=== PATIENT | male | born 1965 | race African-American/Black ===

== ENCOUNTER 2023-07-02 10:58 | Inpatient (IN) | payer MEDICARE, MEDICAID, SELFPAY ==
[2023-07-02] VITALS (27 sets, daily range): BP systolic 138–188; BP diastolic 81–102; PULSE 99–126; RESP 15–30; TEMP 36.9–39.1; O2SAT 96–100; BMI 27.0
--- NOTE | ~2023-07-02 | CT_ITS ---
Clinical Indication: Bacteremia CT Scan of the Chest, Abdomen, and Pelvis without Contrast: Technique: Contiguous sections were acquired throughout the chest, abdomen, and pelvis without IV con trast administration. Dose reduction technique was used on this scan by utilizing automated exposure control and iterative reconstruction technique. The dose-length product (DLP) was 1613.08 mGy-cm. COMPARISON: 07/02/2023 Findings: There is no evidence of any significant mediastinal, hilar or axillary lymphadenopathy. The mediastin al soft tissues appear normal. There is no evidence of pleural or pericardial effusion. 6 mm right middle lobe pulmonary nodule is increased and more confluent as compared to prior exam. St able 5 mm left lower lobe pulmonary nodule. Focal consolidation or nodule in the superior segment lef t lower lobe is mildly decreased in extent from prior exam (axial image 43). The liver, spleen, pancreas, gallbladder, adrenals and left kidney are within normal limits. Status p ost presumed right nephrectomy. There are atherosclerotic calcifications of the aorta. No lymphadeno bar. No bowel obstruction or bowel wall thickening. There is prominent stool right colon. Evidence of prio r right-sided colonic surgery.. Questionable wall thickening anterior urinary bladder versus underdistention. Prostate gland mildly e nlarged. No ascites. Impression: 6 mm right middle lobe pulmonary nodule, mildly increased and more confluent, and focal consolidation superior segment left lower lobe, mildly improved. These areas are suggestive of infectious/inflamma tory process. Additional 5 mm stable left lower lobe pulmonary nodule, with appearance more suggestive a chronic pu lmonary nodule, most likely benign. Postoperative change in the abdomen/pelvis, as above. Reviewed, dictated and finalized at location M. D CHECKER Impression: 6 mm right middle lobe pulmonary nodule, mildly increased and more confluent, a nd focal consolidation superior segment left lower lobe, mildly improved. These areas are suggestive of infectious/inflammatory process. Additional 5 mm stable left lower lobe pulmonary nodule, with appearance more s uggestive a chronic pulmonary nodule, most likely benign. Postoperative change in the abdomen/pelvis, as above.
--- NOTE | ~2023-07-02 | US_ITS ---
EXAMINATION: US soft tissue UE LT DATE: 07/06/2023 14:46 INDICATION: Left upper extremity abscess. TECHNIQUE: Multiple grayscale and Doppler ultrasound images of the left upper extremity were obtained . COMPARISON: Chest CT 07/02/2023 FINDINGS: There is a left upper arm arteriovenous fistula. No abscess or abnormal fluid collection. IMPRESSION: 1. No abscess or abnormal fluid collection. Reviewed, dictated and finalized at location A. PER
--- NOTE | ~2023-07-02 | CT_ITS ---
CT Scan of the Chest without Contrast: Clinical Indication: Lung mass Technique: Contiguous sections were acquired throughout the chest without intravenous contrast. Dose reduction technique was used on this scan by utilizing automated exposure control and iterative recon struction technique. The dose-length product (DLP) was 345.13 mGy-cm. Findings: There is no evidence of any significant mediastinal, hilar or axillary lymphadenopathy. The mediastin al soft tissues appear normal. There is no evidence of pleural or pericardial effusion. There is an irregular, somewhat nodular 1.8 cm consolidation in the superior segment left lower lobe (axial image 46). There is an additional 5 mm left lower lobe pulmonary nodule (axial image 57). Ther e is an additional 5 mm right middle lobe nodule with presumed focal cavitation (axial image 51). Images through the upper abdomen reveal no abnormalities. There is extensive DISH of the thoracic spi ne. Impression: 1.8 cm area of consolidation versus nodule superior segment left lower lobe. Appearance is more sugge stive of pneumonia, however soft tissue lesion is not completely excluded.. Consider short-term follo w-up CT in 1 month after interval therapy versus attempted tissue sampling. Additional subcentimeter pulmonary nodules, as above. These could also be reassessed at follow-up CT. Reviewed, dictated and finalized at location . TRONIC GLUER Impression: 1.8 cm area of consolidation versus nodule superior segment left lower lobe. Ap pearance is more suggestive of pneumonia, however soft tissue lesion is not com pletely excluded.. Consider short-term follow-up CT in 1 month after interval t herapy versus attempted tissue sampling. Additional subcentimeter pulmonary nodules, as above. These could also be reass essed at follow-up CT.
--- NOTE | ~2023-07-02 | XR_ITS ---
XR chest 2V DATE: 07/02/2023 12:01 INDICATION: Fever, chest tightness TECHNIQUE: PA and lateral views COMPARISON: 03/18/2014 2 view chest FINDINGS: Normal heart size. No hilar or mediastinal enlargement. Possible approximately 12 mm nodular density, left mid lung. CT thorax is recommended. No pulmonary infiltrate or consolidation, pleural effusion or pulmonary vascular congestion or pneumo thorax. Spurring and mild dextroscoliosis of the thoracolumbar spine. Osteoarthritis at both glenohumeral joints. IMPRESSION: Possible 12 mm mass , left mid lung; CT thorax is recommended. Reviewed, dictated and finalized at location B. RER
--- NOTE | 2023-07-02 11:06 | ECG_ITS ---
Measurements Intervals [place] Rate: 107 P: 17 GA: 146 QRS: -18 QRSD: 88 T: 22 QT: 326 QTc: 436 Interpretive Statements SINUS TACHYCARDIA ATRIAL AND VENTRICULAR PREMATURE COMPLEXES POSSIBLE LEFT ATRIAL ENLARGEMENT POSSIBLE LEFT VENTRICULAR HYPERTROPHY BORDERLINE ECG NO PREVIOUS ECG AVAILABLE FOR COMPARISON Electronically Signed On 07-02-2023 11:16:37 MANUFACTURED BUILDINGS SUPERVISOR by Monty Davidson D.O.
[2023-07-02] MEDS: ACETAMINOPHEN 325 MG TABLET 650 MG PO ×2 (11:23→20:23)
[2023-07-02 11:30] LABS: Basophils Percent Auto 0.3 % (0.2-1.2); Hematocrit 35.4 % (42.0-52.0); Hemoglobin 11.8 g/dL (14.0-18.0); Immature Granulocyte Absolute 0.04 K/mm3 (0.00-0.031); Immature Granulocyte Percent A 0.5 % (0-0.5); Immature Platelet Fraction Pct 5.1 % (0.9-11.2); Lymphocytes Percent Auto 6.5 % (18.3-44.2); Mean Corpuscular HGB Conc 33.3 g/dl (32-36); Mean Corpuscular Volume 98.9 fl (80-100); Mean Platelet Volume 10.5 fl (7.4-10.4); Monocytes Absolute Auto 0.5 K/mm3 (0.1-0.6); Monocytes Percent Auto 6.7 % (2.6-8.5); Neutrophils Absolute Auto 6.6 K/mm3 (1.3-6.7); Platelet Count Result 85 k/mm3 (150-375); Red Blood Count 3.58 M/mm3 (4.6-6.20); White Blood Count 7.7 K/mm3 (4.5-10.0)
[2023-07-02 11:36] LABS: INR 0.9; Prothrombin Time 12.2 Seconds (11.1-14.7)
[2023-07-02 11:37] LABS: Partial Thromboplastin Time 34.7 SECONDS (22.3-36.8)
[2023-07-02 11:41] LABS: Alanine Aminotransferase 29 U/L (6-50); Albumin Level 4.7 g/dL (3.5-5.1); Alkaline Phosphatase 72 U/L (38-126); Anion Gap 15 mmol/L (8-16); Aspartate Amino Transferase 64 U/L (17-59); Bilirubin,Total 0.8 mg/dL (0.2-1.3); Blood Urea Nitrogen 19 mg/dL (9-20); Calcium 9.8 mg/dL (8.4-10.2); Carbon Dioxide 31 mmol/L (22-30); Chloride 89 mmol/L (98-107); Estimated CRCL calculation 21 ml/min; Estimated Glomerular Filt Rate 19; Glucose 106 mg/dL (65-110); Potassium 3.9 mmol/L (3.4-5.0); Sodium 135 mmol/L (137-145)
[2023-07-02 12:07] LABS: Influenza A QL RT-PCR Negative (Negative); Influenza B QL RT-PCR Negative (Negative); RSV RNA, RT-PCR Negative (Negative); SARS-CoV-2 RNA PCR Negative (Negative); Troponin I 0.113 ng/mL (0.000-0.034)
--- NOTE | 2023-07-02 12:21 | ED.GENADULT ---
HPI - General Adult General Chief complaint: Unspecified Stated complaint: sick case Time Seen by Provider: 07/02/23 11:10 History of Present Illness HPI narrative: Patient is a 58-year-old male who presents ER with chest pain and shaking. Patient finished his dialysis today and was sent to the ER. Patient reports over last 3 days he has been feeling weak and short of breath. He has had cough and fevers/ chills. He has also had some central chest pain. No radiation. No alleviating factors for his discomfort. No known sick contacts. Related Data Home Medications Medication Instructions Recorded Confirmed allopurinol 300 mg tablet 300 mg PO DAILY 07/02/23 07/02/23 atorvastatin 40 mg tablet 40 mg PO DAILY 07/02/23 07/02/23 clonidine HCl 0.2 mg tablet 0.2 mg PO BID 07/02/23 07/02/23 ergocalciferol (vitamin D2) 1,250 1,250 mcg PO DAILY 07/02/23 07/02/23 mcg (50,000 unit) capsule pantoprazole 40 mg tablet,delayed 40 mg PO DAILY 07/02/23 07/02/23 release sodium bicarbonate 650 mg tablet 650 mg PO BID 07/02/23 07/02/23 Allergies Allergy/AdvReac Type Severity Reaction Status Date / Time No Known Allergies Allergy Unverified 02/16/21 15:51 Review of Systems Review of Systems: All systems reviewed & are unremarkable except as noted in HPI and below Constitutional: Constitutional: Reports no additional constitutional complaints ENT: Reports system reviewed and no additional complaints, except as documented Cardiovascular: Cardiovascular: Reports no additional cardiovascular complaints Respiratory: Respiratory: Reports no additional respiratory complaints Gastrointestinal: Gastrointestinal: Reports no additional gastrointestinal complaints [facility] Past Medical History Medical History (Updated 07/02/23 @ 18:40 by Josue Gonsales MD) End stage renal disease GERD (gastroesophageal reflux disease) Hyperlipidemia Hypertension Surgical History Surgical History (Updated 07/02/23 @ 18:38 by Josue Gonsales MD) Hemodialysis access, AV graft Social History Social History (System 02/16/21 @ 15:51 by Minerva Mendoza) Smoking status: Never smoker Second hand tobacco smoke exposure: No Additional smoking assessment comments: Daily marijuana smoker from pipe Alcohol intake: current Drinks per week: 175 Substance use: current Substance use type: marijuana Do You Feel Safe in your Home?: Yes Lack of Transportation: No Lack of Food: Never True Current Housing: I Have Housing Concerned About Future Housing: No Difficulty Paying Gas/Electric Bills: No Difficulty Paying for Meds: No Currently Unemployed: No Education: Don't Know Difficulty w/ Childcare or Family Care: No Spiritual care concerns: No Exam Narrative: GENERAL: Well-appearing, well-nourished, and in no acute distress. HEAD: Normocephalic, atraumatic. ENT: Mucous membranes moist. NECK: Supple. CHEST: Clear to auscultation. No respiratory distress. HEART: Tachycardic and regular. Normal peripheral pulses. ABDOMEN: Soft, nontender, nondistended. EXTREMITIES: Normal range of motion. No deformity. SKIN: Warm, dry, no rash. NEURO: Alert and oriented x3. PSYCH: Normal mood and affect. Course Vital Signs Vital signs: Vital Signs Temperature 100.3 F H 07/02/23 10:58 Pulse Rate 105 H 07/02/23 10:58 Respiratory Rate 07/02/23 10:58 Pulse Oximetry 100 07/02/23 10:58 Oxygen Delivery Room Air 07/02/23 10:58 Temperature 98.4 F 07/02/23 16:15 Pulse Rate 125 H 07/02/23 18:00 Respiratory Rate 07/02/23 16:15 Blood Pressure 182/98 H 07/02/23 16:15 Pulse Oximetry 100 07/02/23 16:15 Oxygen Delivery Room Air 07/02/23 10:58 Medical Decision Making Vital Signs Vital Signs: Vital Signs Temperature 100.3 F H 07/02/23 10:58 Pulse Rate 105 H 07/02/23 10:58 Respiratory Rate 07/02/23 10:58 Pulse Oximetry 100 07/02/23 10:58 Oxygen Delivery
[2023-07-02] MEDS: AZITHROMYCIN 500 MG/NS 250 ML 500 MG/250 ML BAG 250 MG IVPB (15:27)
--- NOTE | 2023-07-02 15:46 | ADMGEN ---
This patient, Harrison Bains, was admitted to IMU Room 209-01. Patient/family oriented to hospital policies and general routines including ID bracelet, bed and alarms, visiting hours, pain management, procedures, bathroom and other care routines, personal items, smoking policy, room service/diet, and visiting hours. Information on how to activate the Rapid Response Team has been discussed. Patient/Family are encouraged to report perceived risks to care and to ask questions if they do not understand what they are told or what they should do.
[2023-07-02] MEDS: LORazepam INJ (*CRX) 2 MG/ML VIAL IV PUSH ×2 (17:18→20:23)
[2023-07-02] MEDS: chlordiazePOXIDE (*CRX) 25 MG CAPSULE PO (17:18)
[2023-07-02 18:16] LABS: Glucose Point of Care 106 mg/dl (65-105)
[2023-07-02 18:40] LABS: Troponin I 0.116 ng/mL (0.000-0.034)
[2023-07-02 22:04] LABS: Troponin I 0.136 ng/mL (0.000-0.034)
[2023-07-02] MEDS: chlordiazePOXIDE (*CRX) 25 MG CAPSULE 50 MG PO (23:08)
--- NOTE | 2023-07-02 23:13 | PM.IMHP ---
H&P: HPI History of Present Illness Date/Time: 07/02/23 23:13 Chief Complaint: Patient came to the ER for evaluation because of his shaking and chest pain. Narrative: He is a 58 years old white male with ESRD on hemodialysis who was finishing up his hemodialysis earlier today and was sent to the ER for evaluation as he was feeling weak, short of breath and was shaking. He also had some cough and fever with chills. He is also complaining of chest pain located in the anterior chest without any radiation, intensity 2 to 4/10 without any palpitations or sweating. He is chronic alcohol user and drinks alcohol every day. Chest x-ray was done which showed a possible 12 mm mass in the left middle lobe recommending CT scan of thorax which showed findings consistent with pneumonia. He was started on IV antibiotics and medications for alcohol withdrawal and is being admitted for medical management, hemodialysis and close follow-up. Review of Systems Review of Systems: 14 systems were reviewed with pertinent positives and negatives per HPI. Except as documented in the HPI/progress notes, all other systems were reviewed and are negative. All systems reviewed & are unremarkable except as noted in HPI and below PMFSH Past Medical History Medical History (Updated 07/03/23 @ 00:29 by Ray Boss MD) Abnormal CT of the chest Chronic alcohol use End stage renal disease GERD (gastroesophageal reflux disease) Hyperlipidemia Hypertension Surgical History Surgical History Hemodialysis access, AV graft Social History Social History Smoking status: Never smoker Second hand tobacco smoke exposure: No Additional smoking assessment comments: Daily marijuana smoker from pipe Alcohol intake: current Drinks per week: 175 Substance use: current Substance use type: marijuana Do You Feel Safe in your Home?: Yes Lack of Transportation: No Lack of Food: Never True Current Housing: I Have Housing Concerned About Future Housing: No Difficulty Paying Gas/Electric Bills: No Difficulty Paying for Meds: No Currently Unemployed: No Education: Don't Know Difficulty w/ Childcare or Family Care: No Spiritual care concerns: No Meds Home Medications and Allergies Home Medications Medication Instructions Recorded Confirmed Type allopurinol 300 mg tablet 300 mg PO DAILY 07/02/23 07/02/23 History atorvastatin 40 mg tablet 40 mg PO DAILY 07/02/23 07/02/23 History clonidine HCl 0.2 mg tablet 0.2 mg PO BID 07/02/23 07/02/23 History ergocalciferol (vitamin D2) 1,250 1,250 mcg PO DAILY 07/02/23 07/02/23 History mcg (50,000 unit) capsule pantoprazole 40 mg tablet,delayed 40 mg PO DAILY 07/02/23 07/02/23 History release sodium bicarbonate 650 mg tablet 650 mg PO BID 07/02/23 07/02/23 History Allergies Allergy/AdvReac Type Severity Reaction Status Date / Time No Known Allergies Allergy Unverified 02/16/21 15:51 Vital Signs Vital Signs - 24 hr 07/02/23 10:58 07/02/23 12:16 07/02/23 11:35 Temperature 37.9 C H 37.8 C H Pulse Rate 105 H 105 H Respiratory Rate 20 16 Blood Pressure Pulse Oximetry 100 Oxygen Delivery Room Air 07/02/23 11:45 07/02/23 12:48 07/02/23 13:00 Temperature Pulse Rate 106 H 109 H 104 H Respiratory Rate 25 H 18 22 H Blood Pressure Pulse Oximetry Oxygen Delivery 07/02/23 13:15 07/02/23 13:30 07/02/23 13:31 Temperature Pulse Rate 101 H 99 111 H Respiratory Rate 15 16 18 Blood Pressure 148/91 H Pulse Oximetry 99 99 100 Oxygen Delivery 07/02/23 13:39 07/02/23 13:45 07/02/23 14:00 Temperature Pulse Rate 101 H 100 102 H Respiratory Rate 26 H 17 27 H Blood Pressure 160/87 H Pulse Oximetry 99 99 97 Oxygen Delivery 07/02/23 14:01 07/02/23 14:15 07/02/23 14:38 Temperature Pulse Rate 101 H 104 H 109 H Respiratory Rate
[2023-07-03] VITALS (12 sets, daily range): BP systolic 107–146; BP diastolic 68–87; PULSE 63–144; RESP 20–32; TEMP 36.8–37.4; O2SAT 94–100
--- NOTE | 2023-07-03 00:26 | ECHO_ITS ---
Patient Info Name: Harrison Bains Age: 58 years : 1965 Gender: Male Ht: 72 in Wt: 202 lbs BSA: 2.17 m2 HR: 96 bpm BP: 141 / 82 mmHg Heart Rhythm: Sinus Rhythm Technical Quality: Good Exam Date: 07/03/2023 8:57 AM Exam Location: Echo Lab Patient Status: Inpatient Admit Date: 07/03/2023 Staff Ordering Physician: Ray Boss MD Reel And Rewinder Operator: Talya Goody RDCS Attending Provider: Danika Duran MD Exam Type: CA echo doppler color flow Study Info Indications - chest pain/elevated troponin Complete two-dimensional, color flow and Doppler transthoracic echocardiogram is performed. Summary 1. Complete two-dimensional, color flow and Doppler transthoracic echocardiogram is performed. 2. Left ventricular chamber dimension is normal. 3. Left ventricular systolic function is normal, estimated at 60-65%. 4. There is moderately increased left ventricular wall thickness. 5. The left ventricular diastolic function is grade I diastolic dysfunction. 6. Right ventricular systolic function is normal. 7. There is mild aortic valve regurgitation. 8. The aortic root size at the sinus of Valsalva is mildly dilated. Left Ventricle Left ventricular chamber dimension is normal. Left ventricular systolic function is normal, estimated at 60-65%. There is moderately increased left ventricular wall thickness. The left ventricular diastolic function is grade I diastolic dysfunction. Right Ventricle Right ventricular chamber dimension is normal. Right ventricular systolic function is normal. Left Atria Left atrial chamber dimension is normal. Right Atria Right atrial chamber dimension is normal. Atrial Septum Intact interatrial septum visualized by color flow imaging. Aortic Valve The aortic valve is not well visualized. There is no aortic valve stenosis. There is mild aortic valve regurgitation. Pulmonic Valve The pulmonic valve is not well visualized. Mitral Valve There is trace mitral valve regurgitation. Tricuspid Valve There is trace tricuspid valve regurgitation. Pericardium/Pleural There is no pericardial effusion. Inferior Vena Cava Inferior vena cava is not well visualized. Aorta The aortic root size at the sinus of Valsalva is mildly dilated. Left Ventricular Outflow Tract Name Value Normal LVOT 2D LVOT Diameter 2.2 cm LVOT Doppler LVOT Peak Gradient 4 mmHg LVOT Mean Gradient 2 mmHg LVOT VTI 27 cm LVOT VTI/AV VTI Ratio 1.1 LVOT Stroke Volume 102 ml LVOT CO 8.3 l/min LVOT CI 3.8 l/min/m2 Pulmonic Valve Name Value Normal RVOT Doppler RVOT Peak Gradient 2 mmHg PV Doppler PV Peak Gradient 2 mmHg
[2023-07-03] MEDS: chlordiazePOXIDE (*CRX) 25 MG CAPSULE 50 MG PO (05:03)
[2023-07-03 05:29] LABS: Basophils Percent Auto 0.1 % (0.2-1.2); Eosinophils Absolute Auto 0.2 K/mm3 (0-0.3); Eosinophils Percent Auto 2.3 % (0-4.4); Hematocrit 31.7 % (42.0-52.0); Hemoglobin 10.5 g/dL (14.0-18.0); Immature Granulocyte Absolute 0.07 K/mm3 (0.00-0.031); Immature Granulocyte Percent A 0.8 % (0-0.5); Immature Platelet Fraction Pct 8.3 % (0.9-11.2); Lymphocytes Absolute Auto 0.74 K/mm3 (0.9-3.2); Lymphocytes Percent Auto 8.6 % (18.3-44.2); Mean Corpuscular HGB Conc 33.1 g/dl (32-36); Mean Corpuscular Volume 99.7 fl (80-100); Mean Platelet Volume 11.9 fl (7.4-10.4); Monocytes Percent Auto 11.3 % (2.6-8.5); Neutrophils Absolute Auto 6.6 K/mm3 (1.3-6.7); Neutrophils Percent Auto 76.9 % (45.5-73.1); Platelet Count Result 72 k/mm3 (150-375); Red Blood Count 3.18 M/mm3 (4.6-6.20); Red Cell Distribution Width 17.5 % (11.5-14.5); White Blood Count 8.6 K/mm3 (4.5-10.0)
[2023-07-03 06:07] LABS: Anisocytosis 1+ (NORMAL); Hypochromasia 1+ (NORMAL); Platelet Estimate Decreased (Adequate)
[2023-07-03 06:08] LABS: Schistocytes None Seen (NORMAL)
--- NOTE | 2023-07-03 07:00 | ECG_ITS ---
Measurements Intervals [place] Rate: 87 P: 31 AK: 149 QRS: -20 QRSD: 89 T: 23 QT: 365 QTc: 439 Interpretive Statements SINUS RHYTHM VENTRICULAR PREMATURE COMPLEX VOLTAGE CRITERIA FOR LVH BORDERLINE ECG COMPARED TO ECG 07/02/2023 11:12:11 SINUS RHYTHM NOW PRESENT Electronically Signed On 07-03-2023 12:59:13 LITHOGRAPHIC RETOUCHER APPRENTICE by Monty Davidson D.O.
[2023-07-03 07:21] LABS: Anion Gap 13 mmol/L (8-16); Blood Urea Nitrogen 38 mg/dL (9-20); Calcium 8.8 mg/dL (8.4-10.2); Carbon Dioxide 27 mmol/L (22-30); Chloride 91 mmol/L (98-107); Estimated CRCL calculation 13 ml/min; Estimated Glomerular Filt Rate 11; Glucose 79 mg/dL (65-110); Potassium 5.1 mmol/L (3.4-5.0); Sodium 131 mmol/L (137-145)
[2023-07-03 07:34] LABS: Troponin I 0.142 ng/mL (0.000-0.034)
[2023-07-03] MEDS: ATORVASTATIN 40 MG TABLET PO (08:10)
[2023-07-03] MEDS: THIAMINE HCL 200 MG/2 ML VIAL 100 MG IV PUSH (08:10)
[2023-07-03] MEDS: PANTOPRAZOLE 40 MG TABLET PO (08:10)
[2023-07-03] MEDS: cloNIDine HCL 0.2 MG TABLET PO ×2 (08:10→18:50)
[2023-07-03] MEDS: allopurinoL 300 MG TABLET PO (08:10)
[2023-07-03] MEDS: SODIUM BICARBONATE TAB 650 MG TABLET PO ×2 (08:10→18:50)
[2023-07-03] MEDS: HYDROcodone/acetaminophen (*CRX) 5-325 MG TABLET 1 TAB PO ×2 (08:14→15:53)
--- NOTE | 2023-07-03 08:54 | PM.IMPN ---
Progress Note: A&P Assessment and Plan (1) Abnormal CT of the chest: Code(s): R93.89 - Abnormal findings on diagnostic imaging of other specified body structures Status: Acute (2) Alcohol withdrawal: Code(s): F10.939 - Alcohol use, unspecified with withdrawal, unspecified Status: Acute (3) Elevated troponin: Code(s): R79.89 - Other specified abnormal findings of blood chemistry Status: Acute (4) Chronic alcohol use: Code(s): F10.90 - Alcohol use, unspecified, uncomplicated Status: Acute (5) Pneumonia: Code(s): J18.9 - Pneumonia, unspecified organism Status: Acute (6) Chest pain: Code(s): R07.9 - Chest pain, unspecified Status: Acute Plan 58M w/ PMH alcohol abuse, GERD, HLD, HTN, ESRD on dialysis MWF presents with shaking and chest soreness admitted on 07/02/23. # tremors - no LOC, possibly 2/2 to alcohol withdrawal although unlikely given his continued heavy and sustained use, possibly 2/2 to CAP, he also felt feverish. resolved. # CAP - cont ceftriaxone and azithromycin. blood cultures pending. no evidence of sepsis. treat for 5 days - 12mm mass in left lung. repeat CT 1 month after treatment of pneumonia # alcohol abuse with possible alcohol withdrawal - decrease librium to 25mg po tid. cont CIWA protocol. thiamine and folate daily. - counseled. pt wants to change from 2 liters of wine to 1 liter of wine per day but no less. care coordination consultation - PT/OT - thrombocytopenia, likely 2/2 to cirrhosis/alcohol # elevated troponin - currently flat. cont to trend. chest pain atypical. EKG w/o acute ischemia # ESRD on dialysis MWF - last dialysis Friday. consult nephrology # HTN - controlled. CPM # GERD - CPM FEN: saline lock IV, renal diet GI prophylaxis: on home dosing DVT prophylaxis: lovenox Lines: pIV Code Status: Full Code Dispo: stable. More than 35 minutes spent on chart review, patient interaction and assessment and plan. Subjective Date/time seen: 07/03/23 08:54 Interval history: NAOE. pt reports his shaking is gone after this morning's medications. he feels back to his normal. Review of Systems Review of Systems: All systems reviewed & are unremarkable except as noted in HPI and below (subjective) Exam Const: General: comfortable and no acute distress HENMT: Other: poor dentition Eyes: Pupils: Equal, round and reactive pupils present Resp: Effort & Inspection: normal respiratory effort Auscultation: clear to auscultation bilaterally Cardio: Rate: regular rate Rhythm: regular rhythm Heart sounds: no gallops, no murmurs and no rubs GI: GI Palp: Yes Soft to palpation and No Tenderness to palpation present (GI) Extrem: General: no edema Objective Data Vital Signs Vital Signs: Vital Signs - 24 hr 07/02/23 10:58 07/02/23 12:16 07/02/23 11:35 Temperature 100.3 F H 100.0 F H Pulse Rate 105 H 105 H Respiratory Rate 20 16 Blood Pressure Pulse Oximetry 100 Oxygen Delivery Room Air 07/02/23 11:45 07/02/23 12:48 07/02/23 13:00 Temperature Pulse Rate 106 H 109 H 104 H Respiratory Rate 25 H 18 22 H Blood Pressure Pulse Oximetry Oxygen Delivery 07/02/23 13:15 07/02/23 13:30 07/02/23 13:31 Temperature Pulse Rate 101 H 99 111 H Respiratory Rate 15 16 18 Blood Pressure 148/91 H Pulse Oximetry 99 99 100 Oxygen Delivery 07/02/23 13:39 07/02/23 13:45 07/02/23 14:00 Temperature Pulse Rate 101 H 100 102 H Respiratory Rate 26 H 17 27 H Blood Pressure 160/87 H Pulse Oximetry 99 99 97 Oxygen Delivery 07/02/23 14:01 07/02/23 14:15 07/02/23 14:38 Temperature Pulse Rate 101 H 104 H 109 H Respiratory Rate 27 H 30 H 24 H Blood Pressure 156/92 H Pulse Oximetry Oxygen Delivery 07/02/23 14:45 07/02/23 15:35 07/02/23 16:15 Temperature 98.9 F 98.4 F Pulse Rate 110 H 115 H 119 H Respiratory Rate 16 28 H 20 Blood Pressur
[2023-07-03 11:59] LABS: Glucose Point of Care 123 mg/dl (65-105)
[2023-07-03 12:18] LABS: Troponin I 0.092 ng/mL (0.000-0.034)
--- NOTE | 2023-07-03 13:20 | PM.CNNEP ---
Assessment and Plan Assessment and plan (1) End stage renal disease: Code(s): N18.6 - End stage renal disease Status: Chronic Assessment and Plan: HD tomorrow continue M/W/F dialysis schedule while hospitalized follow electrolytes, volume status, and clearance follows with Dr. Hayes at [facility] (2) Pneumonia: Code(s): J18.9 - Pneumonia, unspecified organism Status: Acute Assessment and Plan: as noted by admission imaging follow culture data on antibiotics (3) Hypertension: Code(s): I10 - Essential (primary) hypertension Status: Chronic Assessment and Plan: reasonable control at this time follow trend of hemodynamics (4) Anemia: Code(s): D64.9 - Anemia, unspecified Status: Chronic Assessment and Plan: due to ESRD Epogen with HD follow trend of H/H (5) Alcohol withdrawal: Code(s): F10.939 - Alcohol use, unspecified with withdrawal, unspecified Status: Acute Assessment and Plan: known history of alcohol use tremor related to withdrawal (?) - seems less likely resolved if not resolving I will continue follow the patient with you while he remains hospitalized and make further recommendations as needed. Thank you for allowing me to participate in the care of this patient. History of Present Illness Reason for Consult Consult date: 07/03/23 Reason for consult: end stage renal disease Chief Complaint Chief complaint: chest pain,pneumonia History of Present Illness Narrative: The patient is a 58-year-old male with a past medical history as outlined below who presented to [facility] Emergency room due to mild shortness of breath, weakness, and shaking. The patient reports that he has been having some productive cough in association with subjective fevers and chills. However, more recently, he has stated that he feels more weaker / fatigued in general in association with mild shortness of breath and shaking hands thought to be tremors. Has the symptoms seem to be progressively getting worse, he presented to the emergency room for further assessment. Workup and evaluation emergency room demonstrated the patient to be hemodynamically stable and in no acute distress. Routine blood work demonstrated labs consistent with his known history of end-stage renal disease but his chest x-ray did demonstrate a 12 mm mass in the left middle lobe with recommendations of a CT scan of the chest. Subsequent CT scan of the chest demonstrated findings consistent with pneumonia. After appropriate cultures were obtained, he was started on IV antibiotic therapy and subsequently admitted to the hospital for further evaluation and therapy. There was some concerns that his shaking maybe early signs of alcohol withdrawal as he does consume a great deal of alcohol every day. He was initiated on alcohol withdrawal protocol as well. Since his admission, he reports feeling significantly better but still not back to baseline. Renal consultation was requested due to his end-stage renal disease. The patient normally dialyzes on a Friday, Friday, Friday dialysis schedule at [facility] under the care of Dr. Cuong Hayes. He reports compliance with his dialysis treatments and not having any significant issues or problems in general with dialysis. His last dialysis treatment was yesterday prior to his presentation to [facility] Emergency Room. He is due for dialysis tomorrow. Currently, at the time my evaluation, he does not appear to be in acute distress. Review of Systems Review of Systems: As per HPI. [facility] Past Medical History Medical History Abnormal CT of the chest Chronic alcohol use End stage renal disease GERD (gastroesophageal reflux disease) Hyperlipidemia Hypertension Surg
[2023-07-03] MEDS: VANCOMYCIN 2,000 MG/NS 500 ML 2,000 MG/500 ML BAG 250 MG IVPB (13:42)
[2023-07-03] MEDS: AZITHROMYCIN 500 MG/NS 250 ML 500 MG/250 ML BAG 250 MG IVPB (13:42)
[2023-07-03] MEDS: chlordiazePOXIDE (*CRX) 25 MG CAPSULE PO ×2 (13:43→21:28)
[2023-07-03 18:44] LABS: Glucose Point of Care 142 mg/dl (65-105)
[2023-07-04] VITALS (35 sets, daily range): BP systolic 90–148; BP diastolic 44–86; PULSE 75–105; RESP 16–24; TEMP 36.2–38.7; O2SAT 94–100
[2023-07-04] MEDS: chlordiazePOXIDE (*CRX) 25 MG CAPSULE PO (05:37)
[2023-07-04 05:55] LABS: Basophils Percent Auto 0.2 % (0.2-1.2); Eosinophils Percent Auto 0.5 % (0-4.4); Hematocrit 28.7 % (42.0-52.0); Hemoglobin 9.4 g/dL (14.0-18.0); Immature Granulocyte Absolute 0.03 K/mm3 (0.00-0.031); Immature Granulocyte Percent A 0.5 % (0-0.5); Lymphocytes Absolute Auto 0.76 K/mm3 (0.9-3.2); Lymphocytes Percent Auto 12.1 % (18.3-44.2); Mean Corpuscular HGB Conc 32.8 g/dl (32-36); Mean Corpuscular Hemoglobin 32.6 pg (26-34); Mean Corpuscular Volume 99.7 fl (80-100); Mean Platelet Volume 12.4 fl (7.4-10.4); Monocytes Absolute Auto 0.9 K/mm3 (0.1-0.6); Monocytes Percent Auto 13.7 % (2.6-8.5); Neutrophils Absolute Auto 4.6 K/mm3 (1.3-6.7); Platelet Count Result 90 k/mm3 (150-375); Red Blood Count 2.88 M/mm3 (4.6-6.20); Red Cell Distribution Width 17.3 % (11.5-14.5); White Blood Count 6.3 K/mm3 (4.5-10.0)
[2023-07-04 05:57] LABS: Anion Gap 12 mmol/L (8-16); Blood Urea Nitrogen 70 mg/dL (9-20); Calcium 8.8 mg/dL (8.4-10.2); Carbon Dioxide 25 mmol/L (22-30); Chloride 91 mmol/L (98-107); Estimated CRCL calculation 10 ml/min; Estimated Glomerular Filt Rate 8; Glucose 97 mg/dL (65-110); Magnesium 2.1 mg/dL (1.6-2.3); Phosphorus 5.3 mg/dL (2.5-4.5); Potassium 4.9 mmol/L (3.4-5.0); Sodium 128 mmol/L (137-145)
[2023-07-04 06:00] LABS: Vancomycin Random 21.8 ug/mL (10-20)
[2023-07-04 06:57] LABS: Hepatitis B Surface Antigen Negative (Negative)
[2023-07-04 07:16] LABS: Hepatitis B Surface Anti Res Positive
[2023-07-04 07:29] LABS: MRSA (PCR) NOT DETECTED (NOT DETECTE)
[2023-07-04] MEDS: allopurinoL 300 MG TABLET PO (08:16)
[2023-07-04] MEDS: ENOXAPARIN 30 MG/0.3 ML SYRINGE SUB-Q (08:16)
[2023-07-04] MEDS: SODIUM BICARBONATE TAB 650 MG TABLET PO ×2 (08:16→17:05)
[2023-07-04] MEDS: ATORVASTATIN 40 MG TABLET PO (08:16)
[2023-07-04] MEDS: THIAMINE HCL 200 MG/2 ML VIAL 100 MG IV PUSH (08:17)
[2023-07-04] MEDS: PANTOPRAZOLE 40 MG TABLET PO (08:17)
[2023-07-04] MEDS: cloNIDine HCL 0.2 MG TABLET PO ×2 (08:17→17:05)
[2023-07-04] MEDS: FOLIC ACID 1 MG TABLET PO (08:17)
--- NOTE | 2023-07-04 10:16 | PM.PNNEP ---
Progress Note: A&P Assessment and Plan (1) End stage renal disease: Code(s): N18.6 - End stage renal disease Status: Chronic Assessment and Plan: HD today continue M/W/F dialysis schedule while hospitalized follow electrolytes, volume status, and clearance follows with Dr. Hayes at [facility] (2) Bacteremia: Code(s): R78.81 - Bacteremia Status: Acute Assessment and Plan: blood cultures with StapStaphylococcus aureus follow repeat culture on antibiotic therapy (3) Pneumonia: Code(s): J18.9 - Pneumonia, unspecified organism Status: Acute Assessment and Plan: as noted by admission imaging culture data noted on antibiotics (4) Hypertension: Code(s): I10 - Essential (primary) hypertension Status: Chronic Assessment and Plan: reasonable control at this time follow trend of hemodynamics (5) Anemia: Code(s): D64.9 - Anemia, unspecified Status: Chronic Assessment and Plan: due to ESRD Epogen with HD follow trend of H/H Will continue to follow. Subjective Date/time seen: 07/04/23 10:16 Interval history: Follow-up for end stage renal disease on hemodialysis. Tolerating dialysis treatment at the time of my visit (seen on HD at 10:05PM); tremor seems to have resolved; not very talkative currently; no apparent distress voiced. Exam Narrative: General: WD/WN male in NAD Heart: normal S1 and S2; no rub Lungs: clear to auscultation Abdomen: soft, nontender, nondistended, positive bowel sounds Extremities: no cyanosis or clubbing; no edema Skin: warm and dry Objective Data Vital Signs Vital Signs: Vital Signs Temp Pulse Pulse Resp BP Pulse Ox O2 Del Method 07/04/23 10:15 89 111/63 07/04/23 10:00 86 118/64 07/04/23 09:45 89 130/73 07/04/23 09:30 89 128/77 07/04/23 09:14 91 122/66 07/04/23 09:02 98.8 F 93 16 135/76 98 07/04/23 09:02 07/04/23 08:00 88 22 H 99 Room Air 07/04/23 08:00 88 07/04/23 08:00 88 148/86 H 07/04/23 07:37 97.1 F L 81 24 H 148/86 H 99 07/04/23 05:52 83 07/04/23 04:00 98.4 F 83 24 H 123/76 96 07/04/23 04:00 79 22 H 94 Room Air 07/04/23 04:00 135/86 07/04/23 04:00 79 07/04/23 01:47 78 07/04/23 00:00 80 22 H 94 Room Air 07/04/23 00:00 135/86 07/04/23 00:00 80 07/03/23 23:46 98.6 F 80 22 H 135/86 94 07/03/23 22:00 84 07/03/23 20:00 84 24 H 95 Room Air 07/03/23 20:00 107/68 07/03/23 20:00 84 07/03/23 20:00 99.4 F 63 24 H 107/68 95 07/03/23 17:56 96 07/03/23 16:00 144 H 24 H 98 Room Air 07/03/23 16:00 145/87 H 07/03/23 16:00 144 H 07/03/23 16:00 99.4 F 100 24 H 145/87 H 98 Intake/Output Intake/Output: Intake & Output 07/01/23 07/02/23 07/03/23 07/04/23 23:59 23:59 23:59 23:59 Intake Total 740 1989 480 Balance 740 1989 480 Meds/Results Medications: Active Medications Generic Name Dose Route Start Last Admin Trade Name Freq PRN Reason Stop Dose Admin Acetaminophen 650 mg 07/03/23 00:25 07/04/23 15:14 Acetaminophen 325 Mg Tablet PO 650 mg Q4H PRN Administration Mild Pain (1-3) or Fever Hydrocodone Bitart/Acetaminophen 1 tab 07/02/23 14:20 07/03/23 15:53 Hydrocodone/Acetaminophen (*Crx) 5-325 Mg Tablet PO 1 tab Q4H PRN Administration Pain Rated 4-6 Al Hydrox/Mg Hydrox/Simethicone 30 ml 07/03/23 00:25 Mag Hydrox/Al Hydrox/Simeth 30 Ml Udc PO QID PRN Dyspepsia Allopurinol 300 mg 07/03/23 09:00 07/04/23 08:16 Allopurinol 300 Mg Tablet PO 300 mg DAILY SHERRIE Administration Atorvastatin Calcium 40 mg 07/03/23 09:00 07/04/23 08:16 Atorvastatin 40 Mg Tablet PO 40 mg DAILY SHERRIE Administration Azithromyc
[2023-07-04] MEDS: ALBUMIN HUMAN 25% 12.5 GM/50ML 50 ML 999 GM ×2 (10:50→12:00)
[2023-07-04] MEDS: EPOETIN ALFA-EPBX 10,000 UNITS/ML VIAL 10000 UNITS IV PUSH (11:00)
[2023-07-04] MEDS: SODIUM CHLORIDE 0.9% IV 1,000 ML 999 ML IV CONT (11:01)
--- NOTE | 2023-07-04 12:14 | PM.IMPN ---
Progress Note: A&P Assessment and Plan (1) Anemia: Code(s): D64.9 - Anemia, unspecified Status: Chronic (2) Hypertension: Code(s): I10 - Essential (primary) hypertension Status: Chronic (3) End stage renal disease: Code(s): N18.6 - End stage renal disease Status: Chronic (4) Abnormal CT of the chest: Code(s): R93.89 - Abnormal findings on diagnostic imaging of other specified body structures Status: Acute (5) Alcohol withdrawal: Code(s): F10.939 - Alcohol use, unspecified with withdrawal, unspecified Status: Acute (6) Chronic alcohol use: Code(s): F10.90 - Alcohol use, unspecified, uncomplicated Status: Acute (7) Elevated troponin: Code(s): R79.89 - Other specified abnormal findings of blood chemistry Status: Acute (8) Pneumonia: Code(s): J18.9 - Pneumonia, unspecified organism Status: Acute Plan 58M w/ PMH alcohol abuse, GERD, HLD, HTN, ESRD on dialysis MWF presents with shaking and chest soreness admitted on 07/02/23. # bacteremia - 1/3 blood cultures positive for staph aureus x2. pending repeat. vancomycin inititated. # tremors - no LOC, possibly 2/2 to alcohol withdrawal although unlikely given his continued heavy and sustained use, possibly 2/2 to CAP, he also felt feverish. resolved. # CAP - cont ceftriaxone and azithromycin. treat for 5 days - 12mm mass in left lung. repeat CT 1 month after treatment of pneumonia # alcohol abuse with possible alcohol withdrawal - d/c librium and use ativan prn. cont CIWA protocol. thiamine and folate daily. - counseled. pt wants to change from 2 liters of wine to 1 liter of wine per day but no less. care coordination consultation - PT/OT - thrombocytopenia, likely 2/2 to cirrhosis/alcohol. ctm. # elevated troponin - currently flat. cont to trend. chest pain atypical. EKG w/o acute ischemia # ESRD on dialysis MWF - on schedule. consult nephrology # HTN - controlled. CPM # GERD - CPM FEN: saline lock IV, renal diet GI prophylaxis: on home dosing DVT prophylaxis: lovenox Lines: pIV Code Status: Full Code Dispo: stable. More than 35 minutes spent on chart review, patient interaction and assessment and plan. Subjective Date/time seen: 07/04/23 12:14 Interval history: naoe. patient isn't very conversational. he denies any symptoms including fever chills or cough. he believes his tremor is gone as well. Review of Systems Review of Systems: All systems reviewed & are unremarkable except as noted in HPI and below (subjective) Exam Const: General: comfortable and no acute distress Eyes: Pupils: Equal, round and reactive pupils present Neck: Neck: supple Resp: Effort & Inspection: normal respiratory effort Auscultation: clear to auscultation bilaterally, no crackles, no rales and no rhonchi Cardio: Rate: regular rate Rhythm: regular rhythm Heart sounds: no gallops, no murmurs and no rubs GI: GI Palp: Yes Soft to palpation and No Tenderness to palpation present (GI) Extrem: General: no edema Objective Data Vital Signs Vital Signs: Vital Signs - 24 hr 07/03/23 12:59 07/03/23 16:00 07/03/23 16:00 Temperature 99.4 F Pulse Rate 100 144 H Pulse Rate [Monitor] Respiratory Rate 24 H Blood Pressure 145/87 H Pulse Oximetry 98 Oxygen Delivery Room Air Fraction of Inspired Oxygen 07/03/23 16:00 07/03/23 16:00 07/03/23 14:00 Temperature Pulse Rate 144 H 100 Pulse Rate [Monitor] Respiratory Rate 24 H Blood Pressure 145/87 H Pulse Oximetry 98 Oxygen Delivery Room Air Fraction of Inspired Oxygen 07/03/23 17:56 07/03/23 20:00 07/03/23 20:00 Temperature 99.4 F Pulse Rate 96 63 84 Pulse Rate [Monitor] Respiratory Rate 24 H Blood Pressure 107/68 Pulse Oximetry 95 Oxygen Delivery Fraction of Inspired Oxygen 07/03/23 20:00 07/03/23 20:00 07/03/23 22:00 Temperature Pulse Rate
[2023-07-04] MEDS: AZITHROMYCIN 250 MG TABLET 500 MG PO (14:34)
[2023-07-04] MEDS: ACETAMINOPHEN 325 MG TABLET 650 MG PO (15:14)
[2023-07-04] MEDS: VANCOMYCIN 500 MG/NS 100 ML 500 MG/100 ML BAG 100 MG IVPB (17:25)
[2023-07-05] VITALS (14 sets, daily range): BP systolic 132–165; BP diastolic 58–81; PULSE 60–115; RESP 18–28; TEMP 37–37.9; O2SAT 95–98
--- NOTE | 2023-07-05 | ECHO_ITS ---
Patient Info Name: Harrison Bains Age: 58 years : 1965 Gender: Male Ht: 72 in Wt: 203 lbs BSA: 2.18 m2 HR: 91 bpm BP: 132 / 77 mmHg Heart Rhythm: Sinus Rhythm Technical Quality: Good Exam Date: 07/05/2023 1:00 PM Exam Location: Echo Lab Patient Status: Inpatient Admit Date: 07/03/2023 Staff Ordering Physician: Misty Dubon MD Food Tray Assembler: Talya Godoy RDCS Attending Provider: Danika Duran MD Exam Type: CA echo doppler color flow Study Info Indications - staph aureus bacteremia Complete two-dimensional, color flow and Doppler transthoracic echocardiogram is performed. Summary 1. Complete two-dimensional, color flow and Doppler transthoracic echocardiogram is performed. Recommendations * Normal LV size, moderate LVH, normal LV systolic function, ejection fraction about 55-60%; normal diastolic function. Normal RV size and systolic function. Normal mitral valve structure, trace mitral regurgitation. Aortic valve cusps are not well visualized, no hemodynamically significant stenosis; mild aortic regurgitation. Trace tricuspid regurgitation, RVSP 32 mmHg. Sinus rhythm. Left Ventricle Left ventricular chamber dimension is normal. Left ventricular systolic function is normal, estimated at 55-60%. There is moderately increased left ventricular wall thickness. The left ventricular diastolic function is normal. Right Ventricle Right ventricular chamber dimension is normal. Right ventricular systolic function is normal. Left Atria Left atrial chamber dimension is normal. Right Atria Right atrial chamber dimension is normal. Aortic Valve The aortic valve is not well visualized. There is no aortic valve stenosis. There is mild aortic valve regurgitation. Pulmonic Valve The pulmonic valve is normal. There is trace pulmonic regurgitation. Mitral Valve The mitral valve has normal leaflets. There is trace mitral valve regurgitation. Tricuspid Valve The tricuspid valve leaflets are normal. There is trace tricuspid valve regurgitation. Pericardium/Pleural The pericardium appears normal. Aorta The aortic root size at the sinus of Valsalva is borderline dilated. Left Ventricular Outflow Tract Name Value Normal LVOT 2D LVOT Diameter 2.2 cm LVOT Doppler LVOT Peak Gradient 5 mmHg LVOT Mean Gradient 2 mmHg LVOT VTI 19 cm LVOT VTI/AV VTI Ratio 0.9 LVOT Stroke Volume 74 ml LVOT CO 6.1 l/min LVOT CI 2.8 l/min/m2 Pulmonic Valve Name Value Normal RVOT Doppler RVOT Peak Gradient 1 mmHg PV Doppler PV Peak Gradient 3 mmHg Mitral Valve
[2023-07-05 05:26] LABS: Basophils Percent Auto 0.2 % (0.2-1.2); Eosinophils Absolute Auto 0.1 K/mm3 (0-0.3); Eosinophils Percent Auto 0.8 % (0-4.4); Hematocrit 28.1 % (42.0-52.0); Hemoglobin 9.4 g/dL (14.0-18.0); Immature Granulocyte Absolute 0.04 K/mm3 (0.00-0.031); Immature Granulocyte Percent A 0.6 % (0-0.5); Immature Platelet Fraction Pct 5.7 % (0.9-11.2); Lymphocytes Absolute Auto 0.93 K/mm3 (0.9-3.2); Lymphocytes Percent Auto 14.2 % (18.3-44.2); Mean Corpuscular HGB Conc 33.5 g/dl (32-36); Mean Corpuscular Hemoglobin 32.9 pg (26-34); Mean Corpuscular Volume 98.3 fl (80-100); Monocytes Absolute Auto 0.9 K/mm3 (0.1-0.6); Monocytes Percent Auto 13.9 % (2.6-8.5); Neutrophils Absolute Auto 4.6 K/mm3 (1.3-6.7); Neutrophils Percent Auto 70.3 % (45.5-73.1); Platelet Count Result 122 k/mm3 (150-375); Red Blood Count 2.86 M/mm3 (4.6-6.20); Red Cell Distribution Width 17.2 % (11.5-14.5); White Blood Count 6.6 K/mm3 (4.5-10.0)
[2023-07-05 05:32] LABS: Alanine Aminotransferase 58 U/L (6-50); Albumin Level 3.5 g/dL (3.5-5.1); Alkaline Phosphatase 120 U/L (38-126); Anion Gap 13 mmol/L (8-16); Aspartate Amino Transferase 141 U/L (17-59); Bilirubin,Total 0.5 mg/dL (0.2-1.3); Blood Urea Nitrogen 48 mg/dL (9-20); Calcium 8.8 mg/dL (8.4-10.2); Carbon Dioxide 29 mmol/L (22-30); Chloride 93 mmol/L (98-107); Estimated CRCL calculation 12 ml/min; Estimated Glomerular Filt Rate 10; Glucose 115 mg/dL (65-110); Magnesium 2.1 mg/dL (1.6-2.3); Potassium 4.1 mmol/L (3.4-5.0); Sodium 135 mmol/L (137-145)
[2023-07-05 08:26] LABS: Glucose Point of Care 120 mg/dl (65-105)
--- NOTE | 2023-07-05 08:57 | PM.IMPN ---
Progress Note: A&P Assessment and Plan (1) Anemia: Code(s): D64.9 - Anemia, unspecified Status: Chronic (2) Hypertension: Code(s): I10 - Essential (primary) hypertension Status: Chronic (3) End stage renal disease: Code(s): N18.6 - End stage renal disease Status: Chronic (4) Alcohol withdrawal: Code(s): F10.939 - Alcohol use, unspecified with withdrawal, unspecified Status: Acute (5) Chronic alcohol use: Code(s): F10.90 - Alcohol use, unspecified, uncomplicated Status: Acute (6) Pneumonia: Code(s): J18.9 - Pneumonia, unspecified organism Status: Acute (7) Bacteremia: Code(s): R78.81 - Bacteremia Status: Acute Plan 58M w/ PMH alcohol abuse, GERD, HLD, HTN, ESRD on dialysis MWF presents with shaking and chest soreness admitted on 07/02/23. # bacteremia - 07/02 blood cultures positive for staph aureus x2, appears to be MSSA. pending repeat on 07/04. - cont vancomcyin pharmacy to dose - patient does not appear toxic/septic. his AV fistula does not appear infected. will discuss with cardiology need for TTE vs YUN. # tremors - no LOC, possibly 2/2 to alcohol withdrawal although unlikely given his continued heavy and sustained use, possibly 2/2 to CAP/bacteremia. he also felt feverish on admission. resolved. # CAP - cont ceftriaxone and azithromycin. treat for 5 days - 12mm mass in left lung. repeat CT 1 month after treatment of pneumonia # alcohol abuse with possible alcohol withdrawal - d/c librium and use ativan prn. cont CIWA protocol. thiamine and folate daily. - counseled. pt wants to change from 2 liters of wine to 1 liter of wine per day but no less. care coordination consultation - PT/OT - thrombocytopenia, likely 2/2 to cirrhosis/alcohol. ctm. # elevated troponin - currently flat. cont to trend. chest pain atypical. EKG w/o acute ischemia # ESRD on dialysis MWF - on schedule. consult nephrology # HTN - controlled. CPM # GERD - CPM FEN: saline lock IV, renal diet GI prophylaxis: on home dosing DVT prophylaxis: lovenox Lines: pIV Code Status: Full Code Dispo: stable. More than 35 minutes spent on chart review, patient interaction and assessment and plan. Subjective Date/time seen: 07/05/23 08:57 Interval history: NAOE. pt complains of dry cough. he denies tremors, pain, fevers, chills. he feels very strong and demonstrates his ability to sit up in bed swiftly Review of Systems Review of Systems: All systems reviewed & are unremarkable except as noted in HPI and below (subjective) Exam Const: General: comfortable and no acute distress Eyes: Pupils: Equal, round and reactive pupils present Neck: Neck: supple Resp: Effort & Inspection: normal respiratory effort Auscultation: clear to auscultation bilaterally and rales (right lower lobe) Cardio: Rate: regular rate Rhythm: regular rhythm Heart sounds: no gallops, no murmurs and no rubs GI: GI Palp: Yes Soft to palpation and No Tenderness to palpation present (GI) Extrem: General: no edema Other: left UE AV fistula without tenderness to palpation, erythema, or induration Objective Data Vital Signs Vital Signs: Vital Signs - 24 hr 07/04/23 09:02 07/04/23 09:02 07/04/23 09:14 Temperature 98.8 F Pulse Rate 93 91 Pulse Rate [Monitor] Respiratory Rate 16 Blood Pressure 135/76 122/66 Pulse Oximetry 98 Oxygen Delivery Fraction of Inspired Oxygen 98 07/04/23 09:30 07/04/23 09:45 07/04/23 10:00 Temperature Pulse Rate 89 89 86 Pulse Rate [Monitor] Respiratory Rate Blood Pressure 128/77 130/73 118/64 Pulse Oximetry Oxygen Delivery Fraction of Inspired Oxygen 07/04/23 10:15 07/04/23 10:30 07/04/23 10:46 Temperature Pulse Rate 89 81 83 Pulse Rate [Monitor] Respiratory Rate Blood Pressure 111/63 106/51 L 90/44 L Pulse Oximetry Oxygen Delivery Fraction of Inspired Oxygen
--- NOTE | 2023-07-05 10:01 | P.PNNP_ITS ---
Progress Note: A&P Assessment and Plan (1) End stage renal disease: Code(s): N18.6 - End stage renal disease Status: Chronic Assessment and Plan: * HD today * continue M/W/F dialysis schedule while hospitalized * follow electrolytes, volume status, and clearance * follows with Dr. Hayes at [facility] (2) Bacteremia: Code(s): R78.81 - Bacteremia Status: Acute Assessment and Plan: * blood cultures with StapStaphylococcus aureus * follow repeat cultures * on antibiotic therapy (3) Pneumonia: Code(s): J18.9 - Pneumonia, unspecified organism Status: Acute Assessment and Plan: * as noted by admission imaging * culture data noted * on antibiotics (4) Hypertension: Code(s): I10 - Essential (primary) hypertension Status: Chronic Assessment and Plan: * reasonable control at this time * follow trend of hemodynamics (5) Anemia: Code(s): D64.9 - Anemia, unspecified Status: Chronic Assessment and Plan: * due to ESRD * Epogen with HD * follow trend of H/H Will continue to follow. Subjective Date/time seen: 07/05/23 10:01 Interval history: Follow-up for end stage renal disease on hemodialysis. Tolerated dialysis treatment yesterday without any issues or problems; no acute distress voiced at the time of my visit; no issues/events overnight or earlier this morning. Exam Narrative: General: WD/WN male in NAD Heart: normal S1 and S2; no rub Lungs: coarse breath sounds Abdomen: soft, nontender, nondistended, positive bowel sounds Extremities: no cyanosis or clubbing; no edema Skin: warm and intact Objective Data Vital Signs Vital Signs: Vital Signs Temp Pulse Pulse Resp BP Pulse Ox O2 Del Method 07/05/23 10:00 91 07/05/23 08:00 91 24 H 96 Room Air 07/05/23 08:00 91 132/77 07/05/23 08:00 91 07/05/23 08:00 98.7 F 91 24 H 132/77 96 07/05/23 06:00 89 07/05/23 04:00 95 Room Air 07/05/23 04:00 104 H 07/05/23 04:00 99.9 F H 78 24 H 134/58 L 95 07/05/23 02:00 115 H 07/05/23 00:00 98 Room Air 07/05/23 00:00 93 07/05/23 00:00 98.9 F 67 24 H 148/78 H 98 07/04/23 22:00 93 07/04/23 20:00 99 Room Air 07/04/23 20:00 78 07/04/23 20:21 97.7 F 76 24 H 116/72 100 07/04/23 20:00 99.0 F 105 H 24 H 108/55 L 99 07/04/23 18:00 91 07/04/23 16:00 94 07/04/23 16:00 Room Air 07/04/23 16:00 98 Intake/Output Intake/Output: Intake & Output 07/02/23 07/03/23 07/04/23 07/05/23 23:59 23:59 23:59 23:59 Intake Total 740 2613 440 2727 Output Total 1600 650 Balance 740 1989 -880 680 Meds/Results Medications: Active Medications Generic Name Dose Route Start Last Admin Trade Name Mae PRN Reason Stop Dose Admin Acetaminophen 650 mg 07/03/23 00:25 07/04/23 15:14 Acetaminophen 325 Mg Tablet PO 650 mg Q4H PRN Administration M
--- NOTE | 2023-07-05 10:01 | PM.PNNEP ---
Progress Note: A&P Assessment and Plan (1) End stage renal disease: Code(s): N18.6 - End stage renal disease Status: Chronic Assessment and Plan: HD today continue M/W/F dialysis schedule while hospitalized follow electrolytes, volume status, and clearance follows with Dr. Hayes at [facility] (2) Bacteremia: Code(s): R78.81 - Bacteremia Status: Acute Assessment and Plan: blood cultures with StapStaphylococcus aureus follow repeat cultures on antibiotic therapy (3) Pneumonia: Code(s): J18.9 - Pneumonia, unspecified organism Status: Acute Assessment and Plan: as noted by admission imaging culture data noted on antibiotics (4) Hypertension: Code(s): I10 - Essential (primary) hypertension Status: Chronic Assessment and Plan: reasonable control at this time follow trend of hemodynamics (5) Anemia: Code(s): D64.9 - Anemia, unspecified Status: Chronic Assessment and Plan: due to ESRD Epogen with HD follow trend of H/H Will continue to follow. Subjective Date/time seen: 07/05/23 10:01 Interval history: Follow-up for end stage renal disease on hemodialysis. Tolerated dialysis treatment yesterday without any issues or problems; no acute distress voiced at the time of my visit; no issues/events overnight or earlier this morning. Exam Narrative: General: WD/WN male in NAD Heart: normal S1 and S2; no rub Lungs: coarse breath sounds Abdomen: soft, nontender, nondistended, positive bowel sounds Extremities: no cyanosis or clubbing; no edema Skin: warm and intact Objective Data Vital Signs Vital Signs: Vital Signs Temp Pulse Pulse Resp BP Pulse Ox O2 Del Method 07/05/23 10:00 91 07/05/23 08:00 91 24 H 96 Room Air 07/05/23 08:00 91 132/77 07/05/23 08:00 91 07/05/23 08:00 98.7 F 91 24 H 132/77 96 07/05/23 06:00 89 07/05/23 04:00 95 Room Air 07/05/23 04:00 104 H 07/05/23 04:00 99.9 F H 78 24 H 134/58 L 95 07/05/23 02:00 115 H 07/05/23 00:00 98 Room Air 07/05/23 00:00 93 07/05/23 00:00 98.9 F 67 24 H 148/78 H 98 07/04/23 22:00 93 07/04/23 20:00 99 Room Air 07/04/23 20:00 78 07/04/23 20:21 97.7 F 76 24 H 116/72 100 07/04/23 20:00 99.0 F 105 H 24 H 108/55 L 99 07/04/23 18:00 91 07/04/23 16:00 94 07/04/23 16:00 Room Air 07/04/23 16:00 98 Intake/Output Intake/Output: Intake & Output 07/02/23 07/03/23 07/04/23 07/05/23 23:59 23:59 23:59 23:59 Intake Total 740 6761 980 8281 Output Total 1600 650 Balance 740 1989 680 Meds/Results Medications: Active Medications Generic Name Dose Route Start Last Admin Trade Name Freq PRN Reason Stop Dose Admin Acetaminophen 650 mg 07/03/23 00:25 07/04/23 15:14 Acetaminophen 325 Mg Tablet PO 650 mg Q4H PRN Administration Mild Pain (1-3) or Fever Al Hydrox/Mg Hydrox/Simethicone 30 ml 07/03/23 00:25 Mag Hydrox/Al Hydrox/Simeth 30 Ml Udc PO QID PRN Dyspepsia Allopurinol 300 mg 07/03/23 09:00 07/05/23 10:05 Allopurinol 300 Mg Tablet PO 300 mg DAILY SHERRIE Administration Atorvastatin Calcium 40 mg 07/03/23 09:00 07/05/23 10:05 Atorvastatin 40 Mg Tablet PO 40 mg DAILY SHERRIE Administration Azithromycin 500 mg 07/04/23 12:00 07/05/23 10:05 Azithromycin 250 Mg Tablet PO 07/06/23 09:01 500 mg DAILY SHERRIE Administration Clonidine HCl 0.2 mg 07/03/23 09:00 07/05/23 10:05 Clonidine Hcl 0.2 Mg Tablet PO 0.2 mg BID SHERRIE Administration Enoxaparin Sodium 30 mg 07/03/23 09:00 07/05/23 10:04 Enoxaparin 30 Mg/0.3 Ml Syringe SUB-Q 30 mg DAILY SHERRIE Administration Ergocalciferol 50,000 units 07/07/23 09:00 Ergocalciferol 50,000 Units Capsule PO W
[2023-07-05] MEDS: ENOXAPARIN 30 MG/0.3 ML SYRINGE SUB-Q (10:04)
[2023-07-05] MEDS: THIAMINE HCL 200 MG/2 ML VIAL 100 MG IV PUSH (10:04)
[2023-07-05] MEDS: cloNIDine HCL 0.2 MG TABLET PO ×2 (10:05→21:22)
[2023-07-05] MEDS: SODIUM BICARBONATE TAB 650 MG TABLET PO ×2 (10:05→21:21)
[2023-07-05] MEDS: FOLIC ACID 1 MG TABLET PO (10:05)
[2023-07-05] MEDS: allopurinoL 300 MG TABLET PO (10:05)
[2023-07-05] MEDS: PANTOPRAZOLE 40 MG TABLET PO (10:05)
[2023-07-05] MEDS: ATORVASTATIN 40 MG TABLET PO (10:05)
[2023-07-05] MEDS: AZITHROMYCIN 250 MG TABLET 500 MG PO (10:05)
[2023-07-05 11:53] LABS: Glucose Point of Care 111 mg/dl (65-105)
[2023-07-05 20:27] LABS: Glucose Point of Care 118 mg/dl (65-105)
[2023-07-06] VITALS (14 sets, daily range): BP systolic 124–166; BP diastolic 62–89; PULSE 76–91; RESP 16–24; TEMP 36.3–36.9; O2SAT 95–100
[2023-07-06 05:21] LABS: Alanine Aminotransferase 56 U/L (6-50); Albumin Level 3.3 g/dL (3.5-5.1); Alkaline Phosphatase 103 U/L (38-126); Anion Gap 12 mmol/L (8-16); Aspartate Amino Transferase 97 U/L (17-59); Bilirubin,Total 0.6 mg/dL (0.2-1.3); Blood Urea Nitrogen 66 mg/dL (9-20); Calcium 8.8 mg/dL (8.4-10.2); Carbon Dioxide 24 mmol/L (22-30); Chloride 98 mmol/L (98-107); Estimated CRCL calculation 10 ml/min; Estimated Glomerular Filt Rate 8; Glucose 112 mg/dL (65-110); Magnesium 2.3 mg/dL (1.6-2.3); Potassium 4.1 mmol/L (3.4-5.0); Sodium 134 mmol/L (137-145)
[2023-07-06 05:34] LABS: Procalcitonin 37.9 ng/mL
[2023-07-06 06:53] LABS: Basophils Percent Auto 0.4 % (0.2-1.2); Eosinophils Absolute Auto 0.1 K/mm3 (0-0.3); Eosinophils Percent Auto 1.4 % (0-4.4); Hematocrit 26.4 % (42.0-52.0); Hemoglobin 8.8 g/dL (14.0-18.0); Immature Granulocyte Absolute 0.09 K/mm3 (0.00-0.031); Immature Granulocyte Percent A 1.2 % (0-0.5); Lymphocytes Absolute Auto 1.28 K/mm3 (0.9-3.2); Lymphocytes Percent Auto 16.4 % (18.3-44.2); Mean Corpuscular HGB Conc 33.3 g/dl (32-36); Mean Corpuscular Hemoglobin 33.3 pg (26-34); Mean Platelet Volume 10.6 fl (7.4-10.4); Monocytes Absolute Auto 1.1 K/mm3 (0.1-0.6); Monocytes Percent Auto 14.6 % (2.6-8.5); Neutrophils Absolute Auto 5.2 K/mm3 (1.3-6.7); Platelet Count Result 183 k/mm3 (150-375); Red Blood Count 2.64 M/mm3 (4.6-6.20); Red Cell Distribution Width 17.1 % (11.5-14.5); White Blood Count 7.8 K/mm3 (4.5-10.0)
[2023-07-06 08:07] LABS: Glucose Point of Care 123 mg/dl (65-105)
[2023-07-06] MEDS: allopurinoL 300 MG TABLET PO (09:16)
[2023-07-06] MEDS: AZITHROMYCIN 250 MG TABLET 500 MG PO (09:16)
[2023-07-06] MEDS: ATORVASTATIN 40 MG TABLET PO (09:16)
[2023-07-06] MEDS: PANTOPRAZOLE 40 MG TABLET PO (09:16)
[2023-07-06] MEDS: cloNIDine HCL 0.2 MG TABLET PO ×2 (09:17→17:23)
[2023-07-06] MEDS: ENOXAPARIN 30 MG/0.3 ML SYRINGE SUB-Q (09:17)
[2023-07-06] MEDS: THIAMINE HCL 200 MG/2 ML VIAL 100 MG IV PUSH (09:17)
[2023-07-06] MEDS: SODIUM BICARBONATE TAB 650 MG TABLET PO ×2 (09:17→17:24)
[2023-07-06] MEDS: FOLIC ACID 1 MG TABLET PO (09:17)
--- NOTE | 2023-07-06 10:44 | P.PNNP_ITS ---
Progress Note: A&P Assessment and Plan (1) End stage renal disease: Code(s): N18.6 - End stage renal disease Status: Chronic Assessment and Plan: * HD tomorrow * continue M/W/F dialysis schedule while hospitalized * follow electrolytes, volume status, and clearance * follows with Dr. Hayes at [facility] (2) Bacteremia: Code(s): R78.81 - Bacteremia Status: Acute Assessment and Plan: * blood cultures with StapStaphylococcus aureus * blood cultures from 07/02 and 07/04 positive * noted plans for YUN * will also check ultrasound of AV access as well * on antibiotic therapy (3) Pneumonia: Code(s): J18.9 - Pneumonia, unspecified organism Status: Acute Assessment and Plan: * as noted by admission imaging * culture data noted * on antibiotics (4) Hypertension: Code(s): I10 - Essential (primary) hypertension Status: Chronic Assessment and Plan: * reasonable control at this time * follow trend of hemodynamics (5) Anemia: Code(s): D64.9 - Anemia, unspecified Status: Chronic Assessment and Plan: * due to ESRD * Epogen with HD * follow trend of H/H Will continue to follow. Subjective Date/time seen: 07/06/23 10:44 Interval history: Follow-up for end stage renal disease on hemodialysis. Occasional low grade fevers in the last 24 hours; otherwise feels fairly well; no apparent distress to report at this time; no other acute complaints noted; persistently positive blood culture noted. Exam Narrative: General: WD/WN male in NAD Heart: normal S1 and S2; no rub Lungs: coarse breath sounds Abdomen: soft, nontender, nondistended, positive bowel sounds Extremities: no cyanosis or clubbing; no edema Skin: warm and intact Objective Data Vital Signs Vital Signs: Vital Signs Temp Pulse Pulse Resp BP Pulse Ox O2 Del Method 07/06/23 10:30 98.2 F 77 24 H 130/75 98 07/06/23 08:00 98.2 F 82 16 166/86 H 100 07/06/23 06:00 80 07/06/23 04:00 97 Room Air 07/06/23 04:00 81 07/06/23 04:00 98.2 F 80 20 137/89 97 07/06/23 00:00 97 Room Air 07/06/23 02:00 79 07/06/23 00:00 91 07/05/23 23:33 100.3 F H 99 18 153/76 H 97 07/05/23 22:00 98 07/05/23 20:00 97 Room Air 07/05/23 20:00 60 165/68 H 07/05/23 20:00 98 07/05/23 20:00 100.1 F H 60 22 H 165/68 H 97 07/05/23 18:00 100 Intake/Output Intake/Output: Intake & Output 07/03/23 07/04/23 07/05/23 07/06/23 23:59 23:59 23:59 23:59 Intake Total 2169 489 3008 1030 Output Total 1600 650 400 Balance 1989 -830 970 630 Meds/Results Medications: Active Medications Generic Name Dose Route Start Last Admin Trade Name Freq PRN Reason Stop Dose Admin Acetaminophen 650 mg 07/03/23 00:25 07/04/23 15:14 Acetaminophen 325 Mg Tablet PO 650 mg Q4H PRN Administration Mild Pain (1-3) or Fever Al Hydrox/Mg Hydrox/Simethicone 30 ml 07/03/23 00:25 Mag Hydrox/A
--- NOTE | 2023-07-06 10:44 | PM.PNNEP ---
Progress Note: A&P Assessment and Plan (1) End stage renal disease: Code(s): N18.6 - End stage renal disease Status: Chronic Assessment and Plan: HD tomorrow continue M/W/F dialysis schedule while hospitalized follow electrolytes, volume status, and clearance follows with Dr. Hayes at [facility] (2) Bacteremia: Code(s): R78.81 - Bacteremia Status: Acute Assessment and Plan: blood cultures with StapStaphylococcus aureus blood cultures from 07/02 and 07/04 positive noted plans for YUN will also check ultrasound of AV access as well on antibiotic therapy (3) Pneumonia: Code(s): J18.9 - Pneumonia, unspecified organism Status: Acute Assessment and Plan: as noted by admission imaging culture data noted on antibiotics (4) Hypertension: Code(s): I10 - Essential (primary) hypertension Status: Chronic Assessment and Plan: reasonable control at this time follow trend of hemodynamics (5) Anemia: Code(s): D64.9 - Anemia, unspecified Status: Chronic Assessment and Plan: due to ESRD Epogen with HD follow trend of H/H Will continue to follow. Subjective Date/time seen: 07/06/23 10:44 Interval history: Follow-up for end stage renal disease on hemodialysis. Occasional low grade fevers in the last 24 hours; otherwise feels fairly well; no apparent distress to report at this time; no other acute complaints noted; persistently positive blood culture noted. Exam Narrative: General: WD/WN male in NAD Heart: normal S1 and S2; no rub Lungs: coarse breath sounds Abdomen: soft, nontender, nondistended, positive bowel sounds Extremities: no cyanosis or clubbing; no edema Skin: warm and intact Objective Data Vital Signs Vital Signs: Vital Signs Temp Pulse Pulse Resp BP Pulse Ox O2 Del Method 07/06/23 10:30 98.2 F 77 24 H 130/75 98 07/06/23 08:00 98.2 F 82 16 166/86 H 100 07/06/23 06:00 80 07/06/23 04:00 97 Room Air 07/06/23 04:00 81 07/06/23 04:00 98.2 F 80 20 137/89 97 07/06/23 00:00 97 Room Air 07/06/23 02:00 79 07/06/23 00:00 91 07/05/23 23:33 100.3 F H 99 18 153/76 H 97 07/05/23 22:00 98 07/05/23 20:00 97 Room Air 07/05/23 20:00 60 165/68 H 07/05/23 20:00 98 07/05/23 20:00 100.1 F H 60 22 H 165/68 H 97 07/05/23 18:00 100 Intake/Output Intake/Output: Intake & Output 07/03/23 07/04/23 07/05/23 07/06/23 23:59 23:59 23:59 23:59 Intake Total 7903 857 8215 1030 Output Total 1600 650 400 Balance 198983 970 630 Meds/Results Medications: Active Medications Generic Name Dose Route Start Last Admin Trade Name Freq PRN Reason Stop Dose Admin Acetaminophen 650 mg 07/03/23 00:25 07/04/23 15:14 Acetaminophen 325 Mg Tablet PO 650 mg Q4H PRN Administration Mild Pain (1-3) or Fever Al Hydrox/Mg Hydrox/Simethicone 30 ml 07/03/23 00:25 Mag Hydrox/Al Hydrox/Simeth 30 Ml Udc PO QID PRN Dyspepsia Allopurinol 300 mg 07/03/23 09:00 07/06/23 09:16 Allopurinol 300 Mg Tablet PO 300 mg DAILY SHERRIE Administration Atorvastatin Calcium 40 mg 07/03/23 09:00 07/06/23 09:16 Atorvastatin 40 Mg Tablet PO 40 mg DAILY SHERRIE Administration Clonidine HCl 0.2 mg 07/03/23 09:00 07/06/23 09:17 Clonidine Hcl 0.2 Mg Tablet PO 0.2 mg BID SHERRIE Administration Enoxaparin Sodium 30 mg 07/03/23 09:00 07/06/23 09:17 Enoxaparin 30 Mg/0.3 Ml Syringe SUB-Q 30 mg DAILY SHERRIE Administration Ergocalciferol 50,000 units 07/07/23 09:00 Ergocalciferol 50,000 Units Capsule PO WEEKLY SHERRIE Folic Acid 1 mg 07/03/23 09:00 07/06/23 09:17 Folic Acid 1 Mg Tablet PO 1 mg DAILY SHERRIE Administration Ceftriaxone Sodium 1 gm in 50 mls @ 100 mls/hr 07/03/23 14:00 07/06/23 13:56
--- NOTE | 2023-07-06 11:08 | PM.IMPN ---
Progress Note: A&P Assessment and Plan (1) Bacteremia: Code(s): R78.81 - Bacteremia Status: Acute (2) End stage renal disease: Code(s): N18.6 - End stage renal disease Status: Chronic (3) Pneumonia: Code(s): J18.9 - Pneumonia, unspecified organism Status: Acute (4) Alcohol withdrawal: Code(s): F10.939 - Alcohol use, unspecified with withdrawal, unspecified Status: Acute Plan 58M w/ PMH alcohol abuse, GERD, HLD, HTN, ESRD on dialysis MWF presents with shaking and chest soreness admitted on 07/02/23. # bacteremia - 07/02 blood cultures positive for staph aureus x2, appears to be MSSA. Repeat blood cultures on July 04 positive for Gram-positive cocci. Persistent bacteremia. Will need YUN. NPO at midnight. Repeat blood cultures today. - cont vancomcyin pharmacy to dose - patient does not appear toxic/septic. his AV fistula does not appear infected. Pending left upper extremity ultrasound. # tremors - no LOC, possibly 2/2 to alcohol withdrawal although unlikely given his continued heavy and sustained use, possibly 2/2 to CAP/bacteremia. he also felt feverish on admission. resolved. # CAP - cont ceftriaxone and azithromycin. treat for 5 days - 12mm mass in left lung. repeat CT 1 month after treatment of pneumonia # alcohol abuse with possible alcohol withdrawal - d/c librium and use ativan prn. cont CIWA protocol. thiamine and folate daily. - counseled. pt wants to change from 2 liters of wine to 1 liter of wine per day but no less. care coordination consultation - PT/OT - thrombocytopenia, likely 2/2 to cirrhosis/alcohol. ctm. -transaminitis improving likely secondary to alcohol. # elevated troponin - currently flat. cont to trend. chest pain atypical. EKG w/o acute ischemia # ESRD on dialysis MWF - on schedule. consult nephrology # HTN - controlled. CPM # GERD - CPM FEN: saline lock IV, renal diet GI prophylaxis: on home dosing DVT prophylaxis: lovenox Lines: pIV Code Status: Full Code Dispo: stable. More than 35 minutes spent on chart review, patient interaction and assessment and plan. Subjective Date/time seen: 07/06/23 11:08 Interval history: No acute overnight events. He reports the same today as usual, no symptoms. He does have the same question every day, when is he going home. I let him know we need to clear the bacteremia. Review of Systems Review of Systems: All systems reviewed & are unremarkable except as noted in HPI and below (Subjective) Exam Const: General: comfortable and no acute distress Other: Alert and oriented x3 Eyes: Pupils: Equal, round and reactive pupils present Neck: Neck: supple Resp: Effort & Inspection: normal respiratory effort Auscultation: clear to auscultation bilaterally, no crackles, no rales and no rhonchi Cardio: Rate: regular rate Rhythm: regular rhythm Heart sounds: no gallops, no murmurs and no rubs GI: GI Palp: Yes Soft to palpation and No Tenderness to palpation present (GI) Extrem: General: no edema Other: AV fistula left upper extremity no tenderness to palpation. Objective Data Vital Signs Vital Signs: Vital Signs - 24 hr 07/05/23 11:36 07/05/23 12:00 07/05/23 12:00 Temperature 98.6 F Pulse Rate 90 91 Pulse Rate [Monitor] 91 Respiratory Rate 28 H Blood Pressure 146/79 H 146/79 H Pulse Oximetry 97 Oxygen Delivery Fraction of Inspired Oxygen 07/05/23 12:00 07/05/23 14:00 07/05/23 16:00 Temperature Pulse Rate 90 88 85 Pulse Rate [Monitor] Respiratory Rate 28 H Blood Pressure Pulse Oximetry 97 Oxygen Delivery Room Air Fraction of Inspired Oxygen 98 07/05/23 16:00 07/05/23 16:00 07/05/23 16:00 Temperature 98.8 F Pulse Rate 88 85 Pulse Rate [Monitor] 85 Respiratory Rate 28 H 24 H Blood Pressure 146/79 H 137/81 Pulse Oximetry 97 98 Oxygen Delivery Room Air Fraction of Inspired Oxygen 98 07/05/23 18:00
[2023-07-06 11:48] LABS: Glucose Point of Care 169 mg/dl (65-105)
[2023-07-06 16:01] LABS: Glucose Point of Care 124 mg/dl (65-105)
[2023-07-07] VITALS (23 sets, daily range): BP systolic 144–173; BP diastolic 73–101; PULSE 74–93; RESP 16–22; TEMP 36.7–37.1; O2SAT 96–100
[2023-07-07 05:24] LABS: Basophils Percent Auto 0.4 % (0.2-1.2); Eosinophils Absolute Auto 0.3 K/mm3 (0-0.3); Eosinophils Percent Auto 3.1 % (0-4.4); Hematocrit 30.1 % (42.0-52.0); Hemoglobin 9.4 g/dL (14.0-18.0); Immature Granulocyte Absolute 0.14 K/mm3 (0.00-0.031); Immature Granulocyte Percent A 1.7 % (0-0.5); Lymphocytes Absolute Auto 1.63 K/mm3 (0.9-3.2); Mean Corpuscular HGB Conc 31.2 g/dl (32-36); Mean Corpuscular Hemoglobin 32.5 pg (26-34); Mean Corpuscular Volume 104.2 fl (80-100); Mean Platelet Volume 11.1 fl (7.4-10.4); Neutrophils Absolute Auto 5.1 K/mm3 (1.3-6.7); Neutrophils Percent Auto 62.8 % (45.5-73.1); Platelet Count Result 243 k/mm3 (150-375); Red Blood Count 2.89 M/mm3 (4.6-6.20); Red Cell Distribution Width 17.2 % (11.5-14.5); White Blood Count 8.2 K/mm3 (4.5-10.0)
[2023-07-07 05:38] LABS: Alanine Aminotransferase 78 U/L (6-50); Albumin Level 3.8 g/dL (3.5-5.1); Alkaline Phosphatase 119 U/L (38-126); Anion Gap 10 mmol/L (8-16); Aspartate Amino Transferase 123 U/L (17-59); Bilirubin,Total 0.8 mg/dL (0.2-1.3); Blood Urea Nitrogen 83 mg/dL (9-20); Calcium 9.5 mg/dL (8.4-10.2); Carbon Dioxide 29 mmol/L (22-30); Chloride 97 mmol/L (98-107); Estimated CRCL calculation 9 ml/min; Estimated Glomerular Filt Rate 8; Glucose 117 mg/dL (65-110); Magnesium 2.2 mg/dL (1.6-2.3); Potassium 4.8 mmol/L (3.4-5.0); Sodium 136 mmol/L (137-145)
[2023-07-07 05:43] LABS: Vancomycin Random 10.2 ug/mL (10-20)
[2023-07-07 05:54] LABS: Procalcitonin 24.3 ng/mL
--- NOTE | 2023-07-07 09:27 | PM.IMPN ---
Progress Note: A&P Assessment and Plan (1) Bacteremia: Code(s): R78.81 - Bacteremia Status: Acute (2) Anemia: Code(s): D64.9 - Anemia, unspecified Status: Chronic (3) Hypertension: Code(s): I10 - Essential (primary) hypertension Status: Chronic (4) End stage renal disease: Code(s): N18.6 - End stage renal disease Status: Chronic (5) Alcohol withdrawal: Code(s): F10.939 - Alcohol use, unspecified with withdrawal, unspecified Status: Acute (6) Abnormal CT of the chest: Code(s): R93.89 - Abnormal findings on diagnostic imaging of other specified body structures Status: Acute (7) Elevated troponin: Code(s): R79.89 - Other specified abnormal findings of blood chemistry Status: Acute (8) Chronic alcohol use: Code(s): F10.90 - Alcohol use, unspecified, uncomplicated Status: Acute (9) Pneumonia: Code(s): J18.9 - Pneumonia, unspecified organism Status: Acute Plan 58M w/ PMH alcohol abuse, GERD, HLD, HTN, ESRD on dialysis MWF presents with shaking and chest soreness admitted on 07/02/23. # bacteremia - 07/02 MSSA x2 - 07/04 one bottle growing gram positive cocci - 07/06 NGTD - Will need YUN for persistent SAB.? NPO. cardiology consulted on 07/07. - cont vancomcyin pharmacy to dose - 07/07 d/c ceftriaxone and start cefazolin for double MSSA coverage - patient does not appear toxic/septic. his AV fistula does not appear infected, LUE negative # tremors - this is his presenting complaint. resolved. Was either due to alcohol withdrawal or his bacteremia # CAP - received 5 days of ceftriaxone and azithromycin. Now on vancomycin and cefazolin for bacteremia - 12mm mass in left lung. Pneumonia? Repeat CT 1 month after treatment of pneumonia # alcohol abuse with possible alcohol withdrawal - was questionable on admission. He had presenting complaint of tremors. At some point he was sensitive to light. CIWA was only as high as 6. Librium has since been DC. Continue CIWA - counseled. pt wants to change from 2 liters of wine to 1 liter of wine per day but no less. care coordination consultation - PT/OT - thrombocytopenia, likely 2/2 to cirrhosis/alcohol. - transaminitis likely secondary to alcohol use. continue to monitor # elevated troponin - flat. cont to trend. chest pain on presentation described as atypical. Has since resolved. EKG w/o acute ischemia # ESRD on dialysis MWF - on schedule. consult nephrology - seen in dialysis suite on 07/07/23 # HTN - controlled. CPM # GERD - CPM FEN: saline lock IV, NPO then renal diet GI prophylaxis: on home dosing DVT prophylaxis: lovenox Lines: pIV Code Status: Full Code Dispo: stable. More than 35 minutes spent on chart review, patient interaction and assessment and plan. Subjective Date/time seen: 07/07/23 09:27 Interval history: NAOE. denies anything, as he does everyday. denies fever Review of Systems Review of Systems: All systems reviewed & are unremarkable except as noted in HPI and below (Subjective) Exam Const: General: comfortable and no acute distress Other: A&O x3 Resp: Effort & Inspection: normal respiratory effort Auscultation: clear to auscultation bilaterally Cardio: Rate: regular rate Rhythm: regular rhythm Heart sounds: no murmurs GI: GI Palp: Yes Soft to palpation and No Tenderness to palpation present (GI) Extrem: General: no edema Objective Data Vital Signs Vital Signs: Vital Signs - 24 hr 07/06/23 12:00 07/06/23 10:00 07/06/23 12:00 Temperature 98.2 F Pulse Rate 77 76 79 Respiratory Rate 24 H Blood Pressure 130/75 Pulse Oximetry 98 Oxygen Delivery 07/06/23 15:59 07/06/23 14:00 07/06/23 16:00 Temperature 98.5 F Pulse Rate 78 82 84 Respiratory Rate 24 H Blood Pressure 133/75 Pulse Oximetry 100 Oxygen Delivery 07/06/23 18:00 07/06/23 20:38 07/06/23 20:00 Temperature 97.3
--- NOTE | 2023-07-07 10:10 | P.PNNP_ITS ---
Progress Note: A&P Assessment and Plan (1) End stage renal disease: Code(s): N18.6 - End stage renal disease Status: Chronic Assessment and Plan: * HD tomorrow * continue M/W/F dialysis schedule while hospitalized * follow electrolytes, volume status, and clearance * follows with Dr. Hayes at [facility] (2) Bacteremia: Code(s): R78.81 - Bacteremia Status: Acute Assessment and Plan: * blood cultures with Methicillin Sensitive Staphylococcus aureus (MSSA) * blood cultures from 07/02 and 07/04 positive * noted plans for YUN * will also check ultrasound of AV access as well * on antibiotic therapy (3) Pneumonia: Code(s): J18.9 - Pneumonia, unspecified organism Status: Acute Assessment and Plan: * as noted by admission imaging * culture data noted * completed antibiotics for this issue (4) Hypertension: Code(s): I10 - Essential (primary) hypertension Status: Chronic Assessment and Plan: * reasonable control at this time * follow trend of hemodynamics (5) Anemia: Code(s): D64.9 - Anemia, unspecified Status: Chronic Assessment and Plan: * due to ESRD * Epogen with HD * follow trend of H/H Will continue to follow. Subjective Date/time seen: 07/07/23 10:10 Interval history: Follow-up for end stage renal disease on hemodialysis. Tolerating hemodialysis treatment at the time of my visit (seen on on HD at 10:00AM); no apparent distress noted; no issues overnight or earlier today; YUN planned due to persistently positive blood cultures. Exam Narrative: General: WD/WN male in NAD Heart: normal S1 and S2; no rub Lungs: clear breath sounds Abdomen: soft, nontender, nondistended, positive bowel sounds Extremities: no cyanosis or clubbing; no edema Skin: no rash Objective Data Vital Signs Vital Signs: Vital Signs Temp Pulse Resp BP Pulse Ox O2 Del Method 07/07/23 10:00 74 162/94 H 07/07/23 09:40 75 152/92 H 07/07/23 09:20 75 164/95 H 07/07/23 09:00 98.4 F 77 16 159/88 H 07/07/23 09:11 76 147/93 H 07/07/23 08:00 98.4 F 75 18 156/86 H 96 07/07/23 06:00 74 07/07/23 04:00 98.2 F 74 18 146/73 H 100 07/07/23 04:00 100 Room Air 07/07/23 04:00 76 07/07/23 02:00 78 07/07/23 00:00 100 Room Air 07/07/23 00:00 78 07/07/23 00:00 98.6 F 81 22 H 144/89 H 100 07/06/23 22:00 79 07/06/23 20:00 95 Room Air 07/06/23 20:00 78 07/06/23 20:38 97.3 F L 82 19 124/62 95 07/06/23 18:00 80 07/06/23 16:00 84 07/06/23 14:00 82 07/06/23 15:59 98.5 F 78 24 H 133/75 100 07/06/23 12:00 79 07/06/23 12:00 98.2 F 77 24 H 130/75 98 Intake/Output Intake/Output: Intake & Output 07/04/23 07/05/23 07/06/23 07/07/23 23:59 23:59 23:59 23:59 Intake Total 770 1620 1320 Output Total 1600 650 400 Balance -830 970 920 Meds/Results Medications: Active Medications Generic Na
--- NOTE | 2023-07-07 10:10 | PM.PNNEP ---
Progress Note: A&P Assessment and Plan (1) End stage renal disease: Code(s): N18.6 - End stage renal disease Status: Chronic Assessment and Plan: HD tomorrow continue M/W/F dialysis schedule while hospitalized follow electrolytes, volume status, and clearance follows with Dr. Hayes at [facility] (2) Bacteremia: Code(s): R78.81 - Bacteremia Status: Acute Assessment and Plan: blood cultures with Methicillin Sensitive Staphylococcus aureus (MSSA) blood cultures from 07/02 and 07/04 positive noted plans for YUN will also check ultrasound of AV access as well on antibiotic therapy (3) Pneumonia: Code(s): J18.9 - Pneumonia, unspecified organism Status: Acute Assessment and Plan: as noted by admission imaging culture data noted completed antibiotics for this issue (4) Hypertension: Code(s): I10 - Essential (primary) hypertension Status: Chronic Assessment and Plan: reasonable control at this time follow trend of hemodynamics (5) Anemia: Code(s): D64.9 - Anemia, unspecified Status: Chronic Assessment and Plan: due to ESRD Epogen with HD follow trend of H/H Will continue to follow. Subjective Date/time seen: 07/07/23 10:10 Interval history: Follow-up for end stage renal disease on hemodialysis. Tolerating hemodialysis treatment at the time of my visit (seen on on HD at 10:00AM); no apparent distress noted; no issues overnight or earlier today; YUN planned due to persistently positive blood cultures. Exam Narrative: General: WD/WN male in NAD Heart: normal S1 and S2; no rub Lungs: clear breath sounds Abdomen: soft, nontender, nondistended, positive bowel sounds Extremities: no cyanosis or clubbing; no edema Skin: no rash Objective Data Vital Signs Vital Signs: Vital Signs Temp Pulse Resp BP Pulse Ox O2 Del Method 07/07/23 10:00 74 162/94 H 07/07/23 09:40 75 152/92 H 07/07/23 09:20 75 164/95 H 07/07/23 09:00 98.4 F 77 16 159/88 H 07/07/23 09:11 76 147/93 H 07/07/23 08:00 98.4 F 75 18 156/86 H 96 07/07/23 06:00 74 07/07/23 04:00 98.2 F 74 18 146/73 H 100 07/07/23 04:00 100 Room Air 07/07/23 04:00 76 07/07/23 02:00 78 07/07/23 00:00 100 Room Air 07/07/23 00:00 78 07/07/23 00:00 98.6 F 81 22 H 144/89 H 100 07/06/23 22:00 79 07/06/23 20:00 95 Room Air 07/06/23 20:00 78 07/06/23 20:38 97.3 F L 82 19 124/62 95 07/06/23 18:00 80 07/06/23 16:00 84 07/06/23 14:00 82 07/06/23 15:59 98.5 F 78 24 H 133/75 100 07/06/23 12:00 79 07/06/23 12:00 98.2 F 77 24 H 130/75 98 Intake/Output Intake/Output: Intake & Output 07/04/23 07/05/23 07/06/23 07/07/23 23:59 23:59 23:59 23:59 Intake Total 770 1620 1320 Output Total 1600 650 400 Balance -830 970 920 Meds/Results Medications: Active Medications Generic Name Dose Route Start Last Admin Trade Name Mae PRN Reason Stop Dose Admin Acetaminophen 650 mg 07/03/23 00:25 07/04/23 15:14 Acetaminophen 325 Mg Tablet PO 650 mg Q4H PRN Administration Mild Pain (1-3) or Fever Al Hydrox/Mg Hydrox/Simethicone 30 ml 07/03/23 00:25 Mag Hydrox/Al Hydrox/Simeth 30 Ml Udc PO QID PRN Dyspepsia Allopurinol 300 mg 07/03/23 09:00 07/06/23 09:16 Allopurinol 300 Mg Tablet PO 300 mg DAILY SHERRIE Administration Atorvastatin Calcium 40 mg 07/03/23 09:00 07/06/23 09:16 Atorvastatin 40 Mg Tablet PO 40 mg DAILY SHERRIE Administration Clonidine HCl 0.2 mg 07/03/23 09:00 07/06/23 17:23 Clonidine Hcl 0.2 Mg Tablet PO 0.2 mg BID SHERRIE Administration Enoxaparin Sodium 30 mg 07/03/23 09:00 07/06/23 09:17 Enoxaparin 30 Mg/0.3 Ml Syringe SUB-Q 30 mg DAILY SHERRIE Administration Epoetin Huan-
[2023-07-07] MEDS: EPOETIN ALFA-EPBX 10,000 UNITS/ML VIAL 10000 UNITS IV PUSH (11:22)
--- NOTE | 2023-07-07 13:03 | PM.CNCAR ---
Assessment and Plan Assessment and plan (1) Bacteremia: Code(s): R78.81 - Bacteremia Status: Acute Assessment and Plan: Persistent methicillin sensitive Staph aureus despite IV antibiotics initially treated with ceftriaxone azithromycin for presumed pneumonia.. Patient is not appearing septic and is currently afebrile. He is hemodynamically stable and has no other specific complaints. No clear source has been identified other than possible pneumonia. His left upper extremity AV fistula does not clinically appear infected. He has poor dentition but denies active abscess, recent dental work, or pain. Given patient's history of hemodialysis and persistent bacteremia transesophageal echocardiogram warranted to exclude endocarditis. Patient had 2D echocardiogram x2 without significant valve pathology or evidence for vegetation. However, given his risk factors transesophageal echocardiogram has a higher sensitivity and specificity to exclude endocarditis. Discussed risks versus benefits in this regard. All questions answered to his satisfaction. Patient verbalized understanding and agreed to proceed with plan of care. Explained the importance of his clinical response to therapy and potential need for repeat imaging even if transesophageal echocardiogram is unremarkable at this juncture. Recommendation to follow after review. NPO after midnight tonight anticipation for transesophageal echocardiogram with the assist of Anesthesiology given history of alcohol abuse to ensure adequate sedation and comfort for the patient. Continue to monitor blood sugars. He remains on IV antibiotics as above per hospitalist service. With regard to transesophageal echogram discussed risks versus benefits. Patient agreed to proceed. All questions answered to his satisfaction. Plan to proceed with the assistance of Anesthesiology tomorrow as patient requested not to proceed today and Anesthesiology was not able to accommodate this in any event. (2) Elevated troponin: Code(s): R79.89 - Other specified abnormal findings of blood chemistry Status: Acute Assessment and Plan: Mild troponin elevation flat with somewhat atypical chest pain which has resolved with radiographic evidence of pneumonia. This is not consistent with an acute myocardial infarction and or plaque rupture but more likely type 2. If significant vegetation is identified transesophageal echocardiogram this may also be culprit yet clinically this is less likely. Continue DVT prophylaxis. Continue atorvastatin 40 mg daily. (3) Pneumonia: Code(s): J18.9 - Pneumonia, unspecified organism Status: Acute Assessment and Plan: Radiographic evidence of a consolidation versus mass/nodule left lower lobe. Other pulmonary nodules noted on CT with recommended follow-up. Patient is currently being treated for clinical pneumonia with IV antibiotics as above initially with azithromycin and ceftriaxone now vancomycin and cefazolin due to bacteremia. If recurrent fever, persistent bacteremia further recommendation follow based on results of transesophageal echocardiogram. (4) Hypertension: Code(s): I10 - Essential (primary) hypertension Status: Chronic Assessment and Plan: Patient is hemodynamically stable yet remains hypertensive. Continue clonidine 0.2 mg twice daily. Uptitration and/or addition of additional antihypertensive therapy clinically warranted. Avoid hypotension. (5) End-stage renal disease on hemodialysis: Code(s): N18.6 - End stage renal disease; Z99.2 - Dependence on renal dialysis Status: Acute Assessment and Plan: Continue hemodialysis as scheduled per Nephrology. Appreciate their recommendations and involvement. Hemodialysis completed today without complication. Monitor electrolytes closely. (6) Anemia: Code(s): D64.9 - Anemia, unspecified Status: Chronic Assessment and Plan: Stable, ane
--- NOTE | 2023-07-07 13:04 | PCPTNOTE ---
The patient treatment was not able to be completed due to patient out of room for dialysis. Will plan to continue treatment per plan of care.
[2023-07-07] MEDS: cloNIDine HCL 0.2 MG TABLET PO ×2 (13:45→17:20)
[2023-07-07] MEDS: ATORVASTATIN 40 MG TABLET PO (13:45)
[2023-07-07] MEDS: allopurinoL 300 MG TABLET PO (13:45)
[2023-07-07] MEDS: FOLIC ACID 1 MG TABLET PO (13:45)
[2023-07-07] MEDS: ENOXAPARIN 30 MG/0.3 ML SYRINGE SUB-Q (13:45)
[2023-07-07] MEDS: ERGOCALCIFEROL 50,000 UNITS CAPSULE 50000 UNITS PO (13:45)
[2023-07-07] MEDS: THIAMINE HCL 200 MG/2 ML VIAL 100 MG IV PUSH (13:45)
[2023-07-07] MEDS: SODIUM BICARBONATE TAB 650 MG TABLET PO ×2 (13:45→17:20)
[2023-07-07] MEDS: PANTOPRAZOLE 40 MG TABLET PO (13:45)
[2023-07-07] MEDS: ceFAZolin 1 GM/NS 50 ML 1 GM/50 ML BAG IVPB (14:40)
[2023-07-07] MEDS: VANCOMYCIN 1,000 MG/NS 250 ML 1,000 MG/250 ML BAG 250 MG IVPB (17:23)
[2023-07-08] VITALS (17 sets, daily range): BP systolic 116–164; BP diastolic 66–90; PULSE 75–95; RESP 18–32; TEMP 36.8–37.7; O2SAT 94–100
[2023-07-08 08:54] LABS: Basophils Absolute Auto 0.1 K/mm3 (0.0-0.1); Basophils Percent Auto 0.5 % (0.2-1.2); Eosinophils Absolute Auto 0.2 K/mm3 (0-0.3); Eosinophils Percent Auto 2.5 % (0-4.4); Hematocrit 30.6 % (42.0-52.0); Hemoglobin 9.8 g/dL (14.0-18.0); Immature Granulocyte Absolute 0.23 K/mm3 (0.00-0.031); Immature Granulocyte Percent A 2.4 % (0-0.5); Lymphocytes Absolute Auto 1.97 K/mm3 (0.9-3.2); Lymphocytes Percent Auto 20.1 % (18.3-44.2); Mean Corpuscular Hemoglobin 33.4 pg (26-34); Mean Corpuscular Volume 104.4 fl (80-100); Mean Platelet Volume 10.6 fl (7.4-10.4); Monocytes Percent Auto 10.4 % (2.6-8.5); Neutrophils Absolute Auto 6.3 K/mm3 (1.3-6.7); Neutrophils Percent Auto 64.1 % (45.5-73.1); Platelet Count Result 317 k/mm3 (150-375); Red Blood Count 2.93 M/mm3 (4.6-6.20); Red Cell Distribution Width 17.3 % (11.5-14.5); White Blood Count 9.8 K/mm3 (4.5-10.0)
[2023-07-08 09:03] LABS: Alanine Aminotransferase 58 U/L (6-50); Albumin Level 4.1 g/dL (3.5-5.1); Alkaline Phosphatase 121 U/L (38-126); Anion Gap 12 mmol/L (8-16); Aspartate Amino Transferase 79 U/L (17-59); Bilirubin,Total 0.7 mg/dL (0.2-1.3); Blood Urea Nitrogen 51 mg/dL (9-20); Calcium 9.9 mg/dL (8.4-10.2); Carbon Dioxide 27 mmol/L (22-30); Chloride 99 mmol/L (98-107); Estimated CRCL calculation 11 ml/min; Estimated Glomerular Filt Rate 9; Glucose 111 mg/dL (65-110); Magnesium 2.1 mg/dL (1.6-2.3); Potassium 4.1 mmol/L (3.4-5.0); Sodium 138 mmol/L (137-145)
[2023-07-08] MEDS: allopurinoL 300 MG TABLET PO (09:42)
[2023-07-08] MEDS: ATORVASTATIN 40 MG TABLET PO (09:42)
[2023-07-08] MEDS: SODIUM BICARBONATE TAB 650 MG TABLET PO ×2 (09:43→18:22)
[2023-07-08] MEDS: ENOXAPARIN 30 MG/0.3 ML SYRINGE SUB-Q (09:43)
[2023-07-08] MEDS: ceFAZolin 1 GM/NS 50 ML 1 GM/50 ML BAG IVPB (09:43)
[2023-07-08] MEDS: FOLIC ACID 1 MG TABLET PO (09:43)
[2023-07-08] MEDS: PANTOPRAZOLE 40 MG TABLET PO (09:43)
[2023-07-08] MEDS: cloNIDine HCL 0.2 MG TABLET PO ×2 (09:43→18:22)
[2023-07-08] MEDS: THIAMINE HCL 200 MG/2 ML VIAL 100 MG IV PUSH (09:44)
--- NOTE | 2023-07-08 09:55 | PM.PNNEP ---
Progress Note: A&P Assessment and Plan (1) End stage renal disease: Code(s): N18.6 - End stage renal disease Status: Chronic Assessment and Plan: HD tomorrow continue M/W/F dialysis schedule while hospitalized follow electrolytes, volume status, and clearance follows with Dr. Hayes at [facility] (2) Bacteremia: Code(s): R78.81 - Bacteremia Status: Acute Assessment and Plan: blood cultures with Methicillin Sensitive Staphylococcus aureus (MSSA) blood cultures from 07/02 and 07/04 positive noted plans for YUN today ultrasound of AV access negative on antibiotic therapy (3) Pneumonia: Code(s): J18.9 - Pneumonia, unspecified organism Status: Acute Assessment and Plan: as noted by admission imaging culture data noted completed antibiotics for this issue (4) Hypertension: Code(s): I10 - Essential (primary) hypertension Status: Chronic Assessment and Plan: reasonable control at this time follow trend of hemodynamics (5) Anemia: Code(s): D64.9 - Anemia, unspecified Status: Chronic Assessment and Plan: due to ESRD Epogen with HD follow trend of H/H Will continue to follow. Subjective Date/time seen: 07/08/23 09:55 Interval history: Follow-up for end stage renal disease on hemodialysis. Tolerated hemodialysis treatment yesterday without any issue or problems; noted plans for YUN today for further evaluation of persistently positive blood cultures; no apparent distress voiced at the time of my visit. Exam Narrative: General: WD/WN male in NAD Heart: normal S1 and S2; no rub Lungs: clear breath sounds Abdomen: soft, nontender, nondistended, positive bowel sounds Extremities: no cyanosis or clubbing; no edema Skin: no nodules Objective Data Vital Signs Vital Signs: Vital Signs Temp Pulse Resp BP Pulse Ox O2 Del Method FiO2 07/08/23 07:34 98.4 F 77 18 150/87 H 98 07/08/23 06:00 77 07/08/23 04:00 79 07/08/23 02:00 81 07/08/23 00:00 83 07/07/23 22:00 77 07/08/23 00:00 98.4 F 82 18 128/66 98 07/07/23 20:00 87 18 96 Room Air 98 07/07/23 20:00 88 07/07/23 16:17 98.7 F 87 18 147/76 H 96 07/07/23 14:00 93 07/07/23 12:00 86 07/07/23 12:20 98.1 F 89 16 169/93 H 07/07/23 12:12 88 154/88 H 07/07/23 11:20 81 162/101 H 07/07/23 11:00 81 173/91 H 07/07/23 12:00 83 167/98 H 07/07/23 11:40 81 170/91 H Intake/Output Intake/Output: Intake & Output 07/05/23 07/06/23 07/07/23 07/08/23 23:59 23:59 23:59 23:59 Intake Total 1620 1320 490 Output Total 084 718 7769 Balance 970 920 -1710 Meds/Results Medications: Active Medications Generic Name Dose Route Start Last Admin Trade Name Freq PRN Reason Stop Dose Admin Acetaminophen 650 mg 07/03/23 00:25 07/04/23 15:14 Acetaminophen 325 Mg Tablet PO 650 mg Q4H PRN Administration Mild Pain (1-3) or Fever Al Hydrox/Mg Hydrox/Simethicone 30 ml 07/03/23 00:25 Mag Hydrox/Al Hydrox/Simeth 30 Ml Udc PO QID PRN Dyspepsia Allopurinol 300 mg 07/03/23 09:00 07/08/23 09:42 Allopurinol 300 Mg Tablet PO 300 mg DAILY SHERRIE Administration Atorvastatin Calcium 40 mg 07/03/23 09:00 07/08/23 09:42 Atorvastatin 40 Mg Tablet PO 40 mg DAILY SHERRIE Administration Clonidine HCl 0.2 mg 07/03/23 09:00 07/08/23 09:43 Clonidine Hcl 0.2 Mg Tablet PO 0.2 mg BID SHERRIE Administration Enoxaparin Sodium 30 mg 07/03/23 09:00 07/08/23 09:43 Enoxaparin 30 Mg/0.3 Ml Syringe SUB-Q 30 mg DAILY SHERRIE Administration Ergocalciferol 50,000 units 07/07/23 09:00 07/07/23 13:45 Ergocalciferol 50,000 Units Capsule PO 50,000 units WEEKLY SHERRIE Administration Folic Acid 1 mg 07/03/23 09:00 07/08/23 09:43 Folic Acid 1
--- NOTE | 2023-07-08 09:55 | P.PNNP_ITS ---
Progress Note: A&P Assessment and Plan (1) End stage renal disease: Code(s): N18.6 - End stage renal disease Status: Chronic Assessment and Plan: * HD tomorrow * continue M/W/F dialysis schedule while hospitalized * follow electrolytes, volume status, and clearance * follows with Dr. Hayes at [facility] (2) Bacteremia: Code(s): R78.81 - Bacteremia Status: Acute Assessment and Plan: * blood cultures with Methicillin Sensitive Staphylococcus aureus (MSSA) * blood cultures from 07/02 and 07/04 positive * noted plans for YUN today * ultrasound of AV access negative * on antibiotic therapy (3) Pneumonia: Code(s): J18.9 - Pneumonia, unspecified organism Status: Acute Assessment and Plan: * as noted by admission imaging * culture data noted * completed antibiotics for this issue (4) Hypertension: Code(s): I10 - Essential (primary) hypertension Status: Chronic Assessment and Plan: * reasonable control at this time * follow trend of hemodynamics (5) Anemia: Code(s): D64.9 - Anemia, unspecified Status: Chronic Assessment and Plan: * due to ESRD * Epogen with HD * follow trend of H/H Will continue to follow. Subjective Date/time seen: 07/08/23 09:55 Interval history: Follow-up for end stage renal disease on hemodialysis. Tolerated hemodialysis treatment yesterday without any issue or problems; noted plans for YUN today for further evaluation of persistently positive blood cultures; no apparent distress voiced at the time of my visit. Exam Narrative: General: WD/WN male in NAD Heart: normal S1 and S2; no rub Lungs: clear breath sounds Abdomen: soft, nontender, nondistended, positive bowel sounds Extremities: no cyanosis or clubbing; no edema Skin: no nodules Objective Data Vital Signs Vital Signs: Vital Signs Temp Pulse Resp BP Pulse Ox O2 Del Method FiO2 07/08/23 07:34 98.4 F 77 18 150/87 H 98 07/08/23 06:00 77 07/08/23 04:00 79 07/08/23 02:00 81 07/08/23 00:00 83 07/07/23 22:00 77 07/08/23 00:00 98.4 F 82 18 128/66 98 07/07/23 20:00 87 18 96 Room Air 98 07/07/23 20:00 88 07/07/23 16:17 98.7 F 87 18 147/76 H 96 07/07/23 14:00 93 07/07/23 12:00 86 07/07/23 12:20 98.1 F 89 16 169/93 H 07/07/23 12:12 88 154/88 H 07/07/23 11:20 81 162/101 H 07/07/23 11:00 81 173/91 H 07/07/23 12:00 83 167/98 H 07/07/23 11:40 81 170/91 H Intake/Output Intake/Output: Intake & Output 07/05/23 07/06/23 07/07/23 07/08/23 23:59 23:59 23:59 23:59 Intake Total 1620 1320 490 Output Total 899 209 0422 Balance 970 920 -1710 Meds/Results Medications: Active Medications Generic Name Dose Route Start Last Admin Trade Name Freq PRN Reason Stop Dose Admin Acetaminophen 650 mg 07/03/23 00:25 07/04/23 15:14 Acetaminophen 325 Mg Tablet PO 650 mg Q4H PRN Administration Mild Pain
--- NOTE | 2023-07-08 11:46 | PCPTNOTE ---
The patient treatment was not able to be completed due to patient out of room for YUN. Will plan to continue treatment per plan of care.
--- NOTE | 2023-07-08 11:54 | WPDANESEPPF ---
Anes - Initial Pre Proc Eval Procedure: Operation Date: 07/08/23 11:30 Proposed Procedures p Trans Esophageal Echo - Huan Love MD Date/Time: 07/08/23 11:54 Surgeon: Danika Durna MD Pre Op Diagnosis: chest pain,pneumonia Patient Data Age: 58 Gender: M Height: 1.83 m Weight: 91.3 kg Last Vital Signs Temp 36.9 C 07/08/23 07:34 Pulse 77 07/08/23 07:34 Resp 18 07/08/23 07:34 BP 150/87 H 07/08/23 07:34 Pulse Ox 98 07/08/23 07:34 O2 Del Method Room Air 07/07/23 20:00 FiO2 98 07/07/23 20:00 Allergies Allergy/AdvReac Type Severity Reaction Status Date / Time No Known Allergies Allergy Unverified 02/16/21 15:51 Home Medications Medication Instructions Recorded Confirmed Type allopurinol 300 mg tablet 300 mg PO DAILY 07/02/23 07/02/23 History atorvastatin 40 mg tablet 40 mg PO DAILY 07/02/23 07/02/23 History clonidine HCl 0.2 mg tablet 0.2 mg PO BID 07/02/23 07/02/23 History ergocalciferol (vitamin D2) 1,250 1,250 mcg PO DAILY 07/02/23 07/02/23 History mcg (50,000 unit) capsule pantoprazole 40 mg tablet,delayed 40 mg PO DAILY 07/02/23 07/02/23 History release sodium bicarbonate 650 mg tablet 650 mg PO BID 07/02/23 07/02/23 History Laboratory Tests 07/08/23 08:07 WBC 9.8 K/mm3 (4.5-10.0) RBC 2.93 L M/mm3 (4.6-6.20) Hgb 9.8 L g/dL (14.0-18.0) Hct 30.6 L % (42.0-52.0) MCV 104.4 H fl (80-100) MCH 33.4 pg (26-34) MCHC 32.0 g/dl (32-36) RDW 17.3 H % (11.5-14.5) Plt Count 317 k/mm3 (150-375) MPV 10.6 H fl (7.4-10.4) Immature Gran % (Auto) 2.4 H % (0-0.5) Neut % (Auto) 64.1 % (45.5-73.1) Lymph % (Auto) 20.1 % (18.3-44.2) [place] % (Auto) 10.4 H % (2.6-8.5) Eos % (Auto) 2.5 % (0-4.4) Baso % (Auto) 0.5 % (0.2-1.2) Lymph # (Auto) 1.97 K/mm3 (0.9-3.2) [place] # (Auto) 1.0 H K/mm3 (0.1-0.6) Eos # (Auto) 0.2 K/mm3 (0-0.3) Baso # (Auto) 0.1 K/mm3 (0.0-0.1) Abs Immat Gran (auto) 0.23 H K/mm3 (0.00-0.031) Absolute Neuts (auto) 6.3 K/mm3 (1.3-6.7) Absolute Nucleated RBC 0.0 K/mm3 (0.0-0.012) Nucleated RBC % 0.0 % (0.0-0.2) Sodium 138 mmol/L (137-145) Potassium 4.1 mmol/L (3.4-5.0) Chloride 99 mmol/L (98-107) Carbon Dioxide 27 mmol/L (22-30) Anion Gap 12 mmol/L (8-16) BUN 51 H D mg/dL (9-20) Creatinine 7.20 H mg/dL (0.7-1.3) Estim Creat Clear Calc 11 ml/min Estimated GFR 9 L (59 - ) Glucose 111 H mg/dL (65-110) Calcium 9.9 mg/dL (8.4-10.2) Magnesium 2.1 mg/dL (1.6-2.3) Total Bilirubin 0.7 mg/dL (0.2-1.3) AST 79 H U/L (17-59) ALT 58 H U/L (6-50) Alkaline Phosphatase 121 U/L (38-126) Total Protein 8.0 g/dL (6.3-8.2) Albumin 4.1 g/dL (3.5-5.1) Patient hx anesthesia problems: none Family hx anesthesia problems: none Results Review: All pre-operative results and documents have been reviewed as part of the pre-operative evaluation. [facility] Past Medical History Medical History Abnormal CT of the chest Chronic alcohol use End stage renal disease GERD (gastroesophageal reflux disease) Hyperlipidemia Hypertension Surgical History Surgical History Hemodialysis access, AV graft Social History Social History Smoking status: Never smoker Second hand tobacco smoke exposure: No Additional smoking assessment comments: Daily marijuana smoker from pipe Alcohol intake: current Drinks per week: 175 Substance use: current Substance use type: marijuana Do You Feel Safe in your Home?: Yes Lack of Transportation: No Lack of Food: Never True Current Housing: I Have Housing Concerned About Future Housing: No Difficulty Paying Gas/Electric Bills:
--- NOTE | 2023-07-08 12:34 | P.PCNTEE_ITS ---
YUN TransEsophageal Echocardiogram Date of procedure: 07/08/23 Procedure Type: Date of Procedure: 07/08/2022 Brief History Of Present Illness: Patient is a 58 year old male with bacteremia who is referred for YUN for evaluation for infective endocarditis. Procedure In Detail: After verbal and written informed consent was obtained, the patient risks, benefits, and alternatives explained in detail. The patient agreed to proceed with the plan of care as outlined above.?The patient was evaluated at bedside in the [facility] procedure room.?The posterior oropharynx, neck, and jaw angle all within normal limits on examination. Lungs were clear to auscultation. The patient was then placed in the appropriate 30 to 45 degree angle supine position.?Patient was monitored throughout the study with telemetry, oxygen sat uration, end-tidal CO2 monitoring, blood pressure, heart rate, and respirations.? The posterior hypopharynx was then locally anesthetized using repeated administration of Hurricaine spray as well as gargled viscous lidocaine.? After local anesthetic of the posterior hypopharynx was achieved and the oral bite block placed, sedation was administered by Anesthesia team.? After confirmation of adequate moderate sedation, the transesophageal echocardiogram probe was advanced through the oral bite block into the posterior hypopharynx and into the esophagus easily and without complication.? Multiple, multiplanar echocardiographic images were obtained in multiple standard re- projections.? Color-flow Doppler were utilized in conjunction with this study.? At the conclusion of the study, the transesophageal echocardiogram probe was removed easily and without complication.? The patient tolerated the procedure well without difficulty.? Patient was in sinus rhythm throughout the study. Moderate Sedation/Anesthesia administration: Sedation administered by Anesthesia team. FINDINGS: LEFT VENTRICLE: Size and systolic function were within normal limits RIGHT VENTRICLE:? Size and systolic function within normal limits. LEFT ATRIUM: Normal size. RIGHT ATRIUM: Normal size. INTERATRIAL SEPTUM: ? Interatrial septum is anatomically normal without evidence of shunt with color-flow Doppler MITRAL VALVE: ? Trace regurgitation. No evidence of vegetations. AORTIC VALVE: Trileaflet valve. Trace regurgitation. No evidence of vegetations. TRICUSPID VALVE: Trace regurgitation. No evidence of vegetations. PULMONIC VALVE: Grossly normal. No evidence of vegetations. LEFT ATRIAL APPENDAGE: Anatomically normal structure with prominent pectinate muscles without thrombus or vegetation identified. ? PERICARDIUM: The pericardium was anatomically normal without significant pericardial effusion. ? AORTA: No pathology identified. CONCLUSIONS: No vegetations. Complications: None This dictation may have been done utilizing a voice recognition system.? Attempts have been made to correct errors. However, there may be uncorrected grammatical, spelling, and recognition errors present.
--- NOTE | 2023-07-08 12:42 | PM.PNCARD ---
Progress Note: A&P Assessment and Plan (1) Bacteremia: Code(s): R78.81 - Bacteremia Status: Acute Assessment and Plan: YUN negative for vegetations, negative for infective endocarditis. Cardiology will sign off at this time. Please call us back if needed. Subjective Date/time seen: 07/08/23 12:42 Interval history: Reason for visit: Bacteremia HPI: Patient is a very pleasant 58-year-old AAM with past medical history significant for end-stage renal disease on hemodialysis, chronic alcohol use, GERD, hypertension, hyperlipidemia who was admitted 07/02/2023 after feeling weak, shaky with complaints of chest pain after finishing hemodialysis.? He has been feeling weak and more short of breath with subjective cough, fevers and chills for several days prior to presentation it was noted.? Chest x-ray performed revealed possible 1.2 cm mass left middle lobe and a CT chest revealed pneumonia.? He was subsequent started on IV antibiotics in treated for alcohol withdrawal.? His troponin was mildly elevated relatively flat at 0.113, 0.116, 0.136, 0.142, 0.092.? He has no complaints of chest pain or shortness of breath this time.? He still feels fatigued but better since admission.? Initial blood cultures on 07/02/2023 x2 positive for Methicillin sensitive Staph aureus. On 07/04/23, repeat blood culture? 1 out of 2 positive for methicillin sensitive Staph aureus.? Blood cultures on 07/06/23 x 2 repeated and are pending.? Last documented fever was evening of 07/05/2023.? He has persistent anemia, no leukocytosis this hospitalization.? However, at presentation he had a neutrophilic shift which has subsequently resolved.? Due to repeat positive blood cultures we have been consulted for transesophageal echocardiogram to exclude cardiac source/endocarditis.? Patient is seen during hemodialysis.? Patient states his teeth are in good but he has been trying to take care of them but denies any pain, abscesses recent issues.? He denies any recent injuries, infections of which he is aware.? He has been maintained on intravenous vancomycin and cefazolin with discontinuation of ceftriaxone.? He was previously treated for pneumonia for 5 days of ceftriaxone and azithromycin.? Denies no known CAD, stroke, myocardial infarction or arrhythmias. Date of service 07/08: YUN today. Review of Systems Review of Systems: All systems reviewed & are unremarkable except as noted in HPI and below (HPI) Exam Const: General: no acute distress Eyes: General: appearance normal, both eyes and all related structures Sclera: sclerae normal Resp: Effort & Inspection: normal respiratory effort Cardio: Rate: regular rate Rhythm: regular rhythm Neuro: Speech: normal speech Psych: Mental Status: mental status grossly normal Affect: normal affect Objective Data Vital Signs Vital Signs: Vital Signs - 24 hr 07/07/23 14:00 07/07/23 16:17 07/07/23 20:00 Temperature 37.1 C Pulse Rate 93 87 88 Respiratory Rate 18 Blood Pressure 147/76 H Pulse Oximetry 96 Oxygen Delivery Oxygen Flow Rate Fraction of Inspired Oxygen 07/07/23 20:00 07/08/23 00:00 07/07/23 22:00 Temperature 36.9 C Pulse Rate 87 82 77 Respiratory Rate 18 18 Blood Pressure 128/66 Pulse Oximetry 96 98 Oxygen Delivery Room Air Oxygen Flow Rate Fraction of Inspired Oxygen 98 07/08/23 00:00 07/08/23 02:00 07/08/23 04:00 Temperature Pulse Rate 83 81 79 Respiratory Rate Blood Pressure Pulse Oximetry Oxygen Delivery Oxygen Flow Rate Fraction of Inspired Oxygen 07/08/23 06:00 07/08/23 07:34 07/08/23 12:15 Temperature 36.9 C Pulse Rate 77 77 80 Respiratory Rate 18 32 H Blood Pressure 150/87 H 116/71 Pulse Oximetry 98 100 Oxygen Delivery Nasal Cannula Oxygen Flow Rate 2 Fraction of Inspired Oxygen 07/08/23 12:30 Temperature Pulse Rate 75 Respiratory Rate 24 H Blood Pressure 134/81 Pulse Oximetry 96 Oxyge
--- NOTE | 2023-07-08 16:17 | PM.IMPN ---
Progress Note: A&P Assessment and Plan (1) Bacteremia: Code(s): R78.81 - Bacteremia Status: Acute (2) Anemia: Code(s): D64.9 - Anemia, unspecified Status: Chronic (3) Hypertension: Code(s): I10 - Essential (primary) hypertension Status: Chronic (4) End stage renal disease: Code(s): N18.6 - End stage renal disease Status: Chronic (5) Alcohol withdrawal: Code(s): F10.939 - Alcohol use, unspecified with withdrawal, unspecified Status: Acute (6) Abnormal CT of the chest: Code(s): R93.89 - Abnormal findings on diagnostic imaging of other specified body structures Status: Acute (7) Elevated troponin: Code(s): R79.89 - Other specified abnormal findings of blood chemistry Status: Acute (8) Chronic alcohol use: Code(s): F10.90 - Alcohol use, unspecified, uncomplicated Status: Acute (9) Pneumonia: Code(s): J18.9 - Pneumonia, unspecified organism Status: Acute Plan 58M w/ PMH alcohol abuse, GERD, HLD, HTN, ESRD on dialysis MWF presents with shaking and chest soreness admitted on 07/02/23. # bacteremia - 07/02 MSSA x2 - 07/04 one bottle growing gram positive cocci - 07/06 NGTD - Will need YUN for persistent SAB.? NPO. cardiology consulted on 07/07. - cont vancomcyin pharmacy to dose - 07/07 d/c ceftriaxone and start cefazolin for double MSSA coverage - patient does not appear toxic/septic. his AV fistula does not appear infected, LUE negative # tremors - this is his presenting complaint. resolved. Was either due to alcohol withdrawal or his bacteremia # CAP - received 5 days of ceftriaxone and azithromycin. Now on vancomycin and cefazolin for bacteremia - 12mm mass in left lung. Pneumonia? Repeat CT 1 month after treatment of pneumonia # alcohol abuse with possible alcohol withdrawal - was questionable on admission. He had presenting complaint of tremors. At some point he was sensitive to light. CIWA was only as high as 6. Librium has since been DC. Continue CIWA - counseled. pt wants to change from 2 liters of wine to 1 liter of wine per day but no less. care coordination consultation - PT/OT - thrombocytopenia, likely 2/2 to cirrhosis/alcohol. - transaminitis likely secondary to alcohol use. continue to monitor # elevated troponin - flat. cont to trend. chest pain on presentation described as atypical. Has since resolved. EKG w/o acute ischemia # ESRD on dialysis MWF - on schedule. consult nephrology - pt had dialysis # HTN - controlled. CPM # GERD - CPM 07/08/2023 Pt having YUN today, no vegetations found Subjective Date/time seen: 07/08/23 16:17 Interval history: Pt having YUN today history of bacteremia Review of Systems Review of Systems: no acute issues All systems reviewed & are unremarkable except as noted in HPI and below (Subjective) Exam Narrative: PHYSICAL EXAMINATION: Vital signs: Please see the chart General physical exam: Patient lying in bed, appears sleepy tired and fatigued, not having any active chest pain Head/eyes: Atraumatic, EOMI, PERRLA ENT: Moist mucous membranes, nasal passages clear Neck: Supple, full range of motion, trachea midline CVS: S1 + S2, regular rate and rhythm, no murmurs Respiratory: Bilaterally decreased air entry in both lung marte, mild B/L crackles, symmetric chest expansion, + left lung rhonchi Abdomen: Soft, non-tender, bowel sounds +ve, no organomegaly Extremities: No clubbing, no cyanosis, no edema, no calf tenderness Musculoskeletal: Moves all, adequate range of motion, no muscle spasms Skin: Warm, dry, no jaundice, no cyanosis Neurological: Awake, alert, cranial nerves II-XII intact, no focal neurological deficits Psychiatric: Normal mood, non suicidal Objective Data Vital Signs Vital Signs: Vital Signs - 24 hr 07/07/23 20:00 07/07/23 20:00 07/08/23 00:00 Temperature 36.9 C Pulse Rate 88 87 82 Respiratory R
[2023-07-08] MEDS: ACETAMINOPHEN 325 MG TABLET 650 MG PO (18:22)
[2023-07-09] VITALS (29 sets, daily range): BP systolic 126–203; BP diastolic 59–111; PULSE 62–112; RESP 16–22; TEMP 35.7–39.2; O2SAT 93–98
[2023-07-09 05:34] LABS: Vancomycin Random 15.7 ug/mL (10-20)
--- NOTE | 2023-07-09 07:10 | PC.NURSE ---
Pt dialysis via bed. No issues noted
[2023-07-09] MEDS: SODIUM CHLORIDE 0.9% IV 1,000 ML 999 ML IV CONT ×2 (07:34→11:35)
[2023-07-09] MEDS: cloNIDine HCL 0.2 MG TABLET PO ×2 (08:40→16:45)
--- NOTE | 2023-07-09 09:00 | PC.NURSE ---
Spoke with Dr. Jin regarding pt not receiving Renvela due to medication not being on home medication list. RN added medication to home medication list this AM. New order to resume home medication.
[2023-07-09] MEDS: EPOETIN ALFA-EPBX 10,000 UNITS/ML VIAL 10000 UNITS IV PUSH (10:00)
--- NOTE | 2023-07-09 10:15 | P.PNNP_ITS ---
Progress Note: A&P Assessment and Plan (1) End stage renal disease: Code(s): N18.6 - End stage renal disease Status: Chronic Assessment and Plan: * HD today * continue M/W/F dialysis schedule while hospitalized * follow electrolytes, volume status, and clearance * follows with Dr. Hayes at [facility] (2) Bacteremia: Code(s): R78.81 - Bacteremia Status: Acute Assessment and Plan: * blood cultures with methicillin sensitive Staphylococcus aureus * YUN negative for vegetations * ultrasound of AVF negative for abscess * on antibiotic therapy (3) Pneumonia: Code(s): J18.9 - Pneumonia, unspecified organism Status: Acute Assessment and Plan: * as noted by admission imaging * culture data noted * completed course of antibiotics for this issue (4) Hypertension: Code(s): I10 - Essential (primary) hypertension Status: Chronic Assessment and Plan: * reasonable control at this time * follow trend of hemodynamics (5) Anemia: Code(s): D64.9 - Anemia, unspecified Status: Chronic Assessment and Plan: * due to ESRD * Epogen with HD * follow trend of H/H Will continue to follow. Subjective Date/time seen: 07/09/23 10:15 Interval history: Follow-up for end stage renal disease on hemodialysis. Tolerating hemodialysis treatment at the time of my visit (seen on HD at 10:05AM); YUN yesterday negative for vegetations; no apparent distress noted; no other issues overnight or earlier this morning. Exam Narrative: General: WD/WN male in NAD Heart: normal S1 and S2; no rub Lungs: clear breath sounds Abdomen: soft, nontender, nondistended, positive bowel sounds Extremities: no cyanosis or clubbing; no edema Skin: warm and dry Objective Data Vital Signs Vital Signs: Vital Signs Temp Pulse Resp BP Pulse Ox O2 Del Method FiO2 07/09/23 08:00 86 07/09/23 00:00 97 07/09/23 04:00 95 07/09/23 03:33 98.2 F 90 18 163/78 H 98 07/08/23 20:00 92 18 98 Room Air 98 07/08/23 20:00 90 07/08/23 20:50 98.2 F 92 18 127/84 98 07/08/23 18:00 95 07/08/23 16:00 86 07/08/23 18:00 99.9 F H 07/08/23 16:10 98.5 F 84 18 164/90 H 99 Intake/Output Intake/Output: Intake & Output 07/06/23 07/07/23 07/08/23 07/09/23 23:59 23:59 23:59 23:59 Intake Total 1320 490 250 400 Output Total 400 2200 350 Balance 920 -1710 250 50 Meds/Results Medications: Active Medications Generic Name Dose Route Start Last Admin Trade Name Freq PRN Reason Stop Dose Admin Acetaminophen 650 mg 07/03/23 00:25 07/09/23 11:56 Acetaminophen 325 Mg Tablet PO 650 mg Q4H PRN Administration Mild Pain (1-3) or Fever Al Hydrox/Mg Hydrox/Simethicone 30 ml 07/03/23 00:25 Mag Hydrox/Al Hydrox/Simeth 30 Ml Udc PO QID PRN Dyspepsia Allopurinol 300 mg 07/03/23 09:00 07/09/23 11:56 Allopurinol 300 Mg Tablet PO 300 mg DAILY SHERRIE Administration Atorvastat
--- NOTE | 2023-07-09 10:15 | PM.PNNEP ---
Progress Note: A&P Assessment and Plan (1) End stage renal disease: Code(s): N18.6 - End stage renal disease Status: Chronic Assessment and Plan: HD today continue M/W/F dialysis schedule while hospitalized follow electrolytes, volume status, and clearance follows with Dr. Hayes at [facility] (2) Bacteremia: Code(s): R78.81 - Bacteremia Status: Acute Assessment and Plan: blood cultures with methicillin sensitive Staphylococcus aureus YUN negative for vegetations ultrasound of AVF negative for abscess on antibiotic therapy (3) Pneumonia: Code(s): J18.9 - Pneumonia, unspecified organism Status: Acute Assessment and Plan: as noted by admission imaging culture data noted completed course of antibiotics for this issue (4) Hypertension: Code(s): I10 - Essential (primary) hypertension Status: Chronic Assessment and Plan: reasonable control at this time follow trend of hemodynamics (5) Anemia: Code(s): D64.9 - Anemia, unspecified Status: Chronic Assessment and Plan: due to ESRD Epogen with HD follow trend of H/H Will continue to follow. Subjective Date/time seen: 07/09/23 10:15 Interval history: Follow-up for end stage renal disease on hemodialysis. Tolerating hemodialysis treatment at the time of my visit (seen on HD at 10:05AM); YUN yesterday negative for vegetations; no apparent distress noted; no other issues overnight or earlier this morning. Exam Narrative: General: WD/WN male in NAD Heart: normal S1 and S2; no rub Lungs: clear breath sounds Abdomen: soft, nontender, nondistended, positive bowel sounds Extremities: no cyanosis or clubbing; no edema Skin: warm and dry Objective Data Vital Signs Vital Signs: Vital Signs Temp Pulse Resp BP Pulse Ox O2 Del Method FiO2 07/09/23 08:00 86 07/09/23 00:00 97 07/09/23 04:00 95 07/09/23 03:33 98.2 F 90 18 163/78 H 98 07/08/23 20:00 92 18 98 Room Air 98 07/08/23 20:00 90 07/08/23 20:50 98.2 F 92 18 127/84 98 07/08/23 18:00 95 07/08/23 16:00 86 07/08/23 18:00 99.9 F H 07/08/23 16:10 98.5 F 84 18 164/90 H 99 Intake/Output Intake/Output: Intake & Output 07/06/23 07/07/23 07/08/23 07/09/23 23:59 23:59 23:59 23:59 Intake Total 1320 490 250 400 Output Total 400 2200 350 Balance 920 -1710 250 50 Meds/Results Medications: Active Medications Generic Name Dose Route Start Last Admin Trade Name [place] PRN Reason Stop Dose Admin Acetaminophen 650 mg 07/03/23 00:25 07/09/23 11:56 Acetaminophen 325 Mg Tablet PO 650 mg Q4H PRN Administration Mild Pain (1-3) or Fever Al Hydrox/Mg Hydrox/Simethicone 30 ml 07/03/23 00:25 Mag Hydrox/Al Hydrox/Simeth 30 Ml Udc PO QID PRN Dyspepsia Allopurinol 300 mg 07/03/23 09:00 07/09/23 11:56 Allopurinol 300 Mg Tablet PO 300 mg DAILY SHERRIE Administration Atorvastatin Calcium 40 mg 07/03/23 09:00 07/09/23 11:56 Atorvastatin 40 Mg Tablet PO 40 mg DAILY SHERRIE Administration Clonidine HCl 0.2 mg 07/03/23 09:00 07/09/23 08:40 Clonidine Hcl 0.2 Mg Tablet PO 0.2 mg BID SHERRIE Administration Enoxaparin Sodium 30 mg 07/03/23 09:00 07/09/23 11:56 Enoxaparin 30 Mg/0.3 Ml Syringe SUB-Q 30 mg DAILY SHERRIE Administration Epoetin Huan-epbx 10,000 units 07/09/23 20:00 07/09/23 10:00 Epoetin Huan-Epbx 10,000 Units/Ml Vial IV PUSH 07/09/23 20:01 10,000 units ONCE ONE Administration Ergocalciferol 50,000 units 07/07/23 09:00 07/07/23 13:45 Ergocalciferol 50,000 Units Capsule PO 50,000 units WEEKLY SHERRIE Administration Folic Acid 1 mg 07/03/23 09:00 07/09/23 11:56 Folic Acid 1 Mg Tablet PO 1 mg DAILY SHERRIE Administration Hydralazine HCl 25 mg 07/09/23 11:51 07/09/23 12:03 Hydr
--- NOTE | 2023-07-09 11:14 | PCPTNOTE ---
Attempted to see patient for PT, however patient was out of the room for dialysis.
[2023-07-09] MEDS: HEPARIN SODIUM 1,000 UNITS/ML VIAL 4000 UNITS (11:34)
--- NOTE | 2023-07-09 11:43 | PC.NURSE ---
Pt returned from dialysis via bed. No issues noted. Spoke with Dr. Jin regarding patient's status. New order for pt to be med/surg since YUN was negative and cardiology has signed off.
[2023-07-09] MEDS: FOLIC ACID 1 MG TABLET PO (11:56)
[2023-07-09] MEDS: SODIUM BICARBONATE TAB 650 MG TABLET PO ×2 (11:56→16:45)
[2023-07-09] MEDS: ENOXAPARIN 30 MG/0.3 ML SYRINGE SUB-Q (11:56)
[2023-07-09] MEDS: ATORVASTATIN 40 MG TABLET PO (11:56)
[2023-07-09] MEDS: ACETAMINOPHEN 325 MG TABLET 650 MG PO ×2 (11:56→20:19)
[2023-07-09] MEDS: THIAMINE HCL 200 MG/2 ML VIAL 100 MG IV PUSH (11:56)
[2023-07-09] MEDS: ceFAZolin 1 GM/NS 50 ML 1 GM/50 ML BAG IVPB (11:56)
[2023-07-09] MEDS: PANTOPRAZOLE 40 MG TABLET PO (11:56)
[2023-07-09] MEDS: allopurinoL 300 MG TABLET PO (11:56)
[2023-07-09] MEDS: hydrALAZINE HCL 25 MG TABLET PO (12:03)
--- NOTE | 2023-07-09 12:07 | PC.NURSE ---
Notified Dr. Jin of elevated BP of 173/100. Pt received Clonidine this AM. New order for 25mg PO Hydralazine TID PRN for SBP >160.
--- NOTE | 2023-07-09 13:24 | PM.IMPN ---
Progress Note: A&P Assessment and Plan (1) Bacteremia: Code(s): R78.81 - Bacteremia Status: Acute (2) Anemia: Code(s): D64.9 - Anemia, unspecified Status: Chronic (3) Hypertension: Code(s): I10 - Essential (primary) hypertension Status: Chronic (4) End stage renal disease: Code(s): N18.6 - End stage renal disease Status: Chronic (5) Alcohol withdrawal: Code(s): F10.939 - Alcohol use, unspecified with withdrawal, unspecified Status: Acute (6) Abnormal CT of the chest: Code(s): R93.89 - Abnormal findings on diagnostic imaging of other specified body structures Status: Acute (7) Elevated troponin: Code(s): R79.89 - Other specified abnormal findings of blood chemistry Status: Acute (8) Chronic alcohol use: Code(s): F10.90 - Alcohol use, unspecified, uncomplicated Status: Acute (9) Pneumonia: Code(s): J18.9 - Pneumonia, unspecified organism Status: Acute Plan 58M w/ PMH alcohol abuse, GERD, HLD, HTN, ESRD on dialysis MWF presents with shaking and chest soreness admitted on 07/02/23. # bacteremia - 07/02 MSSA x2 - 07/07 d/c ceftriaxone on iv cefazolin for double MSSA coverage - patient does not appear toxic/septic. his AV fistula does not appear infected, LUE negative - DIETER was negative no vegetations found -D/W Akaash Pt will need other 2 weeks of IV abx # tremors - this is his presenting complaint. resolved. Was either due to alcohol withdrawal or his bacteremia # CAP - received 5 days of ceftriaxone and azithromycin. Now on vanc/ cefazolin for bacteremia - 12mm mass in left lung. Pneumonia? Repeat CT 1 month after treatment of pneumonia # alcohol abuse with possible alcohol withdrawal - was questionable on admission. He had presenting complaint of tremors. At some point he was sensitive to light. CIWA was only as high as 6. Librium has since been DC. Continue CIWA - counseled. pt wants to change from 2 liters of wine to 1 liter of wine per day but no less. care coordination consultation - PT/OT - thrombocytopenia, likely 2/2 to cirrhosis/alcohol. - transaminitis likely secondary to alcohol use. continue to monitor # elevated troponin - flat. cont to trend. chest pain on presentation described as atypical. Has since resolved. EKG w/o acute ischemia # ESRD on dialysis MWF - on schedule. consult nephrology - pt had dialysis # HTN - controlled. CPM # GERD - CPM 07/08/2023 Pt having DIETER today, no vegetations found 07/09/2023 Pt needs to Dc with 2 weeks of IV ABX Subjective Date/time seen: 07/09/23 13:24 Interval history: History of bacteremia Dieter is negative Pt found to have MSSA in blood cultures rpt BC are negative Pt having fevers today D/W Akaash Pt will need other 2 weeks of IV abx Review of Systems Review of Systems: Fever chills shakes Exam Narrative: PHYSICAL EXAMINATION: Vital signs: Please see the chart General physical exam: Patient lying in bed, appears sleepy tired and fatigued, not having any active chest pain Head/eyes: Atraumatic, EOMI, PERRLA ENT: Moist mucous membranes, nasal passages clear Neck: Supple, full range of motion, trachea midline CVS: S1 + S2, regular rate and rhythm, no murmurs Respiratory: Bilaterally decreased air entry in both lung marte, mild B/L crackles, symmetric chest expansion, + left lung rhonchi Abdomen: Soft, non-tender, bowel sounds +ve, no organomegaly Extremities: No clubbing, no cyanosis, no edema, no calf tenderness Musculoskeletal: Moves all, adequate range of motion, no muscle spasms Skin: Warm, dry, no jaundice, no cyanosis Neurological: Awake, alert, cranial nerves II-XII intact, no focal neurological deficits Psychiatric: Normal mood, non suicidal Objective Data Vital Signs Vital Signs: Vital Signs - 24 hr 07/08/23 16:10 07/08/23 14:00 07/08/23 18:00 Temperature 36.9 C 37.7 C H Pulse R
[2023-07-09] MEDS: SEVELAMER CARBONATE 800 MG TABLET 2400 MG PO ×2 (13:28→16:45)
--- NOTE | 2023-07-09 15:39 | P.PNINF_ITS ---
Pharmacy ID Consult - Stewardship Interventions Type of Interventions: Discharge Recommendation Pharmacy ID Note: Subjective Pharmacy was consulted by Garfield Jin regarding infectious diseases for Harrison Bains. Harrison Bains is a 58 year old M with concerns regarding MSSA B SI. Background The patient is currently receiving cefazolin 1g daily - with first negative set of cultures from 07/06/2023. The patient's PMH includes being on hemodialysis. Ad ditionally, the patient underwent a YUN on 07/08/2023 and no vegetation was found and per provider note AV fistula does not appear to be infected. Microbiology 07/08/23 08:28 Blood Blood Culture - Preliminary 07/08/23 08:07 Blood Blood Culture - Preliminary 07/06/23 15:49 Blood Blood Culture - Preliminary 07/06/23 15:41 Blood Blood Culture - Preliminary 07/04/23 14:18 Blood Blood Culture - Preliminary 07/04/23 14:17 Blood Blood Culture - Final Staphylococcus aureus 07/02/23 14:57 Blood Blood Culture - Final Staphylococcus aureus 07/02/23 14:28 Blood Blood Culture - Final Staphylococcus aureus Laboratory Tests 07/07/23 07/07/23 07/08/23 04:54 04:54 08:07 WBC 8.2 9.8 Creatinine 8.80 H Procalcitonin 24.3 07/08/23 08:07 WBC Creatinine 7.20 H Procalcitonin Assessment/Recommendation/Discussion Patient is currently receiving MSSA coverage for Bacteremia with cefazolin, renally dosed for hemodialysis (1 gram daily). This regimen can be continued outpatient, however, can consider giving patient thrice weekly cefazolin with hemodialysis with 2 grams on the days with 48 hour interdialytic period and 3g on the 72 hour interdialytic period. ex. for MWF HD, 2g on and and 3g on Friday. Duration of therapy for MSSA BSI that is uncomplicated is often 2 weeks from negative culture which would yield a final dose at the 07/18 HD session for therapy until 07/19. If complicated infection, then do 4 week course from negative cultures (2/2 HD session for therapy until 08/02). Will defer to provider for infection staging. Alternative treatments include cefazolin 1 gram daily, nafcillin / oxacillin 12 g / day (but monitor for neurotoxicity and liver function), or vancomycin with HD. Will sign off. Guillermo K. Love, PharmD Infectious Disease/Antimicrobial Stewardship Pharmacist 07/09/23; 1539 WBC 9.8 K/mm3 (4.5-10.0) 07/08/23 08:07 Creatinine 7.20 mg/dL (0.7-1.3) H 07/08/23 08:07 Estim Creat Clear Calc 11 ml/min 07/08/23 08:07
--- NOTE | 2023-07-10 04:42 | PC.NURSE ---
This patient, Harrison Bains, was transferred to [ [facility]] on 07/10/23 at 0442. Personal belongings sent with patient. Report given to [Yakelin CHOE ]. Appropriate documentation sent with patient.
[2023-07-10 05:35] VITALS: BP 140/87; PULSE 87; RESP 18; TEMP 37.4; O2SAT 95
[2023-07-10] MEDS: FOLIC ACID 1 MG TABLET PO (08:03)
[2023-07-10] MEDS: PANTOPRAZOLE 40 MG TABLET PO (08:03)
[2023-07-10] MEDS: ceFAZolin 1 GM/NS 50 ML 1 GM/50 ML BAG IVPB (08:04)
[2023-07-10] MEDS: allopurinoL 300 MG TABLET PO (08:04)
[2023-07-10] MEDS: cloNIDine HCL 0.2 MG TABLET PO ×2 (08:04→16:45)
[2023-07-10] MEDS: ATORVASTATIN 40 MG TABLET PO (08:04)
[2023-07-10] MEDS: SEVELAMER CARBONATE 800 MG TABLET 2400 MG PO ×3 (08:04→16:45)
[2023-07-10] MEDS: SODIUM BICARBONATE TAB 650 MG TABLET PO ×2 (08:04→16:45)
[2023-07-10] MEDS: THIAMINE HCL 200 MG/2 ML VIAL 100 MG IV PUSH (08:09)
[2023-07-10] MEDS: ENOXAPARIN 30 MG/0.3 ML SYRINGE SUB-Q (08:10)
--- NOTE | 2023-07-10 10:33 | PCNWS ---
Weekly nutritional screen. Patient is tolerating current Renal diet with adequate intake 75-100%. No weight loss reported. No nutritional needs at this time.
--- NOTE | 2023-07-10 12:09 | PM.IMPN ---
Progress Note: A&P Assessment and Plan (1) Bacteremia: Code(s): R78.81 - Bacteremia Status: Acute (2) Anemia: Code(s): D64.9 - Anemia, unspecified Status: Chronic (3) Hypertension: Code(s): I10 - Essential (primary) hypertension Status: Chronic (4) End stage renal disease: Code(s): N18.6 - End stage renal disease Status: Chronic (5) Alcohol withdrawal: Code(s): F10.939 - Alcohol use, unspecified with withdrawal, unspecified Status: Acute (6) Abnormal CT of the chest: Code(s): R93.89 - Abnormal findings on diagnostic imaging of other specified body structures Status: Acute (7) Elevated troponin: Code(s): R79.89 - Other specified abnormal findings of blood chemistry Status: Acute (8) Chronic alcohol use: Code(s): F10.90 - Alcohol use, unspecified, uncomplicated Status: Acute (9) Pneumonia: Code(s): J18.9 - Pneumonia, unspecified organism Status: Acute Plan 58M w/ PMH alcohol abuse, GERD, HLD, HTN, ESRD on dialysis MWF presents with shaking and chest soreness admitted on 07/02/23. # bacteremia - 07/02 MSSA x2 - 07/07 d/c ceftriaxone on iv cefazolin for double MSSA coverage - patient does not appear toxic/septic. his AV fistula does not appear infected, LUE negative - DIETER was negative no vegetations found -D/W Akaash Pt will need other 2 weeks of IV abx see details below # tremors - this is his presenting complaint. resolved. Was either due to alcohol withdrawal or his bacteremia # CAP - received 5 days of ceftriaxone and azithromycin. Now on vanc/ cefazolin for bacteremia - 12mm mass in left lung. Pneumonia? Repeat CT 1 month after treatment of pneumonia # alcohol abuse with possible alcohol withdrawal - was questionable on admission. He had presenting complaint of tremors. At some point he was sensitive to light. CIWA was only as high as 6. Librium has since been DC. Continue CIWA - counseled. pt wants to change from 2 liters of wine to 1 liter of wine per day but no less. care coordination consultation - PT/OT - thrombocytopenia, likely 2/2 to cirrhosis/alcohol. - transaminitis likely secondary to alcohol use. continue to monitor # elevated troponin - flat. cont to trend. chest pain on presentation described as atypical. Has since resolved. EKG w/o acute ischemia # ESRD on dialysis MWF - on schedule. consult nephrology - pt had dialysis # HTN - controlled. CPM # GERD - CPM 07/08/2023 Pt having DIETER today, no vegetations found 07/09/2023 Pt needs to Dc with 2 weeks of IV ABX 07/10/2023 ABX are all set up already add ordered just need to add to dc instructions on dc Ancef 2 grams Friday and Friday Ancef 3 grams of Friday until 07/19/23 During dialysis sessions However pt to be DC on Friday after his dialysis here Dc on Friday no other acute issues mentioned today Subjective Date/time seen: 07/10/23 12:09 Interval history: History of bacteremia Dieter is negative Pt found to have MSSA in blood cultures Rpt BC are negative Pt more stable today Pt very keen to leave but may need to wait until filiberto after his dialysis here on Friday AM Review of Systems Review of Systems: No acute issues Exam Narrative: PHYSICAL EXAMINATION: Vital signs: Please see the chart General physical exam: Patient lying in bed, appears sleepy tired and fatigued, not having any active chest pain Head/eyes: Atraumatic, EOMI, PERRLA ENT: Moist mucous membranes, nasal passages clear Neck: Supple, full range of motion, trachea midline CVS: S1 + S2, regular rate and rhythm, no murmurs Respiratory: Bilaterally decreased air entry in both lung marte, mild B/L crackles, symmetric chest expansion, + left lung rhonchi Abdomen: Soft, non-tender, bowel sounds +ve, no organomegaly Extremities: No clubbing, no cyanosis, no edema, no calf tenderness Musculoskeletal: Moves all, adeq
--- NOTE | 2023-07-10 12:10 | P.PNNP_ITS ---
Progress Note: A&P Assessment and Plan (1) End stage renal disease: Code(s): N18.6 - End stage renal disease Status: Chronic Assessment and Plan: * HD tomorrow * continue M/W/F dialysis schedule while hospitalized * follow electrolytes, volume status, and clearance * follows with Dr. Hayes at [facility] (2) Bacteremia: Code(s): R78.81 - Bacteremia Status: Acute Assessment and Plan: * blood cultures with methicillin sensitive Staph aureus * YUN negative for vegentations * ultrasound of AVF negative for abscess * on antibiotic therapy (3) Pneumonia: Code(s): J18.9 - Pneumonia, unspecified organism Status: Acute Assessment and Plan: * as noted by admission imaging * culture data noted * completed course of antibiotics for this issue (4) Hypertension: Code(s): I10 - Essential (primary) hypertension Status: Chronic Assessment and Plan: * reasonable control at this time * follow trend of hemodynamics (5) Anemia: Code(s): D64.9 - Anemia, unspecified Status: Chronic Assessment and Plan: * due to ESRD * Epogen with HD * follow trend of H/H Will continue to follow. Subjective Date/time seen: 07/10/23 12:10 Interval history: Follow-up for end stage renal disease on hemodialysis. Tolerated hemodialysis treatment yesterday without any issue or problems; kiara erating antibiotic therapy at this time; no apparent distress noted at the time of my visit; no issues/events overnight or earlier this morning. Exam Narrative: General: WD/WN male in NAD Heart: normal S1 and S2; no rub Lungs: clear to auscultation Abdomen: soft, nontender, nondistended, positive bowel sounds Extremities: no cyanosis or clubbing; no edema Skin: warm and dry Objective Data Vital Signs Vital Signs: Vital Signs Temp Pulse Resp BP Pulse Ox O2 Del Method 07/10/23 12:00 99.1 F 86 18 123/69 98 07/10/23 08:00 Room Air 07/10/23 05:35 99.4 F 87 18 140/87 95 07/09/23 23:56 97.7 F 77 18 131/78 96 07/09/23 20:19 100.3 F H 07/09/23 20:11 100.3 F H 96 18 157/91 H 96 Intake/Output Intake/Output: Intake & Output 07/07/23 07/08/23 07/09/23 07/10/23 23:59 23:59 23:59 23:59 Intake Total 490 929 896 0055 Output Total 2200 2550 Balance -1710 250 -1630 1352 Meds/Results Medications: Active Medications Generic Name Dose Route Start Last Admin Trade Name Freq PRN Reason Stop Dose Admin Acetaminophen 650 mg 07/03/23 00:25 07/10/23 16:54 Acetaminophen 325 Mg Tablet PO 650 mg Q4H PRN Administration Mild Pain (1-3) or Fever Al Hydrox/Mg Hydrox/Simethicone 30 ml 07/03/23 00:25 Mag Hydrox/Al Hydrox/Simeth 30 Ml Udc PO QID PRN Dyspepsia Allopurinol 300 mg 07/03/23 09:00 07/10/23 08:04 Allopurinol 300 Mg Tablet PO 300 mg DAILY SHERRIE Administration Atorvastatin Calcium 40 mg 07/03/23 09:00 07/10/23 08:04 Atorvastatin 40 Mg Tablet PO 40 mg DAILY SHERRIE Administration Clonidine HCl 0.2 mg 0
--- NOTE | 2023-07-10 12:10 | PM.PNNEP ---
Progress Note: A&P Assessment and Plan (1) End stage renal disease: Code(s): N18.6 - End stage renal disease Status: Chronic Assessment and Plan: HD tomorrow continue M/W/F dialysis schedule while hospitalized follow electrolytes, volume status, and clearance follows with Dr. Hayse at [facility] (2) Bacteremia: Code(s): R78.81 - Bacteremia Status: Acute Assessment and Plan: blood cultures with methicillin sensitive Staph aureus YUN negative for vegentations ultrasound of AVF negative for abscess on antibiotic therapy (3) Pneumonia: Code(s): J18.9 - Pneumonia, unspecified organism Status: Acute Assessment and Plan: as noted by admission imaging culture data noted completed course of antibiotics for this issue (4) Hypertension: Code(s): I10 - Essential (primary) hypertension Status: Chronic Assessment and Plan: reasonable control at this time follow trend of hemodynamics (5) Anemia: Code(s): D64.9 - Anemia, unspecified Status: Chronic Assessment and Plan: due to ESRD Epogen with HD follow trend of H/H Will continue to follow. Subjective Date/time seen: 07/10/23 12:10 Interval history: Follow-up for end stage renal disease on hemodialysis. Tolerated hemodialysis treatment yesterday without any issue or problems; tolerating antibiotic therapy at this time; no apparent distress noted at the time of my visit; no issues/events overnight or earlier this morning. Exam Narrative: General: WD/WN male in NAD Heart: normal S1 and S2; no rub Lungs: clear to auscultation Abdomen: soft, nontender, nondistended, positive bowel sounds Extremities: no cyanosis or clubbing; no edema Skin: warm and dry Objective Data Vital Signs Vital Signs: Vital Signs Temp Pulse Resp BP Pulse Ox O2 Del Method 07/10/23 12:00 99.1 F 86 18 123/69 98 07/10/23 08:00 Room Air 07/10/23 05:35 99.4 F 87 18 140/87 95 07/09/23 23:56 97.7 F 77 18 131/78 96 07/09/23 20:19 100.3 F H 07/09/23 20:11 100.3 F H 96 18 157/91 H 96 Intake/Output Intake/Output: Intake & Output 01/0807/08/23 07/09/23 07/10/23 23:59 23:59 23:59 23:59 Intake Total 490 797 670 3240 Output Total 2200 2550 Balance -1710 250 -1630 1352 Meds/Results Medications: Active Medications Generic Name Dose Route Start Last Admin Trade Name Freq PRN Reason Stop Dose Admin Acetaminophen 650 mg 07/03/23 00:25 07/10/23 16:54 Acetaminophen 325 Mg Tablet PO 650 mg Q4H PRN Administration Mild Pain (1-3) or Fever Al Hydrox/Mg Hydrox/Simethicone 30 ml 07/03/23 00:25 Mag Hydrox/Al Hydrox/Simeth 30 Ml Udc PO QID PRN Dyspepsia Allopurinol 300 mg 07/03/23 09:00 07/10/23 08:04 Allopurinol 300 Mg Tablet PO 300 mg DAILY SHERRIE Administration Atorvastatin Calcium 40 mg 07/03/23 09:00 07/10/23 08:04 Atorvastatin 40 Mg Tablet PO 40 mg DAILY SHERRIE Administration Clonidine HCl 0.2 mg 07/03/23 09:00 07/10/23 16:45 Clonidine Hcl 0.2 Mg Tablet PO 0.2 mg BID SHERRIE Administration Enoxaparin Sodium 30 mg 07/03/23 09:00 07/10/23 08:10 Enoxaparin 30 Mg/0.3 Ml Syringe SUB-Q 30 mg DAILY SHERRIE Administration Ergocalciferol 50,000 units 07/07/23 09:00 07/07/23 13:45 Ergocalciferol 50,000 Units Capsule PO 50,000 units WEEKLY SHERRIE Administration Folic Acid 1 mg 07/03/23 09:00 07/10/23 08:03 Folic Acid 1 Mg Tablet PO 1 mg DAILY SHERRIE Administration Hydralazine HCl 25 mg 07/09/23 11:51 07/09/23 12:03 Hydralazine Hcl 25 Mg Tablet PO 25 mg TID PRN Administration Hypertension Albumin Human 50 mls @ 999 mls/hr 07/04/23 05:46 Albutein IVPB 08/03/23 05:45 Q10M PRN HYPOTENSION Cefazolin Sodium 1 gm in 50 mls @ 100 mls/hr 07/07/23 09:15 07/10/23 08:34 Ancef 1 Gm
[2023-07-10 16:00] VITALS: BP 123/69; PULSE 86; RESP 18; TEMP 37.3; O2SAT 98
[2023-07-10 16:54] VITALS: TEMP 37.3
[2023-07-10] MEDS: ACETAMINOPHEN 325 MG TABLET 650 MG PO (16:54)
[2023-07-10 17:54] VITALS: TEMP 37.9
[2023-07-10 21:39] VITALS: BP 142/94; PULSE 69; RESP 18; TEMP 36.5; O2SAT 96
[2023-07-11] VITALS (18 sets, daily range): BP systolic 106–167; BP diastolic 59–94; PULSE 60–93; RESP 14–18; TEMP 36.4–37.4; O2SAT 96–97
[2023-07-11 06:48] LABS: Basophils Percent Auto 0.3 % (0.2-1.2); Eosinophils Absolute Auto 0.2 K/mm3 (0-0.3); Eosinophils Percent Auto 1.9 % (0-4.4); Hematocrit 24.6 % (42.0-52.0); Hemoglobin 7.9 g/dL (14.0-18.0); Immature Granulocyte Absolute 0.08 K/mm3 (0.00-0.031); Immature Granulocyte Percent A 0.8 % (0-0.5); Lymphocytes Absolute Auto 1.39 K/mm3 (0.9-3.2); Lymphocytes Percent Auto 14.2 % (18.3-44.2); Mean Corpuscular HGB Conc 32.1 g/dl (32-36); Mean Corpuscular Hemoglobin 32.9 pg (26-34); Mean Corpuscular Volume 102.5 fl (80-100); Mean Platelet Volume 10.7 fl (7.4-10.4); Monocytes Absolute Auto 0.8 K/mm3 (0.1-0.6); Monocytes Percent Auto 8.4 % (2.6-8.5); Neutrophils Absolute Auto 7.3 K/mm3 (1.3-6.7); Neutrophils Percent Auto 74.4 % (45.5-73.1); Platelet Count Result 227 k/mm3 (150-375); Red Cell Distribution Width 16.8 % (11.5-14.5); White Blood Count 9.8 K/mm3 (4.5-10.0)
[2023-07-11 07:04] LABS: Alanine Aminotransferase 10 U/L (6-50); Albumin Level 3.2 g/dL (3.5-5.1); Alkaline Phosphatase 87 U/L (38-126); Anion Gap 9 mmol/L (8-16); Aspartate Amino Transferase 34 U/L (17-59); Bilirubin,Total 0.4 mg/dL (0.2-1.3); Blood Urea Nitrogen 52 mg/dL (9-20); Carbon Dioxide 29 mmol/L (22-30); Chloride 95 mmol/L (98-107); Estimated CRCL calculation 10 ml/min; Estimated Glomerular Filt Rate 8; Glucose 111 mg/dL (65-110); Magnesium 1.9 mg/dL (1.6-2.3); Sodium 133 mmol/L (137-145)
--- NOTE | 2023-07-11 09:03 | PM.IMPN ---
Progress Note: A&P Assessment and Plan (1) Bacteremia: Code(s): R78.81 - Bacteremia Status: Acute (2) Anemia: Code(s): D64.9 - Anemia, unspecified Status: Chronic (3) Hypertension: Code(s): I10 - Essential (primary) hypertension Status: Chronic (4) End stage renal disease: Code(s): N18.6 - End stage renal disease Status: Chronic (5) Alcohol withdrawal: Code(s): F10.939 - Alcohol use, unspecified with withdrawal, unspecified Status: Acute (6) Abnormal CT of the chest: Code(s): R93.89 - Abnormal findings on diagnostic imaging of other specified body structures Status: Acute (7) Elevated troponin: Code(s): R79.89 - Other specified abnormal findings of blood chemistry Status: Acute (8) Chronic alcohol use: Code(s): F10.90 - Alcohol use, unspecified, uncomplicated Status: Acute (9) Pneumonia: Code(s): J18.9 - Pneumonia, unspecified organism Status: Acute Plan 58M w/ PMH alcohol abuse, GERD, HLD, HTN, ESRD on dialysis MWF presents with shaking and chest soreness admitted on 07/02/23. # bacteremia - 07/02 MSSA x2 - 07/07 d/c ceftriaxone on iv cefazolin for double MSSA coverage - patient does not appear toxic/septic. his AV fistula does not appear infected, LUE negative - YUN was negative no vegetations found -remains intermittently febrile. Nine hundred twenty-four came back positive again growing Staph aureus Will add daptomycin along with cefazolin Ultrasound left fistula with no signs of abscess Plan for cefazolin with intermittent dialysis # tremors - this is his presenting complaint. resolved. Was either due to alcohol withdrawal or his bacteremia # CAP - received 5 days of ceftriaxone and azithromycin. Now on vanc/ cefazolin for bacteremia - 12mm mass in left lung. Pneumonia? Repeat CT 1 month after treatment of pneumonia # alcohol abuse with possible alcohol withdrawal - was questionable on admission. He had presenting complaint of tremors. At some point he was sensitive to light. CIWA was only as high as 6. Librium has since been DC. Continue CIWA - counseled. pt wants to change from 2 liters of wine to 1 liter of wine per day but no less. care coordination consultation - PT/OT - thrombocytopenia, likely 2/2 to cirrhosis/alcohol. - transaminitis likely secondary to alcohol use. continue to monitor # elevated troponin - flat. cont to trend. chest pain on presentation described as atypical. Has since resolved. EKG w/o acute ischemia TTE 07/05/2023 unremarkable YUN 07/08/2023 no vegetation # ESRD on dialysis MWF - on schedule. consult nephrology - pt had dialysis # HTN - controlled. CPM # GERD - CPM Subjective Date/time seen: 07/11/23 09:03 Interval history: No overnight events. Spiked a fever on and 11. Otherwise feels okay. Blood culture coming back positive again. No new complaints. Review of Systems Review of Systems: All systems reviewed & are unremarkable except as noted in HPI and below (Subjective) Exam Narrative: General physical exam: Patient lying in bed, appears sleepy tired and fatigued, not having any active chest pain Head/eyes: Atraumatic, EOMI, PERRLA ENT: Moist mucous membranes, nasal passages clear Neck: Supple, full range of motion, trachea midline CVS: S1 + S2, regular rate and rhythm, no murmurs Respiratory: Bilaterally decreased air entry in both lung marte, no respiratory distress Abdomen: Soft, non-tender, bowel sounds +ve, no organomegaly Extremities: No clubbing, no cyanosis, no edema, no calf tenderness Musculoskeletal: Moves all, adequate range of motion, no muscle spasms Skin: Warm, dry, no jaundice, no cyanosis Neurological: Awake, alert, cranial nerves II-XII intact, no focal neurological deficits Psychiatric: Normal mood, non suicidal Objective Data Vital Signs Vital Signs: Vital Signs - 24 hr 07/10/23 16:00 07/10/23
--- NOTE | 2023-07-11 09:22 | PCPTNOTE ---
The patient treatment was not able to be completed due to patient out of room for dialysis. Will plan to continue treatment per plan of care.
[2023-07-11] MEDS: EPOETIN ALFA-EPBX 10,000 UNITS/ML VIAL 10000 UNITS IV PUSH (09:52)
[2023-07-11] MEDS: SODIUM CHLORIDE 0.9% IV 1,000 ML 999 ML IV CONT (09:53)
[2023-07-11] MEDS: ceFAZolin 1 GM/NS 50 ML 1 GM/50 ML BAG IVPB (11:15)
[2023-07-11] MEDS: FOLIC ACID 1 MG TABLET PO (11:16)
[2023-07-11] MEDS: THIAMINE HCL 200 MG/2 ML VIAL 100 MG IV PUSH (11:16)
[2023-07-11] MEDS: ENOXAPARIN 30 MG/0.3 ML SYRINGE SUB-Q (11:16)
[2023-07-11] MEDS: PANTOPRAZOLE 40 MG TABLET PO (11:16)
[2023-07-11] MEDS: cloNIDine HCL 0.2 MG TABLET PO ×2 (11:16→17:05)
[2023-07-11] MEDS: allopurinoL 300 MG TABLET PO (11:16)
[2023-07-11] MEDS: SODIUM BICARBONATE TAB 650 MG TABLET PO ×2 (11:16→17:05)
[2023-07-11] MEDS: ATORVASTATIN 40 MG TABLET PO (11:16)
--- NOTE | 2023-07-11 11:16 | P.PNNP_ITS ---
Progress Note: A&P Assessment and Plan (1) End stage renal disease: Code(s): N18.6 - End stage renal disease Status: Chronic Assessment and Plan: * HD under way * continue M/W/F dialysis schedule while hospitalized * He will continue to get dialysis at [facility] under Dr. Hayes (2) Bacteremia: Code(s): R78.81 - Bacteremia Status: Acute Assessment and Plan: * blood cultures with methicillin sensitive Staph aureus * YUN negative for vegentations * ultrasound of AVF negative for abscess * on antibiotic therapy. (3) Pneumonia: Code(s): J18.9 - Pneumonia, unspecified organism Status: Acute Assessment and Plan: * as noted by admission imaging * culture data noted * Antibiotics per hospitalist (4) Hypertension: Code(s): I10 - Essential (primary) hypertension Status: Chronic Assessment and Plan: * reasonable control at this time * follow trend of hemodynamics (5) Anemia: Code(s): D64.9 - Anemia, unspecified Status: Chronic Assessment and Plan: * due to ESRD * Epogen with HD * Hemoglobin 7.9 today. * He will get TRAN as an outpatient as well Will continue to follow. Subjective Date/time seen: 07/11/23 11:16 Interval history: Harrison is feeling okay today. Eager to get out of the hospital. He is on dialysis and tolerating it well. He was seen at 10:30 a.m.. He wants to get off early so he can get home before the weather is bad. This is being arranged. Exam Narrative: General: WD/WN male in NAD Heart: normal S1 and S2; no rub Lungs: clear bilaterally Abdomen: soft, nontender, nondistended, positive bowel sounds Extremities: no cyanosis or clubbing; no edema Skin: No rash Objective Data Vital Signs Vital Signs: Vital Signs - 24 hr 07/10/23 16:00 07/10/23 16:54 07/10/23 17:54 Temperature 99.1 F 99.1 F 100.2 F H Pulse Rate 86 Respiratory Rate 18 Blood Pressure 123/69 Pulse Oximetry 98 07/10/23 21:39 07/11/23 06:17 07/11/23 08:05 Temperature 97.7 F 98.3 F Pulse Rate 69 71 73 Respiratory Rate 18 16 Blood Pressure 142/94 H 129/87 153/92 H Pulse Oximetry 96 97 07/11/23 08:25 07/11/23 07:47 07/11/23 08:30 Temperature 97.5 F L Pulse Rate 71 74 77 Respiratory Rate 18 Blood Pressure 143/88 H 165/91 H 160/94 H Pulse Oximetry 07/11/23 08:45 07/11/23 09:00 07/11/23 09:15 Temperature Pulse Rate 72 72 72 Respiratory Rate Blood Pressure 148/92 H 151/79 H 161/91 H Pulse Oximetry 07/11/23 09:30 07/11/23 09:45 07/11/23 10:00 Temperature Pulse Rate 73 64 66 Respiratory Rate Blood Pressure 147/82 H 150/73 H 155/81 H Pulse Oximetry Intake/Output Intake/Output: Intake & Output 07/08/23 07/09/23 07/10/23 07/11/23 23:59 23:59 23:59 23:59 Intake Total 490 689 1854 350 Output Total 2550 Balance 250 -1630 1352 350 Meds/Results Medications: A
--- NOTE | 2023-07-11 11:16 | PM.PNNEP ---
Progress Note: A&P Assessment and Plan (1) End stage renal disease: Code(s): N18.6 - End stage renal disease Status: Chronic Assessment and Plan: HD under way continue M/W/F dialysis schedule while hospitalized He will continue to get dialysis at [facility] under Dr. Hayes (2) Bacteremia: Code(s): R78.81 - Bacteremia Status: Acute Assessment and Plan: blood cultures with methicillin sensitive Staph aureus YUN negative for vegentations ultrasound of AVF negative for abscess on antibiotic therapy. (3) Pneumonia: Code(s): J18.9 - Pneumonia, unspecified organism Status: Acute Assessment and Plan: as noted by admission imaging culture data noted Antibiotics per hospitalist (4) Hypertension: Code(s): I10 - Essential (primary) hypertension Status: Chronic Assessment and Plan: reasonable control at this time follow trend of hemodynamics (5) Anemia: Code(s): D64.9 - Anemia, unspecified Status: Chronic Assessment and Plan: due to ESRD Epogen with HD Hemoglobin 7.9 today. He will get TRAN as an outpatient as well Will continue to follow. Subjective Date/time seen: 07/11/23 11:16 Interval history: Harrison is feeling okay today. Eager to get out of the hospital. He is on dialysis and tolerating it well. He was seen at 10:30 a.m.. He wants to get off early so he can get home before the weather is bad. This is being arranged. Exam Narrative: General: WD/WN male in NAD Heart: normal S1 and S2; no rub Lungs: clear bilaterally Abdomen: soft, nontender, nondistended, positive bowel sounds Extremities: no cyanosis or clubbing; no edema Skin: No rash Objective Data Vital Signs Vital Signs: Vital Signs - 24 hr 07/10/23 16:00 07/10/23 16:54 07/10/23 17:54 Temperature 99.1 F 99.1 F 100.2 F H Pulse Rate 86 Respiratory Rate 18 Blood Pressure 123/69 Pulse Oximetry 98 07/10/23 21:39 07/11/23 06:17 07/11/23 08:05 Temperature 97.7 F 98.3 F Pulse Rate 69 71 73 Respiratory Rate 18 16 Blood Pressure 142/94 H 129/87 153/92 H Pulse Oximetry 96 97 07/11/23 08:25 07/11/23 07:47 07/11/23 08:30 Temperature 97.5 F L Pulse Rate 71 74 77 Respiratory Rate 18 Blood Pressure 143/88 H 165/91 H 160/94 H Pulse Oximetry 07/11/23 08:45 07/11/23 09:00 07/11/23 09:15 Temperature Pulse Rate 72 72 72 Respiratory Rate Blood Pressure 148/92 H 151/79 H 161/91 H Pulse Oximetry 07/11/23 09:30 07/11/23 09:45 07/11/23 10:00 Temperature Pulse Rate 73 64 66 Respiratory Rate Blood Pressure 147/82 H 150/73 H 155/81 H Pulse Oximetry Intake/Output Intake/Output: Intake & Output 07/08/23 07/09/23 07/10/23 07/11/23 23:59 23:59 23:59 23:59 Intake Total 199 150 0242 350 Output Total 2550 Balance 250 -1630 1352 350 Meds/Results Medications: Active Medications Generic Name Dose Route Start Last Admin Trade Name Freq PRN Reason Stop Dose Admin Acetaminophen 650 mg 07/03/23 00:25 07/10/23 16:54 Acetaminophen 325 Mg Tablet PO 650 mg Q4H PRN Administration Mild Pain (1-3) or Fever Al Hydrox/Mg Hydrox/Simethicone 30 ml 07/03/23 00:25 Mag Hydrox/Al Hydrox/Simeth 30 Ml Udc PO QID PRN Dyspepsia Allopurinol 300 mg 07/03/23 09:00 07/10/23 08:04 Allopurinol 300 Mg Tablet PO 300 mg DAILY SHERRIE Administration Atorvastatin Calcium 40 mg 07/03/23 09:00 07/10/23 08:04 Atorvastatin 40 Mg Tablet PO 40 mg DAILY SHERRIE Administration Clonidine HCl 0.2 mg 07/03/23 09:00 07/10/23 16:45 Clonidine Hcl 0.2 Mg Tablet PO 0.2 mg BID SHERRIE Administration Enoxaparin Sodium 30 mg 07/03/23 09:00 07/10/23 08:10 Enoxaparin 30 Mg/0.3 Ml Syringe SUB-Q 30 mg DAILY SHERRIE Administration Epoetin Huan-epbx 10,000 units 07/11/23 20:47 07/11/23 09:52 Epoetin Huan-Epbx 10,000 Uni
[2023-07-11] MEDS: SEVELAMER CARBONATE 800 MG TABLET 2400 MG PO ×2 (11:17→17:04)
--- NOTE | 2023-07-11 15:11 | PCPTNOTE ---
Patient declined PT this afternoon stating I have been up a few times and I just want to lay here for a while. I am doing just fine but due to the infection I will be staying in the hospital for a few more days. PT will continue to follow per plan of care.
[2023-07-12 06:00] VITALS: BP 149/90; PULSE 72; RESP 16; TEMP 36.7; O2SAT 97
[2023-07-12 06:51] LABS: Basophils Absolute Auto 0.1 K/mm3 (0.0-0.1); Basophils Percent Auto 0.5 % (0.2-1.2); Eosinophils Absolute Auto 0.2 K/mm3 (0-0.3); Eosinophils Percent Auto 2.2 % (0-4.4); Hematocrit 25.8 % (42.0-52.0); Lymphocytes Absolute Auto 1.69 K/mm3 (0.9-3.2); Lymphocytes Percent Auto 17.5 % (18.3-44.2); Mean Corpuscular Hemoglobin 32.8 pg (26-34); Mean Corpuscular Volume 105.7 fl (80-100); Mean Platelet Volume 11.1 fl (7.4-10.4); Monocytes Absolute Auto 0.7 K/mm3 (0.1-0.6); Monocytes Percent Auto 7.5 % (2.6-8.5); Neutrophils Absolute Auto 6.9 K/mm3 (1.3-6.7); Neutrophils Percent Auto 71.3 % (45.5-73.1); Platelet Count Result 267 k/mm3 (150-375); Red Blood Count 2.44 M/mm3 (4.6-6.20); Red Cell Distribution Width 16.4 % (11.5-14.5); White Blood Count 9.7 K/mm3 (4.5-10.0)
[2023-07-12 07:18] LABS: Alanine Aminotransferase 7 U/L (6-50); Albumin Level 3.4 g/dL (3.5-5.1); Alkaline Phosphatase 91 U/L (38-126); Anion Gap 10 mmol/L (8-16); Aspartate Amino Transferase 30 U/L (17-59); Bilirubin,Total 0.5 mg/dL (0.2-1.3); Blood Urea Nitrogen 44 mg/dL (9-20); Calcium 9.2 mg/dL (8.4-10.2); Carbon Dioxide 31 mmol/L (22-30); Chloride 94 mmol/L (98-107); Estimated CRCL calculation 11 ml/min; Estimated Glomerular Filt Rate 9; Glucose 106 mg/dL (65-110); Potassium 3.9 mmol/L (3.4-5.0); Sodium 135 mmol/L (137-145)
[2023-07-12 07:51] LABS: Hypochromasia 1+ (NORMAL); Macrocytosis 1+ (NORMAL); Platelet Estimate Adequate (Adequate); Schistocytes None Seen (NORMAL)
[2023-07-12] MEDS: ATORVASTATIN 40 MG TABLET PO (08:32)
[2023-07-12] MEDS: SODIUM BICARBONATE TAB 650 MG TABLET PO ×2 (08:32→16:34)
[2023-07-12] MEDS: SEVELAMER CARBONATE 800 MG TABLET 2400 MG PO ×3 (08:32→16:33)
[2023-07-12] MEDS: ceFAZolin 1 GM/NS 50 ML 1 GM/50 ML BAG IVPB (08:32)
[2023-07-12] MEDS: FOLIC ACID 1 MG TABLET PO (08:32)
[2023-07-12] MEDS: PANTOPRAZOLE 40 MG TABLET PO (08:32)
[2023-07-12] MEDS: allopurinoL 300 MG TABLET PO (08:32)
[2023-07-12] MEDS: THIAMINE HCL 200 MG/2 ML VIAL 100 MG IV PUSH (08:33)
[2023-07-12] MEDS: cloNIDine HCL 0.2 MG TABLET PO ×2 (08:33→16:34)
[2023-07-12] MEDS: ENOXAPARIN 30 MG/0.3 ML SYRINGE SUB-Q (08:38)
--- NOTE | 2023-07-12 10:02 | P.PNNP_ITS ---
Progress Note: A&P Assessment and Plan (1) End stage renal disease: Code(s): N18.6 - End stage renal disease Status: Chronic Assessment and Plan: * HD due on Friday. * continue M/W/F dialysis schedule while hospitalized * He will continue to get dialysis at [facility] under Dr. Hayes (2) Bacteremia: Code(s): R78.81 - Bacteremia Status: Acute Assessment and Plan: * blood cultures with methicillin sensitive Staph aureus * YUN negative for vegentations * ultrasound of AVF negative for abscess . * In light of the repeat positive blood cultures will repeat the ultrasound. * on antibiotic therapy. * He may need prolonged antibiotics. (3) Pneumonia: Code(s): J18.9 - Pneumonia, unspecified organism Status: Acute Assessment and Plan: * as noted by admission imaging * culture data noted * Antibiotics per hospitalist (4) Hypertension: Code(s): I10 - Essential (primary) hypertension Status: Chronic Assessment and Plan: * Systolic ranging 106-149. * follow trend of hemodynamics (5) Anemia: Code(s): D64.9 - Anemia, unspecified Status: Chronic Assessment and Plan: * due to ESRD * Epogen with HD * Hemoglobin 8 today. * Likely reduced sensitivity to Epogen because of the infection * He will get TRAN as an outpatient as well Will continue to follow. Subjective Date/time seen: 07/12/23 10:02 Interval history: patient is alert and feels good. Blood cultures on the 9 were positive 1/2. More blood cultures drawn this morning which are pending. The patient has no fevers or chills. He feels okay. No pain around the dialysis graft. Exam Narrative: General: WD/WN male in NAD Heart: normal S1 and S2; no rub Lungs: clear bilaterally Abdomen: soft, nontender, nondistended, positive bowel sounds Extremities: no cyanosis or clubbing; no edema . Graft looks okay. No fluctuance discomfort or redness noted. Skin: No rash Objective Data Vital Signs Vital Signs: Vital Signs - 24 hr 07/11/23 10:15 07/11/23 10:31 07/11/23 10:37 Temperature Pulse Rate 72 60 81 Respiratory Rate Blood Pressure 161/91 H 163/81 H 167/72 H Pulse Oximetry Oxygen Delivery 07/11/23 10:44 07/11/23 14:00 07/11/23 22:00 Temperature 98.1 F 99.4 F 97.9 F Pulse Rate 81 93 77 Respiratory Rate 18 18 14 Blood Pressure 167/72 H 106/59 L 126/78 Pulse Oximetry 97 96 Oxygen Delivery 07/12/23 06:00 07/12/23 08:00 Temperature 98.0 F Pulse Rate 72 Respiratory Rate 16 Blood Pressure 149/90 H Pulse Oximetry 97 Oxygen Delivery Room Air Intake/Output Intake/Output: Intake & Output 07/09/23 07/10/23 07/11/23 07/12/23 23:59 23:59 23:59 23:59 Intake Total 920 1352 1186 1330 Output Total 2550 3000 Balance -1630 1352 -1814 1330 Meds/Results Medications: Active Medications Generic Name Dose Route Start Last Admin Trade Name Freq PRN Reason Stop Dose Admin Acetaminophen 650 mg 07/03/23 00:25
--- NOTE | 2023-07-12 10:02 | PM.PNNEP ---
Progress Note: A&P Assessment and Plan (1) End stage renal disease: Code(s): N18.6 - End stage renal disease Status: Chronic Assessment and Plan: HD due on Friday. continue M/W/ dialysis schedule while hospitalized He will continue to get dialysis at [facility] under Dr. Hayes (2) Bacteremia: Code(s): R78.81 - Bacteremia Status: Acute Assessment and Plan: blood cultures with methicillin sensitive Staph aureus YUN negative for vegentations ultrasound of AVF negative for abscess . In light of the repeat positive blood cultures will repeat the ultrasound. on antibiotic therapy. He may need prolonged antibiotics. (3) Pneumonia: Code(s): J18.9 - Pneumonia, unspecified organism Status: Acute Assessment and Plan: as noted by admission imaging culture data noted Antibiotics per hospitalist (4) Hypertension: Code(s): I10 - Essential (primary) hypertension Status: Chronic Assessment and Plan: Systolic ranging 106-149. follow trend of hemodynamics (5) Anemia: Code(s): D64.9 - Anemia, unspecified Status: Chronic Assessment and Plan: due to ESRD Epogen with HD Hemoglobin 8 today. Likely reduced sensitivity to Epogen because of the infection He will get TRAN as an outpatient as well Will continue to follow. Subjective Date/time seen: 07/12/23 10:02 Interval history: patient is alert and feels good. Blood cultures on the were positive 1/2. More blood cultures drawn this morning which are pending. The patient has no fevers or chills. He feels okay. No pain around the dialysis graft. Exam Narrative: General: WD/WN male in NAD Heart: normal S1 and S2; no rub Lungs: clear bilaterally Abdomen: soft, nontender, nondistended, positive bowel sounds Extremities: no cyanosis or clubbing; no edema . Graft looks okay. No fluctuance discomfort or redness noted. Skin: No rash Objective Data Vital Signs Vital Signs: Vital Signs - 24 hr 07/11/23 10:15 07/11/23 10:31 07/11/23 10:37 Temperature Pulse Rate 72 60 81 Respiratory Rate Blood Pressure 161/91 H 163/81 H 167/72 H Pulse Oximetry Oxygen Delivery 07/11/23 10:44 07/11/23 14:00 07/11/23 22:00 Temperature 98.1 F 99.4 F 97.9 F Pulse Rate 81 93 77 Respiratory Rate 18 18 14 Blood Pressure 167/72 H 106/59 L 126/78 Pulse Oximetry 97 96 Oxygen Delivery 07/12/23 06:00 07/12/23 08:00 Temperature 98.0 F Pulse Rate 72 Respiratory Rate 16 Blood Pressure 149/90 H Pulse Oximetry 97 Oxygen Delivery Room Air Intake/Output Intake/Output: Intake & Output 07/09/23 07/10/23 07/11/23 07/12/23 23:59 23:59 23:59 23:59 Intake Total 920 1352 1186 1330 Output Total 2550 3000 Balance -1630 1352 -1814 1330 Meds/Results Medications: Active Medications Generic Name Dose Route Start Last Admin Trade Name Freq PRN Reason Stop Dose Admin Acetaminophen 650 mg 07/03/23 00:25 07/10/23 16:54 Acetaminophen 325 Mg Tablet PO 650 mg Q4H PRN Administration Mild Pain (1-3) or Fever Al Hydrox/Mg Hydrox/Simethicone 30 ml 07/03/23 00:25 Mag Hydrox/Al Hydrox/Simeth 30 Ml Udc PO QID PRN Dyspepsia Allopurinol 300 mg 07/03/23 09:00 07/12/23 08:32 Allopurinol 300 Mg Tablet PO 300 mg DAILY SHERRIE Administration Atorvastatin Calcium 40 mg 07/03/23 09:00 07/12/23 08:32 Atorvastatin 40 Mg Tablet PO 40 mg DAILY SHERRIE Administration Clonidine HCl 0.2 mg 07/03/23 09:00 07/12/23 08:33 Clonidine Hcl 0.2 Mg Tablet PO 0.2 mg BID SHERRIE Administration Enoxaparin Sodium 30 mg 07/03/23 09:00 07/12/23 08:38 Enoxaparin 30 Mg/0.3 Ml Syringe SUB-Q 30 mg DAILY SHERRIE Administration Ergocalciferol 50,000 units 07/07/23 09:00 07/07/23 13:45 Ergocalciferol 50,000 Units Capsule PO 50,000 units WEEKLY SHERRIE Administration
--- NOTE | 2023-07-12 11:54 | PM.IMPN ---
Progress Note: A&P Assessment and Plan (1) Bacteremia: Code(s): R78.81 - Bacteremia Status: Acute (2) Anemia: Code(s): D64.9 - Anemia, unspecified Status: Chronic (3) Hypertension: Code(s): I10 - Essential (primary) hypertension Status: Chronic (4) End stage renal disease: Code(s): N18.6 - End stage renal disease Status: Chronic (5) Alcohol withdrawal: Code(s): F10.939 - Alcohol use, unspecified with withdrawal, unspecified Status: Acute (6) Abnormal CT of the chest: Code(s): R93.89 - Abnormal findings on diagnostic imaging of other specified body structures Status: Acute (7) Elevated troponin: Code(s): R79.89 - Other specified abnormal findings of blood chemistry Status: Acute (8) Chronic alcohol use: Code(s): F10.90 - Alcohol use, unspecified, uncomplicated Status: Acute (9) Pneumonia: Code(s): J18.9 - Pneumonia, unspecified organism Status: Acute Plan 58M w/ PMH alcohol abuse, GERD, HLD, HTN, ESRD on dialysis MWF presents with shaking and chest soreness admitted on 07/02/23. # bacteremia - 07/02 MSSA x2 - 07/07 d/c ceftriaxone on iv cefazolin for double MSSA coverage - patient does not appear toxic/septic. his AV fistula does not appear infected, LUE negative - YUN was negative no vegetations found -remains intermittently febrile. Nine hundred twenty-four came back positive again growing Staph aureus Will add daptomycin along with cefazolin Ultrasound left fistula with no signs of abscess Plan for cefazolin with intermittent dialysis Added on daptomycin due to persistent bacteremia with MSSA Will get chest abdomen pelvis CT to further evaluate for source # tremors - this is his presenting complaint. resolved. Was either due to alcohol withdrawal or his bacteremia # CAP - received 5 days of ceftriaxone and azithromycin. Now on vanc/ cefazolin for bacteremia - 12mm mass in left lung. Pneumonia? Repeat CT 1 month after treatment of pneumonia # alcohol abuse with possible alcohol withdrawal - was questionable on admission. He had presenting complaint of tremors. At some point he was sensitive to light. CIWA was only as high as 6. Librium has since been DC. Continue CIWA - counseled. pt wants to change from 2 liters of wine to 1 liter of wine per day but no less. care coordination consultation - PT/OT - thrombocytopenia, likely 2/2 to cirrhosis/alcohol. - transaminitis likely secondary to alcohol use. continue to monitor # elevated troponin - flat. cont to trend. chest pain on presentation described as atypical. Has since resolved. EKG w/o acute ischemia TTE 07/05/2023 unremarkable YUN 07/08/2023 no vegetation # ESRD on dialysis MWF - on schedule. consult nephrology - pt had dialysis # HTN - controlled. CPM # GERD - CPM Subjective Date/time seen: 07/12/23 11:54 Interval history: No overnight events. Feels okay. Remains afebrile. No nausea vomiting. Review of Systems Review of Systems: All systems reviewed & are unremarkable except as noted in HPI and below (Subjective) Exam Narrative: General physical exam: Patient lying in bed, appears sleepy tired and fatigued, not having any active chest pain Head/eyes: Atraumatic, EOMI, PERRLA ENT: Moist mucous membranes, nasal passages clear Neck: Supple, full range of motion, trachea midline CVS: S1 + S2, regular rate and rhythm, no murmurs Respiratory: Bilaterally decreased air entry in both lung marte, no respiratory distress Abdomen: Soft, non-tender, bowel sounds +ve, no organomegaly Extremities: No clubbing, no cyanosis, no edema, no calf tenderness Musculoskeletal: Moves all, adequate range of motion, no muscle spasms Skin: Warm, dry, no jaundice, no cyanosis Neurological: Awake, alert, cranial nerves II-XII intact, no focal neurological deficits Psychiatric: Normal mood, non suicidal Objective Data Vital Signs
[2023-07-12 14:00] VITALS: BP 122/66; PULSE 74; RESP 16; TEMP 36.7; O2SAT 97
[2023-07-12] MEDS: HYDROCORTISONE 1% 30 GM CREAM 1 APPLIC TOPICAL (20:49)
[2023-07-12 22:00] VITALS: BP 125/73; PULSE 75; RESP 14; TEMP 36.7; O2SAT 98
[2023-07-13 04:45] VITALS: BP 132/88; PULSE 69; RESP 16; TEMP 36; O2SAT 96
[2023-07-13] MEDS: SEVELAMER CARBONATE 800 MG TABLET 2400 MG PO ×3 (07:56→16:57)
[2023-07-13] MEDS: SODIUM BICARBONATE TAB 650 MG TABLET PO ×2 (08:16→16:57)
[2023-07-13] MEDS: allopurinoL 300 MG TABLET PO (08:16)
[2023-07-13] MEDS: cloNIDine HCL 0.2 MG TABLET PO ×2 (08:16→16:57)
[2023-07-13] MEDS: PANTOPRAZOLE 40 MG TABLET PO (08:16)
[2023-07-13] MEDS: ATORVASTATIN 40 MG TABLET PO (08:16)
[2023-07-13] MEDS: ceFAZolin 1 GM/NS 50 ML 1 GM/50 ML BAG IVPB (08:16)
[2023-07-13] MEDS: FOLIC ACID 1 MG TABLET PO (08:16)
[2023-07-13] MEDS: ENOXAPARIN 30 MG/0.3 ML SYRINGE SUB-Q (08:16)
[2023-07-13] MEDS: THIAMINE HCL 200 MG/2 ML VIAL 100 MG IV PUSH (08:17)
[2023-07-13] MEDS: HYDROCORTISONE 1% 30 GM CREAM 1 APPLIC TOPICAL ×2 (08:25→20:12)
--- NOTE | 2023-07-13 09:21 | P.PNNP_ITS ---
Progress Note: A&P Assessment and Plan (1) End stage renal disease: Code(s): N18.6 - End stage renal disease Status: Chronic Assessment and Plan: * HD due on Friday. * continue M/W/F dialysis schedule while hospitalized * He will continue to get dialysis at [facility] under Dr. Hayes (2) Bacteremia: Code(s): R78.81 - Bacteremia Status: Acute Assessment and Plan: * blood cultures with methicillin sensitive Staph aureus * YUN negative for vegentations * ultrasound of AVF negative for abscess . * In light of the repeat positive blood cultures will repeat the ultrasound. this is not done yet. * on Cefazolin and daptomycin * He may need prolonged antibiotics. (3) Pneumonia: Code(s): J18.9 - Pneumonia, unspecified organism Status: Acute Assessment and Plan: * as noted by admission imaging * culture data noted * Antibiotics per hospitalist (4) Hypertension: Code(s): I10 - Essential (primary) hypertension Status: Chronic Assessment and Plan: * Systolic ranging 122-149. * follow trend of hemodynamics (5) Anemia: Code(s): D64.9 - Anemia, unspecified Status: Chronic Assessment and Plan: * due to ESRD * Epogen with HD * Hemoglobin 8 yesterday. * Likely reduced sensitivity to Epogen because of the infection * He will get TRAN as an outpatient as well Will continue to follow. Subjective Date/time seen: 07/13/23 09:21 Interval history: patient is feeling okay. No chest pain or shortness of breath Exam Narrative: General: WD/WN male in NAD Heart: normal S1 and S2; no rub Lungs: clear bilaterally Abdomen: soft, nontender, nondistended, positive bowel sounds Extremities: no cyanosis or clubbing; no edema . Graft looks okay. Skin: No rash or subcu nodules Objective Data Vital Signs Vital Signs: Vital Signs - 24 hr 07/12/23 14:00 07/12/23 22:00 07/13/23 04:45 Temperature 98.1 F 98.1 F 96.8 F L Pulse Rate 74 75 69 Respiratory Rate 16 14 16 Blood Pressure 122/66 125/73 132/88 Pulse Oximetry 97 98 96 Intake/Output Intake/Output: Intake & Output 07/10/23 07/11/23 07/12/23 07/13/23 23:59 23:59 23:59 23:59 Intake Total 1356 1615 2352 250 Output Total 3000 Balance 1352 -9086 2352 250 Meds/Results Medications: Active Medications Generic Name Dose Route Start Last Admin Trade Name Freq PRN Reason Stop Dose Admin Acetaminophen 650 mg 07/03/23 00:25 07/10/23 16:54 Acetaminophen 325 Mg Tablet PO 650 mg Q4H PRN Administration Mild Pain (1-3) or Fever Al Hydrox/Mg Hydrox/Simethicone 30 ml 07/03/23 00:25 Mag Hydrox/Al Hydrox/Simeth 30 Ml Udc PO QID PRN Dyspepsia Allopurinol 300 mg 07/03/23 09:00 07/13/23 08:16 Allopurinol 300 Mg Tablet PO 300 mg DAILY SHERRIE Administration Atorvastatin Calcium 40 mg 07/03/23 09:00 07/13/23 08:16 Atorvastatin 40 Mg Tablet PO 40 mg DAILY SHERRIE Administration Clonidine HCl 0.2 mg 07/03/23 09:00 07/13/23 08:16 Clonidine Hcl 0.2 Mg Tablet PO 0.2 mg BID SHERRIE
--- NOTE | 2023-07-13 09:21 | PM.PNNEP ---
Progress Note: A&P Assessment and Plan (1) End stage renal disease: Code(s): N18.6 - End stage renal disease Status: Chronic Assessment and Plan: HD due on Friday. continue M/W/ dialysis schedule while hospitalized He will continue to get dialysis at [facility] under Dr. Hayes (2) Bacteremia: Code(s): R78.81 - Bacteremia Status: Acute Assessment and Plan: blood cultures with methicillin sensitive Staph aureus YUN negative for vegentations ultrasound of AVF negative for abscess . In light of the repeat positive blood cultures will repeat the ultrasound. this is not done yet. on Cefazolin and daptomycin He may need prolonged antibiotics. (3) Pneumonia: Code(s): J18.9 - Pneumonia, unspecified organism Status: Acute Assessment and Plan: as noted by admission imaging culture data noted Antibiotics per hospitalist (4) Hypertension: Code(s): I10 - Essential (primary) hypertension Status: Chronic Assessment and Plan: Systolic ranging 122-149. follow trend of hemodynamics (5) Anemia: Code(s): D64.9 - Anemia, unspecified Status: Chronic Assessment and Plan: due to ESRD Epogen with HD Hemoglobin 8 yesterday. Likely reduced sensitivity to Epogen because of the infection He will get TRAN as an outpatient as well Will continue to follow. Subjective Date/time seen: 07/13/23 09:21 Interval history: patient is feeling okay. No chest pain or shortness of breath Exam Narrative: General: WD/WN male in NAD Heart: normal S1 and S2; no rub Lungs: clear bilaterally Abdomen: soft, nontender, nondistended, positive bowel sounds Extremities: no cyanosis or clubbing; no edema . Graft looks okay. Skin: No rash or subcu nodules Objective Data Vital Signs Vital Signs: Vital Signs - 24 hr 07/12/23 14:00 07/12/23 22:00 07/13/23 04:45 Temperature 98.1 F 98.1 F 96.8 F L Pulse Rate 74 75 69 Respiratory Rate 16 14 16 Blood Pressure 122/66 125/73 132/88 Pulse Oximetry 97 98 96 Intake/Output Intake/Output: Intake & Output 07/10/23 07/11/23 07/12/23 07/13/23 23:59 23:59 23:59 23:59 Intake Total 1352 1186 2352 250 Output Total 3000 Balance 1352 -5606 2352 250 Meds/Results Medications: Active Medications Generic Name Dose Route Start Last Admin Trade Name Freq PRN Reason Stop Dose Admin Acetaminophen 650 mg 07/03/23 00:25 07/10/23 16:54 Acetaminophen 325 Mg Tablet PO 650 mg Q4H PRN Administration Mild Pain (1-3) or Fever Al Hydrox/Mg Hydrox/Simethicone 30 ml 07/03/23 00:25 Mag Hydrox/Al Hydrox/Simeth 30 Ml Udc PO QID PRN Dyspepsia Allopurinol 300 mg 07/03/23 09:00 07/13/23 08:16 Allopurinol 300 Mg Tablet PO 300 mg DAILY SHERRIE Administration Atorvastatin Calcium 40 mg 07/03/23 09:00 07/13/23 08:16 Atorvastatin 40 Mg Tablet PO 40 mg DAILY SHERRIE Administration Clonidine HCl 0.2 mg 07/03/23 09:00 07/13/23 08:16 Clonidine Hcl 0.2 Mg Tablet PO 0.2 mg BID SHERRIE Administration Enoxaparin Sodium 30 mg 07/03/23 09:00 07/13/23 08:16 Enoxaparin 30 Mg/0.3 Ml Syringe SUB-Q 30 mg DAILY SHERRIE Administration Ergocalciferol 50,000 units 07/07/23 09:00 07/07/23 13:45 Ergocalciferol 50,000 Units Capsule PO 50,000 units WEEKLY SHERRIE Administration Folic Acid 1 mg 07/03/23 09:00 07/13/23 08:16 Folic Acid 1 Mg Tablet PO 1 mg DAILY SHERRIE Administration Hydralazine HCl 25 mg 07/09/23 11:51 07/09/23 12:03 Hydralazine Hcl 25 Mg Tablet PO 25 mg TID PRN Administration Hypertension Hydrocortisone 1 applic 07/12/23 21:00 07/13/23 08:25 Hydrocortisone 1% 30 Gm Cream TOPICAL 1 applic Q12HR SHERRIE Administration Albumin Human 50 mls @ 999 mls/hr 07/04/23 05:46 Albutein IVPB 08/03/23 05:45 Q10M PRN HYPOTENSION Cefazolin Sodium 1 gm
--- NOTE | 2023-07-13 12:06 | PM.IMPN ---
Progress Note: A&P Assessment and Plan (1) Bacteremia: Code(s): R78.81 - Bacteremia Status: Acute (2) Anemia: Code(s): D64.9 - Anemia, unspecified Status: Chronic (3) Hypertension: Code(s): I10 - Essential (primary) hypertension Status: Chronic (4) End stage renal disease: Code(s): N18.6 - End stage renal disease Status: Chronic (5) Alcohol withdrawal: Code(s): F10.939 - Alcohol use, unspecified with withdrawal, unspecified Status: Acute (6) Abnormal CT of the chest: Code(s): R93.89 - Abnormal findings on diagnostic imaging of other specified body structures Status: Acute (7) Elevated troponin: Code(s): R79.89 - Other specified abnormal findings of blood chemistry Status: Acute (8) Chronic alcohol use: Code(s): F10.90 - Alcohol use, unspecified, uncomplicated Status: Acute (9) Pneumonia: Code(s): J18.9 - Pneumonia, unspecified organism Status: Acute Plan 58M w/ PMH alcohol abuse, GERD, HLD, HTN, ESRD on dialysis MWF presents with shaking and chest soreness admitted on 07/02/23. # bacteremia - 07/02 MSSA x2 - 07/07 d/c ceftriaxone on iv cefazolin for double MSSA coverage - patient does not appear toxic/septic. his AV fistula does not appear infected, LUE negative - YUN was negative no vegetations found -remains intermittently febrile. Nine hundred twenty-four came back positive again growing Staph aureus Will add daptomycin along with cefazolin Ultrasound left fistula with no signs of abscess Plan for cefazolin with intermittent dialysis Added on daptomycin due to persistent bacteremia with MSSA CT chest abdomen pelvis reviewed right middle lobe pulmonary nodule mildly increased and more confluent and focal consolidation superior segment left lower lobe mildly improved additional 5 mm left lower lobe pulmonary nodule which looks benign needs to be followed up as an outpatient basis with repeat scan #tremors - this is his presenting complaint. resolved. Was either due to alcohol withdrawal or his bacteremia # CAP - received 5 days of ceftriaxone and azithromycin. Now on vanc/ cefazolin for bacteremia - 12mm mass in left lung. Pneumonia? Repeat CT 1 month after treatment of pneumonia # alcohol abuse with possible alcohol withdrawal - was questionable on admission. He had presenting complaint of tremors. At some point he was sensitive to light. CIWA was only as high as 6. Librium has since been DC. Continue CIWA - counseled. pt wants to change from 2 liters of wine to 1 liter of wine per day but no less. care coordination consultation - PT/OT - thrombocytopenia, likely 2/2 to cirrhosis/alcohol. - transaminitis likely secondary to alcohol use. continue to monitor # elevated troponin - flat. cont to trend. chest pain on presentation described as atypical. Has since resolved. EKG w/o acute ischemia TTE 07/05/2023 unremarkable YUN 07/08/2023 no vegetation # ESRD on dialysis MWF - on schedule. consult nephrology - pt had dialysis # HTN - controlled. CPM # GERD - CPM Subjective Date/time seen: 07/13/23 12:06 Interval history: Remains afebrile. CT reviewed with the patient no new complaints. Review of Systems Review of Systems: All systems reviewed & are unremarkable except as noted in HPI and below (Subjective) Exam Narrative: General physical exam: Patient lying in bed, appears sleepy tired and fatigued, not having any active chest pain Head/eyes: Atraumatic, EOMI, PERRLA ENT: Moist mucous membranes, nasal passages clear Neck: Supple, full range of motion, trachea midline CVS: S1 + S2, regular rate and rhythm, no murmurs Respiratory: Bilaterally decreased air entry in both lung marte, no respiratory distress Abdomen: Soft, non-tender, bowel sounds +ve, no organomegaly Extremities: No clubbing, no cyanosis, no edema, no calf tenderness Musculoskeletal: Moves all, adequate r
[2023-07-13 14:00] VITALS: BP 148/87; PULSE 68; RESP 12; TEMP 36.4; O2SAT 100
[2023-07-13 21:08] VITALS: BP 130/84; PULSE 66; RESP 18; TEMP 36.4; O2SAT 99
[2023-07-14] VITALS (19 sets, daily range): BP systolic 97–159; BP diastolic 52–95; PULSE 68–79; RESP 16–18; TEMP 36.5–37.5; O2SAT 97–100
[2023-07-14 06:27] LABS: Basophils Absolute Auto 0.1 K/mm3 (0.0-0.1); Basophils Percent Auto 0.9 % (0.2-1.2); Eosinophils Absolute Auto 0.2 K/mm3 (0-0.3); Eosinophils Percent Auto 2.4 % (0-4.4); Hematocrit 28.3 % (42.0-52.0); Hemoglobin 9.1 g/dL (14.0-18.0); Immature Granulocyte Percent A 1.1 % (0-0.5); Lymphocytes Absolute Auto 1.76 K/mm3 (0.9-3.2); Lymphocytes Percent Auto 18.9 % (18.3-44.2); Mean Corpuscular HGB Conc 32.2 g/dl (32-36); Mean Corpuscular Hemoglobin 33.1 pg (26-34); Mean Corpuscular Volume 102.9 fl (80-100); Mean Platelet Volume 10.1 fl (7.4-10.4); Monocytes Absolute Auto 0.5 K/mm3 (0.1-0.6); Neutrophils Absolute Auto 6.7 K/mm3 (1.3-6.7); Neutrophils Percent Auto 71.7 % (45.5-73.1); Platelet Count Result 406 k/mm3 (150-375); Red Blood Count 2.75 M/mm3 (4.6-6.20); White Blood Count 9.3 K/mm3 (4.5-10.0)
[2023-07-14 06:41] LABS: Albumin Level 3.9 g/dL (3.5-5.1); Anion Gap 12 mmol/L (8-16); Blood Urea Nitrogen 65 mg/dL (9-20); Calcium 9.7 mg/dL (8.4-10.2); Carbon Dioxide 29 mmol/L (22-30); Chloride 95 mmol/L (98-107); Estimated CRCL calculation 9 ml/min; Estimated Glomerular Filt Rate 7; Glucose 100 mg/dL (65-110); Phosphorus 3.8 mg/dL (2.5-4.5); Potassium 3.8 mmol/L (3.4-5.0); Sodium 136 mmol/L (137-145)
[2023-07-14] MEDS: SEVELAMER CARBONATE 800 MG TABLET 2400 MG PO ×3 (07:39→16:56)
[2023-07-14] MEDS: cloNIDine HCL 0.2 MG TABLET PO ×2 (07:40→16:56)
--- NOTE | 2023-07-14 08:45 | PC.NURSE ---
To dialysis via bed.
--- NOTE | 2023-07-14 10:00 | PM.PNNEP ---
Progress Note: A&P Assessment and Plan (1) End stage renal disease: Code(s): N18.6 - End stage renal disease Status: Chronic Assessment and Plan: HD today continue M/W/F dialysis schedule while hospitalized follow electrolytes, volume status, and clearance follows with Dr. Hayes at [facility] (2) Bacteremia: Code(s): R78.81 - Bacteremia Status: Acute Assessment and Plan: blood cultures with methicillin sensitive Staphylococcus aureus YUN negative for vegetations ultrasound of AVF negative for abscess repeat cultures (07/12) negative to date on antibiotic therapy (3) Pneumonia: Code(s): J18.9 - Pneumonia, unspecified organism Status: Acute Assessment and Plan: as noted by admission imaging culture data noted completed course of antibiotics for this issue (4) Hypertension: Code(s): I10 - Essential (primary) hypertension Status: Chronic Assessment and Plan: reasonable control at this time follow trend of hemodynamics (5) Anemia: Code(s): D64.9 - Anemia, unspecified Status: Chronic Assessment and Plan: due to ESRD Epogen with HD follow trend of H/H Will continue to follow. Subjective Date/time seen: 07/14/23 10:00 Interval history: Follow-up for end stage renal disease on hemodialysis. Chart reviewed since last seen; tolerating hemodialysis treatment at the time of my visit (seen on HD at 09:50AM); no apparent distress noted currently; no other issues/events overnight or earlier this morning; hopes to be going home soon; otherwise, feels reasonably well. Exam Narrative: General: WD/WN male in NAD Heart: normal S1 and S2; no rub Lungs: clear breath sounds Abdomen: soft, nontender, nondistended, positive bowel sounds Extremities: no cyanosis or clubbing; no edema Skin: warm and intact Objective Data Vital Signs Vital Signs: Vital Signs Temp Pulse Resp BP Pulse Ox O2 Del Method O2 Flow Rate 07/14/23 10:00 78 98/52 L 07/14/23 09:45 73 105/55 L 07/14/23 09:30 76 105/59 L 07/14/23 09:15 74 117/64 07/14/23 09:08 73 119/67 07/14/23 08:57 98.1 F 77 18 125/69 100 07/14/23 08:57 0 07/14/23 08:00 Room Air 07/14/23 05:57 98.4 F 71 18 159/90 H 99 07/13/23 21:08 97.6 F 66 18 130/84 99 07/13/23 14:00 97.6 F 68 12 148/87 H 100 Intake/Output Intake/Output: Intake & Output 07/11/23 07/12/23 07/13/23 07/14/23 23:59 23:59 23:59 23:59 Intake Total 1186 2352 1090 320 Output Total 3000 Balance -1814 2352 1090 320 Meds/Results Medications: Active Medications Generic Name Dose Route Start Last Admin Trade Name Freq PRN Reason Stop Dose Admin Acetaminophen 650 mg 07/03/23 00:25 07/10/23 16:54 Acetaminophen 325 Mg Tablet PO 650 mg Q4H PRN Administration Mild Pain (1-3) or Fever Al Hydrox/Mg Hydrox/Simethicone 30 ml 07/03/23 00:25 Mag Hydrox/Al Hydrox/Simeth 30 Ml Udc PO QID PRN Dyspepsia Allopurinol 300 mg 07/03/23 09:00 07/13/23 08:16 Allopurinol 300 Mg Tablet PO 300 mg DAILY SHERRIE Administration Atorvastatin Calcium 40 mg 07/03/23 09:00 07/13/23 08:16 Atorvastatin 40 Mg Tablet PO 40 mg DAILY SHERRIE Administration Clonidine HCl 0.2 mg 07/03/23 09:00 07/14/23 07:40 Clonidine Hcl 0.2 Mg Tablet PO 0.2 mg BID SHERRIE Administration Enoxaparin Sodium 30 mg 07/03/23 09:00 07/13/23 08:16 Enoxaparin 30 Mg/0.3 Ml Syringe SUB-Q 30 mg DAILY SHERRIE Administration Epoetin Huan-epbx 20,000 units 07/14/23 20:00 07/14/23 11:48 Epoetin Huan-Epbx 20,000 Units/Ml Vial IV PUSH 07/14/23 20:01 20,000 units ONCE ONE Administration Ergocalciferol 50,000 units 07/07/23 09:00 07/07/23 13:45 Ergocalciferol 50,000 Units Capsule PO 50,000 units WEEKLY SHERRIE Administration Folic Acid
--- NOTE | 2023-07-14 10:00 | P.PNNP_ITS ---
Progress Note: A&P Assessment and Plan (1) End stage renal disease: Code(s): N18.6 - End stage renal disease Status: Chronic Assessment and Plan: * HD today * continue M/W/F dialysis schedule while hospitalized * follow electrolytes, volume status, and clearance * follows with Dr. Hayes at [facility] (2) Bacteremia: Code(s): R78.81 - Bacteremia Status: Acute Assessment and Plan: * blood cultures with methicillin sensitive Staphylococcus aureus * YUN negative for vegetations * ultrasound of AVF negative for abscess * repeat cultures (07/12) negative to date * on antibiotic therapy (3) Pneumonia: Code(s): J18.9 - Pneumonia, unspecified organism Status: Acute Assessment and Plan: * as noted by admission imaging * culture data noted * completed course of antibiotics for this issue (4) Hypertension: Code(s): I10 - Essential (primary) hypertension Status: Chronic Assessment and Plan: * reasonable control at this time * follow trend of hemodynamics (5) Anemia: Code(s): D64.9 - Anemia, unspecified Status: Chronic Assessment and Plan: * due to ESRD * Epogen with HD * follow trend of H/H Will continue to follow. Subjective Date/time seen: 07/14/23 10:00 Interval history: Follow-up for end stage renal disease on hemodialysis. Chart reviewed since last seen; tolerating hemodialysis treatment at the time of my visit (seen on HD at 09:50AM); no apparent distress noted currently; no other issues/events overnight or earlier this morning; hopes to be going home soon; otherwise, feels reasonably well. Exam 2 Narrative: General: WD/WN male in NAD Heart: normal S1 and S2; no rub Lungs: clear breath sounds Abdomen: soft, nontender, nondistended, positive bowel sounds Extremities: no cyanosis or clubbing; no edema Skin: warm and intact Objective Data Vital Signs Vital Signs: Vital Signs Temp Pulse Resp BP Pulse Ox O2 Del Method O2 Flow Rate 07/14/23 10:00 78 98/52 L 07/14/23 09:45 73 105/55 L 07/14/23 09:30 76 105/59 L 07/14/23 09:15 74 117/64 07/14/23 09:08 73 119/67 07/14/23 08:57 98.1 F 77 18 125/69 100 07/14/23 08:57 0 07/14/23 08:00 Room Air 07/14/23 05:57 98.4 F 71 18 159/90 H 99 07/13/23 21:08 97.6 F 66 18 130/84 99 07/13/23 14:00 97.6 F 68 12 148/87 H 100 Intake/Output Intake/Output: Intake & Output 07/11/23 07/12/23 07/13/23 07/14/23 23:59 23:59 23:59 23:59 Intake Total 1186 2352 1090 320 Output Total 3000 Balance -1814 2352 1090 320 Meds/Results Medications: Active Medications Generic Name Dose Route Start Last Admin Trade Name Freq PRN Reason Stop Dose Admin Acetaminophen 650 mg 07/03/23 00:25 07/10/23 16:54 Acetaminophen 325 Mg Tablet PO 650 mg Q4H PRN Administration Mild Pain (1-3) or Fever Al Hydrox/Mg Hydrox/Simethicone 30 ml 07/03/23 00:25 Mag Hydrox/Al Hydrox/Simeth 30 Ml Udc PO QID PRN Dyspepsia
--- NOTE | 2023-07-14 11:02 | PCPTNOTE ---
The patient treatment was not able to be completed due to patient out of room for dialysis. Will plan to continue treatment per plan of care.
[2023-07-14] MEDS: EPOETIN ALFA-EPBX 20,000 UNITS/ML VIAL 20000 UNITS IV PUSH (11:48)
--- NOTE | 2023-07-14 12:26 | PM.IMPN ---
Progress Note: A&P Assessment and Plan (1) Bacteremia: Code(s): R78.81 - Bacteremia Status: Acute (2) Anemia: Code(s): D64.9 - Anemia, unspecified Status: Chronic (3) Hypertension: Code(s): I10 - Essential (primary) hypertension Status: Chronic (4) End stage renal disease: Code(s): N18.6 - End stage renal disease Status: Chronic (5) Alcohol withdrawal: Code(s): F10.939 - Alcohol use, unspecified with withdrawal, unspecified Status: Acute (6) Abnormal CT of the chest: Code(s): R93.89 - Abnormal findings on diagnostic imaging of other specified body structures Status: Acute (7) Elevated troponin: Code(s): R79.89 - Other specified abnormal findings of blood chemistry Status: Acute (8) Chronic alcohol use: Code(s): F10.90 - Alcohol use, unspecified, uncomplicated Status: Acute (9) Pneumonia: Code(s): J18.9 - Pneumonia, unspecified organism Status: Acute Plan 58M w/ PMH alcohol abuse, GERD, HLD, HTN, ESRD on dialysis MWF presents with shaking and chest soreness admitted on 07/02/23. # bacteremia - 07/02 MSSA x2 - 07/07 d/c ceftriaxone on iv cefazolin for double MSSA coverage - patient does not appear toxic/septic. his AV fistula does not appear infected, LUE negative - YUN was negative no vegetations found -remains intermittently febrile. Nine hundred twenty-four came back positive again growing Staph aureus Will add daptomycin along with cefazolin Ultrasound left fistula with no signs of abscess Plan for cefazolin with intermittent dialysis Added on daptomycin due to persistent bacteremia with MSSA CT chest abdomen pelvis reviewed right middle lobe pulmonary nodule mildly increased and more confluent and focal consolidation superior segment left lower lobe mildly improved additional 5 mm left lower lobe pulmonary nodule which looks benign needs to be followed up as an outpatient basis with repeat scan Repeat blood culture from 07/12/2023 remains negative to date. Plan to DC on daptomycin and Ancef with dialysis to complete 2 weeks course End date 07/26/2023 #tremors - this is his presenting complaint. resolved. Was either due to alcohol withdrawal or his bacteremia # CAP - received 5 days of ceftriaxone and azithromycin. Now on vanc/ cefazolin for bacteremia - 12mm mass in left lung. Pneumonia? Repeat CT 1 month after treatment of pneumonia # alcohol abuse with possible alcohol withdrawal - was questionable on admission. He had presenting complaint of tremors. At some point he was sensitive to light. CIWA was only as high as 6. Librium has since been DC. Continue CIWA - counseled. pt wants to change from 2 liters of wine to 1 liter of wine per day but no less. care coordination consultation - PT/OT - thrombocytopenia, likely 2/2 to cirrhosis/alcohol. - transaminitis likely secondary to alcohol use. continue to monitor # elevated troponin - flat. cont to trend. chest pain on presentation described as atypical. Has since resolved. EKG w/o acute ischemia TTE 07/05/2023 unremarkable YNU 07/08/2023 no vegetation # ESRD on dialysis MWF - on schedule. consult nephrology - pt had dialysis # HTN - controlled. CPM # GERD - CPM Subjective Date/time seen: 07/14/23 12:26 Interval history: Seen during the dialysis. Is feeling well. Remains afebrile. Repeat blood culture on 07/12/2023 remains negative to date. On Ancef and daptomycin with dialysis Review of Systems Review of Systems: All systems reviewed & are unremarkable except as noted in HPI and below (Subjective) Exam Narrative: General physical exam: Patient lying in bed, appears sleepy tired and fatigued, not having any active chest pain Head/eyes: Atraumatic, EOMI, PERRLA ENT: Moist mucous membranes, nasal passages clear Neck: Supple, full range of motion, trachea midline CVS: S1 + S2, regular rate and rhythm, no murmurs Resp
--- NOTE | 2023-07-14 12:40 | PC.NURSE ---
Back from dialysis via bed.
[2023-07-14] MEDS: ERGOCALCIFEROL 50,000 UNITS CAPSULE 50000 UNITS PO (12:46)
[2023-07-14] MEDS: SODIUM BICARBONATE TAB 650 MG TABLET PO ×2 (12:46→16:56)
[2023-07-14] MEDS: FOLIC ACID 1 MG TABLET PO (12:46)
[2023-07-14] MEDS: PANTOPRAZOLE 40 MG TABLET PO (12:46)
[2023-07-14] MEDS: allopurinoL 300 MG TABLET PO (12:46)
[2023-07-14] MEDS: ceFAZolin 1 GM/NS 50 ML 1 GM/50 ML BAG IVPB (12:49)
[2023-07-14] MEDS: HYDROCORTISONE 1% 30 GM CREAM 1 APPLIC TOPICAL ×2 (12:49→20:46)
[2023-07-14] MEDS: THIAMINE HCL 200 MG/2 ML VIAL 100 MG IV PUSH (12:49)
[2023-07-15 06:00] VITALS: BP 129/86; PULSE 74; RESP 18; TEMP 36.9; O2SAT 96
[2023-07-15] MEDS: SEVELAMER CARBONATE 800 MG TABLET 2400 MG PO ×2 (07:49→11:48)
[2023-07-15] MEDS: HYDROCORTISONE 1% 30 GM CREAM 1 APPLIC TOPICAL (08:37)
[2023-07-15] MEDS: cloNIDine HCL 0.2 MG TABLET PO (08:37)
[2023-07-15] MEDS: allopurinoL 300 MG TABLET PO (08:37)
[2023-07-15] MEDS: SODIUM BICARBONATE TAB 650 MG TABLET PO (08:37)
[2023-07-15] MEDS: FOLIC ACID 1 MG TABLET PO (08:37)
[2023-07-15] MEDS: PANTOPRAZOLE 40 MG TABLET PO (08:37)
--- NOTE | 2023-07-15 09:16 | PM.PNNEP ---
Progress Note: A&P Assessment and Plan (1) End stage renal disease: Code(s): N18.6 - End stage renal disease Status: Chronic Assessment and Plan: HD tomorrow continue M/W/F dialysis schedule while hospitalized follow electrolytes, volume status, and clearance follows with Dr. Hayes at [facility] (2) Bacteremia: Code(s): R78.81 - Bacteremia Status: Acute Assessment and Plan: blood cultures with methicillin sensitive Staphylococcus aureus YUN negative for vegetations ultrasound of AVF negative for abscess repeat cultures (07/12) negative to date on antibiotic therapy (3) Pneumonia: Code(s): J18.9 - Pneumonia, unspecified organism Status: Acute Assessment and Plan: as noted by admission imaging culture data noted completed course of antibiotics for this issue (4) Hypertension: Code(s): I10 - Essential (primary) hypertension Status: Chronic Assessment and Plan: reasonable control at this time follow trend of hemodynamics (5) Anemia: Code(s): D64.9 - Anemia, unspecified Status: Chronic Assessment and Plan: due to ESRD Epogen with HD follow trend of H/H Not opposed to discharge from renal perspective if otherwise medically stable. Will continue to follow. Subjective Date/time seen: 07/15/23 09:16 Interval history: Follow-up for end stage renal disease on hemodialysis. Tolerated dialysis treatment yesterday without any issues or problems; no apparent distress voiced at the time of my visit; no issue/events overnight or earlier this morning. Exam Narrative: General: WD/WN male in NAD Heart: normal S1 and S2; no rub Lungs: clear breath sounds Abdomen: soft, nontender, nondistended, positive bowel sounds Extremities: no cyanosis or clubbing; no edema Skin: no rash Objective Data Vital Signs Vital Signs: Vital Signs Temp Pulse Resp BP Pulse Ox O2 Del Method 07/15/23 08:35 Room Air 07/15/23 06:00 98.4 F 74 18 129/86 96 07/14/23 21:37 98.6 F 73 18 142/95 H 97 07/14/23 14:10 98.4 F 79 16 111/65 98 07/14/23 12:24 97.7 F 73 16 110/68 100 07/14/23 12:11 73 107/64 07/14/23 12:00 72 108/67 07/14/23 11:45 70 112/67 07/14/23 11:30 71 108/68 07/14/23 11:15 70 101/58 L 07/14/23 11:00 68 110/68 Intake/Output Intake/Output: Intake & Output 07/12/23 07/13/23 07/14/23 07/15/23 23:59 23:59 23:59 23:59 Intake Total 2351 1090 1250 590 Output Total 1999 Balance 2352 1090 -750 590 Meds/Results Medications: Active Medications Generic Name Dose Route Start Last Admin Trade Name Freq PRN Reason Stop Dose Admin Acetaminophen 650 mg 07/03/23 00:25 07/10/23 16:54 Acetaminophen 325 Mg Tablet PO 650 mg Q4H PRN Administration Mild Pain (1-3) or Fever Al Hydrox/Mg Hydrox/Simethicone 30 ml 07/03/23 00:25 Mag Hydrox/Al Hydrox/Simeth 30 Ml Udc PO QID PRN Dyspepsia Allopurinol 300 mg 07/03/23 09:00 07/15/23 08:37 Allopurinol 300 Mg Tablet PO 300 mg DAILY SHERRIE Administration Atorvastatin Calcium 40 mg 07/03/23 09:00 07/13/23 08:16 Atorvastatin 40 Mg Tablet PO 40 mg DAILY SEHRRIE Administration Clonidine HCl 0.2 mg 07/03/23 09:00 07/15/23 08:37 Clonidine Hcl 0.2 Mg Tablet PO 0.2 mg BID SHERRIE Administration Enoxaparin Sodium 30 mg 07/03/23 09:00 07/15/23 09:30 Enoxaparin 30 Mg/0.3 Ml Syringe SUB-Q 30 mg DAILY SHERRIE Administration Ergocalciferol 50,000 units 07/07/23 09:00 07/14/23 12:46 Ergocalciferol 50,000 Units Capsule PO 50,000 units WEEKLY SHERRIE Administration Folic Acid 1 mg 07/03/23 09:00 07/15/23 08:37 Folic Acid 1 Mg Tablet PO 1 mg DAILY SHERRIE Administration Hydralazine HCl 25 mg 07/09/23 11:51 07/09/23 12:03 Hydralazine Hcl 25 Mg Tablet PO 25 mg TID PRN Adm
--- NOTE | 2023-07-15 09:16 | P.PNNP_ITS ---
Progress Note: A&P Assessment and Plan (1) End stage renal disease: Code(s): N18.6 - End stage renal disease Status: Chronic Assessment and Plan: * HD tomorrow * continue M/W/F dialysis schedule while hospitalized * follow electrolytes, volume status, and clearance * follows with Dr. Hayes at [facility] (2) Bacteremia: Code(s): R78.81 - Bacteremia Status: Acute Assessment and Plan: * blood cultures with methicillin sensitive Staphylococcus aureus * YUN negative for vegetations * ultrasound of AVF negative for abscess * repeat cultures (07/12) negative to date * on antibiotic therapy (3) Pneumonia: Code(s): J18.9 - Pneumonia, unspecified organism Status: Acute Assessment and Plan: * as noted by admission imaging * culture data noted * completed course of antibiotics for this issue (4) Hypertension: Code(s): I10 - Essential (primary) hypertension Status: Chronic Assessment and Plan: * reasonable control at this time * follow trend of hemodynamics (5) Anemia: Code(s): D64.9 - Anemia, unspecified Status: Chronic Assessment and Plan: * due to ESRD * Epogen with HD * follow trend of H/H Not opposed to discharge from renal perspective if otherwise medically stable. Will continue to follow. Subjective Date/time seen: 07/15/23 09:16 Interval history: Follow-up for end stage renal disease on hemodialysis. Tolerated dialysis treatment yesterday without any issues or problems; no apparent distress voiced at the time of my visit; no issue/events overnight or earlier this morning. Exam Narrative: General: WD/WN male in NAD Heart: normal S1 and S2; no rub Lungs: clear breath sounds Abdomen: soft, nontender, nondistended, positive bowel sounds Extremities: no cyanosis or clubbing; no edema Skin: no rash Objective Data Vital Signs Vital Signs: Vital Signs Temp Pulse Resp BP Pulse Ox O2 Del Method 07/15/23 08:35 Room Air 07/15/23 06:00 98.4 F 74 18 129/86 96 07/14/23 21:37 98.6 F 73 18 142/95 H 97 07/14/23 14:10 98.4 F 79 16 111/65 98 07/14/23 12:24 97.7 F 73 16 110/68 100 07/14/23 12:11 73 107/64 07/14/23 12:00 72 108/67 07/14/23 11:45 70 112/67 07/14/23 11:30 71 108/68 07/14/23 11:15 70 101/58 L 07/14/23 11:00 68 110/68 Intake/Output Intake/Output: Intake & Output 07/12/23 07/13/23 07/14/23 07/15/23 23:59 23:59 23:59 23:59 Intake Total 2352 1090 1250 590 Output Total 1999 Balance 2352 1090 -750 590 Meds/Results Medications: Active Medications Generic Name Dose Route Start Last Admin Trade Name Freq PRN Reason Stop Dose Admin Acetaminophen 650 mg 07/03/23 00:25 07/10/23 16:54 Acetaminophen 325 Mg Tablet PO 650 mg Q4H PRN Administration Mild Pain (1-3) or Fever Al Hydrox/Mg Hydrox/Simethicone 30 ml 07/03/23 00:25 Mag Hydrox/Al Hydrox/Simeth 30 Ml Udc PO QID PRN Dyspepsia Allopurinol 300 mg 07/03/23
[2023-07-15] MEDS: ceFAZolin 1 GM/NS 50 ML 1 GM/50 ML BAG IVPB (09:30)
[2023-07-15] MEDS: ENOXAPARIN 30 MG/0.3 ML SYRINGE SUB-Q (09:30)
--- NOTE | 2023-07-15 12:51 | PM.DS ---
DS: Admitting Diagnosis Discharge Date 07/15/2023 Admitting Diagnosis Chest pain DS: Discharge Diagnosis Discharge Diagnosis (1) Bacteremia: Code(s): R78.81 - Bacteremia Status: Acute (2) Anemia: Code(s): D64.9 - Anemia, unspecified Status: Chronic (3) Hypertension: Code(s): I10 - Essential (primary) hypertension Status: Chronic (4) End stage renal disease: Code(s): N18.6 - End stage renal disease Status: Chronic (5) Alcohol withdrawal: Code(s): F10.939 - Alcohol use, unspecified with withdrawal, unspecified Status: Acute (6) Abnormal CT of the chest: Code(s): R93.89 - Abnormal findings on diagnostic imaging of other specified body structures Status: Acute (7) Elevated troponin: Code(s): R79.89 - Other specified abnormal findings of blood chemistry Status: Acute (8) Chronic alcohol use: Code(s): F10.90 - Alcohol use, unspecified, uncomplicated Status: Acute (9) Pneumonia: Code(s): J18.9 - Pneumonia, unspecified organism Status: Acute DS: Summary Hospital Course Hospital Course: 58M w/ PMH alcohol abuse, GERD, HLD, HTN, ESRD on dialysis MWF presents with shaking and chest soreness admitted on 07/02/23. # MSSA bacteremia - 07/02 MSSA x2 -patient remains intermittently febrile Persistent bacteremia even until blood culture on 07/08 Dieter performed sedation Ultrasound left fistula with no signs of abscess Only source being pneumonia with initial chest x-ray and CT revealing left lower lobe pneumonia Repeat CT chest abdomen pelvis reviewed right middle lobe pulmonary nodule mildly increased and more confluent and focal consolidation superior segment left lower lobe mildly improved additional 5 mm left lower lobe pulmonary nodule which looks benign needs to be followed up as an outpatient basis with repeat scan Repeat blood culture from 07/12/2023 remains negative to date. For persistent bacteremia complicated infection tentatively plan to do 4 weeks course of IV antibiotics with Ancef with dialysis which was arranged at the time of discharge #tremors - this is his presenting complaint. resolved.? Was either due to alcohol withdrawal or his bacteremia # CAP See above Repeat CT in 1 month for resolution Also follow-up for lung nodules # alcohol abuse with possible alcohol withdrawal - was questionable on admission.? He had presenting complaint of tremors.? At some point he was sensitive to light.? CIWA was only as high as 6.? Librium has since been DC.? Continue CIWA - counseled. pt wants to change from 2 liters of wine to 1 liter of wine per day but no less. care coordination consultation - PT/OT - thrombocytopenia, likely 2/2 to cirrhosis/alcohol. - transaminitis likely secondary to alcohol use. continue to monitor # elevated troponin - flat. cont to trend. chest pain on presentation described as atypical.? Has since resolved. EKG w/o acute ischemia TTE 07/05/2023 unremarkable DIETER 07/08/2023 no vegetation # ESRD on dialysis MWF - on schedule. consult nephrology - pt had dialysis # HTN - controlled. CPM # GERD - CPM Time Spent with Patient Time attestation: Total time spent providing and/or coordinating discharge services: 45 minutes Exam Narrative: General physical exam: Patient lying in bed, not in acute distress Head/eyes: Atraumatic, EOMI, PERRLA ENT: Moist mucous membranes, nasal passages clear Neck: Supple, full range of motion, trachea midline CVS: S1 + S2, regular rate and rhythm, no murmurs Respiratory: Bilaterally decreased air entry in both lung marte, no respiratory distress Abdomen: Soft, non-tender, bowel sounds +ve, no organomegaly Extremities: No clubbing, no cyanosis, no edema, no calf tenderness Musculoskeletal: Moves all, adequate range of motion, no muscle spasms Skin: Warm, dry, no jaundice, no cyanosis Neurological: Awake, alert, cranial nerves II-XII intact, no f
== END 2023-07-15 13:40 | disposition home or self-care (01) | DRG 193 ==
LOC: ANHED 11:24 → ANHIMU 14:41 → ANH3MEDSUR 07-10 04:56
PROVIDERS: Family Medicine; General Practice; Internal Medicine; Internal Medicine Nephrology; Admitting Provider Hospitalist; Emergency Provider Emergency Medicine; PCP Internal Medicine Infectious Disease; Visit Provider Internal Medicine
PROC: B24BZZ4 Ultrasonography of Heart with Aorta, Transesophageal (ICD-10-PCS; CPT 93312; principal; 2023-07-08 11:30)
DX: J18.9 Pneumonia, unspecified organism (principal); N18.6 End stage renal disease; F10.139 Alcohol abuse with withdrawal, unspecified; R78.81 Bacteremia; I12.0 Hypertensive chronic kidney disease with stage 5 chronic kidney disease or end stage renal disease; B95.61 Methicillin susceptible Staphylococcus aureus infection as the cause of diseases classified elsewhere; G25.2 Other specified forms of tremor; R91.8 Other nonspecific abnormal finding of lung field; K70.30 Alcoholic cirrhosis of liver without ascites; D69.59 Other secondary thrombocytopenia; K21.9 Gastro-esophageal reflux disease without esophagitis; E78.5 Hyperlipidemia, unspecified; Z20.822 Contact with and (suspected) exposure to COVID-19; D63.1 Anemia in chronic kidney disease; Z99.2 Dependence on renal dialysis
CPT/HCPCS: 36415; 71046; 71250; 74176; 76882; 80048; 80053; 80069; 80202; 82948; 83735; 84100; 84145; 84484; 85025; 85055; 85610; 85730; 86706; 87040; 87147; 87181; 87186; 87340; 87637; 87641; 93005; 93306; 93312; 93320; 93325; 96374; 96375; 97116; 97161; 97165; 97530; 99285; A9270; G0257; G0378; J0456; J0690; J0696; J0878; J1644; J1650; J2060; J2704; J3370; J3411; J7030; J7040; P9047; Q5105; Q5106

== ENCOUNTER 2023-07-21 06:32 | Observation (INO) | payer MEDICARE, MEDICAID, SELFPAY ==
[2023-07-21] VITALS (18 sets, daily range): BP systolic 150–197; BP diastolic 87–107; PULSE 83–120; RESP 14–23; TEMP 36.2–36.9; O2SAT 92–100; BMI 28.4
--- NOTE | ~2023-07-21 | CT_ITS ---
EXAMINATION: CT abdomen pelvis wo con DATE: 07/21/2023 10:00 INDICATION: Abdominal pain TECHNIQUE: Computed tomography (CT) of the abdomen and pelvis was performed without intravenous contr ast. The dose-length product was 753.97 mGy-cm. Automated exposure control and iterative reconstructi on technique were employed. COMPARISON: CT dated 07/12/2023 FINDINGS: There is dependent atelectasis. Heart size normal. No significant pleural or pericardial ef fusion. The liver, spleen, pancreas, adrenal glands and left kidney are unremarkable. There is a cyst at the lower pole of the left kidney measuring 2.5 cm. Right kidney is not identified, likely surgic ally or congenitally absent. Bladder is decompressed limiting evaluation for wall thickening. There i s atherosclerosis of the aorta without aneurysm. No lymphadenopathy. Prostate gland is enlarged. Gall bladder is present. Small fat-containing umbilical hernia. Soft tissue nodule right anterior abdomina l wall, likely benign. Small fat-containing left inguinal hernia. Nonobstructive bowel gas pattern. IMPRESSION: 1. No acute abdominal abnormality. Reviewed, dictated and finalized at location B. [employer]
--- NOTE | ~2023-07-21 | XR_ITS ---
EXAMINATION: XR chest 1V portable DATE: 07/21/2023 13:13 INDICATION: Shortness of breath TECHNIQUE: frontal view of the chest was obtained. COMPARISON: Chest radiograph dated 07/02/[address] dated 07/12/2023 FINDINGS: The nodular opacity previously seen in the left midlung zone is not visualized on current study. No n ew airspace opacities, pulmonary edema, pleural effusion or pneumothorax. The cardiomediastinal silho uette is normal. There are bridging osteophytes at multiple levels consistent with diffuse idiopathic skeletal hyperostosis (DISH). IMPRESSION: 1. No acute cardiopulmonary disease. Reviewed, dictated and finalized at location A. [facility] [employer]
[2023-07-21 07:10] LABS: Basophils Absolute Auto 0.1 K/mm3 (0.0-0.1); Basophils Percent Auto 1.4 % (0.2-1.2); Eosinophils Absolute Auto 0.1 K/mm3 (0-0.3); Hematocrit 24.3 % (42.0-52.0); Hemoglobin 7.9 g/dL (14.0-18.0); Immature Granulocyte Absolute 0.03 K/mm3 (0.00-0.031); Immature Granulocyte Percent A 0.5 % (0-0.5); Lymphocytes Absolute Auto 1.27 K/mm3 (0.9-3.2); Mean Corpuscular HGB Conc 32.5 g/dl (32-36); Mean Corpuscular Hemoglobin 32.8 pg (26-34); Mean Corpuscular Volume 100.8 fl (80-100); Mean Platelet Volume 8.5 fl (7.4-10.4); Monocytes Absolute Auto 0.4 K/mm3 (0.1-0.6); Monocytes Percent Auto 6.3 % (2.6-8.5); Neutrophils Absolute Auto 4.4 K/mm3 (1.3-6.7); Neutrophils Percent Auto 69.8 % (45.5-73.1); Platelet Count Result 377 k/mm3 (150-375); Red Blood Count 2.41 M/mm3 (4.6-6.20); Red Cell Distribution Width 16.1 % (11.5-14.5); White Blood Count 6.4 K/mm3 (4.5-10.0)
[2023-07-21 07:16] LABS: Appearance Urine Clear (Clear); Bacteria Urine None Seen /hpf; Bilirubin Urine Negative (Negative); Blood Urine 1+ (Negative); Color Urine Yellow (Yellow); Glucose Urine UA Negative (Negative); Ketones Urine Negative (Negative); Leukocyte Esterase Ur 2+ LEU/UL (Negative); Nitrate Urine Negative (Negative); Non Pathogenic Casts 0-2; Protein Urine 2+ mg/dL (Negative); RBC Urine 0-2 /hpf (0-2); Squamous Epithelial Cell Urine None seen /hpf (Few); Urobilinogen Urine 0.2 mg/dL (<2.0); WBC Urine 21-50 /hpf
--- NOTE | 2023-07-21 07:18 | PC.NURSE ---
RN notified lab of additional lab order for Ethanol
[2023-07-21 07:19] LABS: Alanine Aminotransferase 6 U/L (6-50); Albumin Level 3.6 g/dL (3.5-5.1); Alkaline Phosphatase 102 U/L (38-126); Anion Gap 14 mmol/L (8-16); Aspartate Amino Transferase 29 U/L (17-59); Bilirubin,Total 0.3 mg/dL (0.2-1.3); Blood Urea Nitrogen 47 mg/dL (9-20); Carbon Dioxide 21 mmol/L (22-30); Chloride 97 mmol/L (98-107); Estimated CRCL calculation 10 ml/min; Estimated Glomerular Filt Rate 8; Glucose 80 mg/dL (65-110); Lipase 480 U/L (23-300); Potassium 5.9 mmol/L (3.4-5.0); Sodium 132 mmol/L (137-145)
[2023-07-21 07:21] LABS: Add Urine Microscopic? YES
[2023-07-21 07:29] LABS: Ethanol 58 mg/dL (<10)
--- NOTE | 2023-07-21 07:32 | ED.GENADULT ---
HPI - General Adult General Chief complaint: Unspecified Stated complaint: missing dialysis Time Seen by Provider: 07/21/23 06:51 History of Present Illness HPI narrative: 58-year-old male present to the emergency department for evaluation abdominal pain. Patient does get dialysis on Friday and Friday. Patient was drinking alcohol last night and when he went to the dialysis it was stopped due to him having abdominal pain. Upon arrival to the emergency department patient states the abdominal pain is improving. Patient is in no distress and has no abdominal tenderness to palpation. Patient does admit to drinking alcohol daily. Related Data Home Medications Medication Instructions Recorded Confirmed allopurinol 300 mg tablet 300 mg PO DAILY 07/02/23 07/21/23 atorvastatin 40 mg tablet 40 mg PO DAILY 07/02/23 07/21/23 clonidine HCl 0.2 mg tablet 0.2 mg PO BID 07/02/23 07/21/23 ergocalciferol (vitamin D2) 1,250 50,000 mcg PO WEEKLY 07/02/23 07/21/23 mcg (50,000 unit) capsule pantoprazole 40 mg tablet,delayed 40 mg PO DAILY 07/02/23 07/21/23 release sodium bicarbonate 650 mg tablet 650 mg PO BID 07/02/23 07/21/23 sevelamer carbonate 800 mg tablet 2,400 mg PO TIDWM 07/09/23 07/21/23 cefazolin 1 gram intravenous 1 g IV 3XW 07/21/23 07/21/23 solution vitamin B complex-vitamin C-folic 1 tablet PO DAILY 07/21/23 07/21/23 acid 0.8 mg tablet Allergies Allergy/AdvReac Type Severity Reaction Status Date / Time No Known Allergies Allergy Verified 07/21/23 12:54 Review of Systems Review of Systems: All systems reviewed & are unremarkable except as noted in HPI and below PMFSH Past Medical History Medical History (Updated 07/21/23 @ 14:26 by Madison Iraheta PA-C) Chronic alcohol use Chronic anemia End-stage renal disease on hemodialysis Gastroesophageal reflux disease Hyperlipidemia Hypertension Surgical History Surgical History (Updated 07/21/23 @ 14:18 by Madison Iraheta PA-C) History of arteriovenous graft Social History Social History (Updated 07/21/23 @ 14:21 by Madison Iraheta PA-C) Social History: Surrogate medical decision maker: Noemy Darrick, niece. Code status: Full code. Smoking status: Never smoker Second hand tobacco smoke exposure: No Alcohol intake: current Drinks per week: 14 Substance use: current Substance use type: marijuana Last use: 07/20/23 Do You Feel Safe in your Home?: Yes Lack of Transportation: No Lack of Food: Never True Current Housing: I Have Housing Concerned About Future Housing: No Difficulty Paying Gas/Electric Bills: No Difficulty Paying for Meds: No Currently Unemployed: No Education: Grade School Difficulty w/ Childcare or Family Care: No Spiritual care concerns: No Exam Narrative: APPEARANCE: Well appearing, no pain, no distress, well-nourished. HEAD: normocephalic, atraumatic. EYES: PERRLA/EOMI, conjunctivae clear. NOSE: Normal no drainage EARS:TMS clear with good light reflex. THROAT: Pharynx clear, no exudate. NECK: Supple. No adenopathy, no masses. RESPIRATORY: Airway patent, respirations nonlabored. Clear to auscultation bilaterally, no rales, rhonchi, wheezing. CARDIOVASCULAR: Regular rate and rhythm without murmurs rubs or gallops. ABDOMINAL: Soft, nontender, nondistended, normal bowel sounds MUSCULOSKELETAL: Moves all extremities. Strength/ROM intact, No edema, No calf tenderness. NEURO: Alert. Cranial nerves II through XII intact. Good gait. Good coordination SKIN: Warm, dry. Normal Color PSYCHIATRIC: Normal affect/mood. Course Course Emergency Course: 58-year-old male presenting to the emergency department for evaluation of abdominal pain and a missed dialysis appointment. Patient was hyperkalemic upon arrival to the emergency department and he was treated with bicarb, insulin/dextrose, glaucoma and inhaled albuterol. Nephrology was consulted. Patient was offered to be discharge
[2023-07-21] MEDS: ALBUTEROL SULFATE NEB 2.5 MG/3 ML INH 10 MG INHALATION (07:45)
[2023-07-21] MEDS: INSULIN HUMAN REGULAR (*BKC) 100 UNITS/ML 10 UNITS IV PUSH (07:56)
[2023-07-21] MEDS: SODIUM BICARBONATE 8.4% 50 MEQ/50 ML SYRINGE IV PUSH (07:57)
[2023-07-21] MEDS: SODIUM POLYSTYRENE SULFONONATE 15 GM/60 ML BTL 30 GM PO (07:57)
[2023-07-21] MEDS: HYDROmorphone HCL INJ (*CRX) 1 MG/ML SYR 0.5 MG IV PUSH (07:57)
[2023-07-21] MEDS: DEXTROSE 50% 25 GM/50 ML SYRINGE IV PUSH ×3 (07:57→09:46)
--- NOTE | 2023-07-21 08:18 | PC.NURSE ---
Pt states I had to drink 2 bottles of wine last night to get to sleep. The antibiotics I'm taking are keeping me awake. Pt states he is too sick to have his dialysis today.
[2023-07-21] MEDS: LORazepam INJ (*CRX) 2 MG/ML VIAL IV PUSH (09:12)
[2023-07-21 09:15] LABS: Glucose Point of Care 43 mg/dl (65-105)
--- NOTE | 2023-07-21 09:17 | PC.NURSE ---
Pt c/o anxiety, tremors & diaphoresis present. Pt given Dextrose & Ativan per orders
[2023-07-21 09:50] LABS: Glucose Point of Care 58 mg/dl (65-105)
[2023-07-21 10:33] LABS: Glucose Point of Care 80 mg/dl (65-105)
[2023-07-21 10:56] LABS: Anion Gap 13 mmol/L (8-16); Blood Urea Nitrogen 48 mg/dL (9-20); Calcium 9.3 mg/dL (8.4-10.2); Carbon Dioxide 25 mmol/L (22-30); Chloride 99 mmol/L (98-107); Estimated CRCL calculation 10 ml/min; Estimated Glomerular Filt Rate 8; Glucose 76 mg/dL (65-110); Potassium 4.5 mmol/L (3.4-5.0); Sodium 137 mmol/L (137-145)
[2023-07-21] MEDS: SODIUM ZIRCONIUM CYCLOSILICATE 10 GM POWD.PACK PO (11:37)
--- NOTE | 2023-07-21 11:45 | PC.NURSE ---
ordered pt. lunch tray.
--- NOTE | 2023-07-21 12:22 | PM.CNNEP ---
Assessment and Plan Assessment and plan (1) End stage renal disease: Code(s): N18.6 - End stage renal disease Status: Chronic Assessment and Plan: HD tomorrow transition back M/W/F dialysis schedule when able follow electrolytes, volume status, and clearance follows with Dr. Hayes at [facility] (2) Acute hyperkalemia: Code(s): E87.5 - Hyperkalemia Status: Acute Assessment and Plan: as noted on admission s/p medical therapy with improvement noted follow repeat K+ levels (3) Abdominal pain: Code(s): R10.9 - Unspecified abdominal pain Status: Acute Assessment and Plan: resolving at this time related to alcohol consumption the eveninf before admission(?) CT scan of abd/pelvis negative supportive therapy (4) Bacteremia: Code(s): R78.81 - Bacteremia Status: Acute Assessment and Plan: as noted on last hospitalization cultures with MSSA receiving antibiotics with outpatient dialysis (for a total oif 4 weeks) noted negative YUN and ultrasound of AV access (on last hospital stay) continue antibiotics here (Ancef) (5) Hypertension: Code(s): I10 - Essential (primary) hypertension Status: Chronic Assessment and Plan: fluctuating at this time resume home medications follow trend of hemodynamics (6) Anemia: Code(s): D64.9 - Anemia, unspecified Status: Chronic Assessment and Plan: due to ESRD Epogen with HD follow trend of H/H I would not be opposed to discharge after dialysis tomorrow if he is otherwise medically stable. He can resume his outpatient dialysis schedule on Friday and continue his outpatient IV antibiotics as well. I will continue follow patient with you while remains hospitalized make further recommendations as deemed necessary Thank you for allowing me participate in care of this patient. History of Present Illness Reason for Consult Consult date: 07/21/23 Reason for consult: end stage renal disease Chief Complaint Chief complaint: Dialysis/Ab Pain History of Present Illness Narrative: The patient is a 58-year-old male with a past medical history as outlined below who presented to [facility] Emergency room due complaints of abdominal pain. Patient presented to his outpatient dialysis unit earlier today for his regularly scheduled dialysis treatment. He reports that he developed diffuse abdominal discomfort over the weekend which he describes as a constant hurting sensation. In association with this, he has had a quite a bit and nausea but no overt emesis although he feels if he had an episode of vomiting, he would feel better. He also reports some diarrhea as well but this has since resolved. When he presented to his outpatient dialysis unit, he reported the symptoms/complaints and he was subsequently transferred to the emergency room for further assessment. Workup and evaluation emergency room demonstrated a CBC that was remarkable for mild anemia and a chemistry that was consistent with his known history of end-stage renal disease although his potassium was mildly elevated 5.9. His lipase was also mildly elevated as well and a subsequent CT scan of the abdomen pelvis demonstrated no intra-abdominal pathology. Given the severe weather conditions and the lack of dialysis nursing staff, he will not likely be able to get dialysis today in the hospital so medical management was instituted for treatment of his potassium. He was subsequently admitted to the hospital for further evaluation therapy. Since his admission, he has been tolerating oral intake in the form of a clear liquid diet and does report some tremors of the hands which may be early signs of alcohol withdrawal given his extensive alcohol intake history. He otherwise appears in no apparent distress. Renal consultation was requested due to his end-stage renal disease
[2023-07-21] MEDS: ONDANSETRON INJ 4 MG/2 ML VIAL IV PUSH (12:29)
--- NOTE | 2023-07-21 12:42 | ADMGEN ---
This patient, Harrison Bains, was admitted to IMU Room 207-01. Patient/family oriented to hospital policies and general routines including ID bracelet, bed and alarms, visiting hours, pain management, procedures, bathroom and other care routines, personal items, smoking policy, room service/diet, and visiting hours. Information on how to activate the Rapid Response Team has been discussed. Patient/Family are encouraged to report perceived risks to care and to ask questions if they do not understand what they are told or what they should do.
[2023-07-21 13:04] LABS: Glucose Point of Care 106 mg/dl (65-105)
--- NOTE | 2023-07-21 14:16 | PM.IMHP ---
H&P: HPI History of Present Illness Date/Time: 07/21/23 12:45 Chief Complaint: Abdominal pain. Narrative: This is a 58-year-old male with end-stage renal disease on hemodialysis, hypertension, hyperlipidemia, gastroesophageal reflux disease, and alcohol abuse who presented to the emergency department via EMS from a dialysis center for evaluation of abdominal pain. The patient provides the following history. He is known to the hospitalist service from a recent admission about a week and half ago at which time he was found to have MSSA bacteremia for which he was discharged on IV antibiotics (cefazolin with dialysis). He has been doing okay since that time up until this weekend when he gradually started to experience diffuse abdominal discomfort which she has a hard time describing aside from ?a constant hurt.? He has had quite a bit of nausea since that time and has tried to induce emesis to no avail. He also reports having multiple episodes of nonbloody diarrhea though that has since resolved. He has not been sleeping well the last couple of days due to the pain and last night he drank a couple bottles of wine and was able to sleep. This morning he went to dialysis and he complained of similar abdominal discomfort and he was sent to the ED. labs were significant for a WBC count of 6.4, hemoglobin 7.9, sodium 132, potassium 5.9, lipase 480. CT of the abdomen and pelvis showed no acute abdominal abnormalities. Dialysis was unable to be performed today and he was treated for his hyperkalemia with normalization of his potassium level. He is being admitted in this setting for close monitoring. At the time my evaluation he states that his abdominal pain has since resolved. He is tolerating a clear liquid diet and reports that he is hungry. He does have some tremors of the hands and is receiving Librium and Ativan as needed for withdrawal type symptoms. He denies fever, chills, sweats, chest pain, shortness of breath, vomiting, and dysuria. Review of Systems Review of Systems: Twelve systems were reviewed and are negative except for as per HPI. [facility] Past Medical History Medical History Chronic alcohol use Chronic anemia End-stage renal disease on hemodialysis Gastroesophageal reflux disease Hyperlipidemia Hypertension Surgical History Surgical History History of arteriovenous graft Social History Social History Social History: Surrogate medical decision maker: Noemy Hollingsworth, niece. Code status: Full code. Smoking status: Never smoker Second hand tobacco smoke exposure: No Alcohol intake: current Drinks per week: 14 Substance use: current Substance use type: marijuana Last use: 07/20/23 Do You Feel Safe in your Home?: Yes Lack of Transportation: No Lack of Food: Never True Current Housing: I Have Housing Concerned About Future Housing: No Difficulty Paying Gas/Electric Bills: No Difficulty Paying for Meds: No Currently Unemployed: No Education: Grade School Difficulty w/ Childcare or Family Care: No Spiritual care concerns: No Meds Home Medications and Allergies Home Medications Medication Instructions Recorded Confirmed Type allopurinol 300 mg tablet 300 mg PO DAILY 07/02/23 07/21/23 History atorvastatin 40 mg tablet 40 mg PO DAILY 07/02/23 07/21/23 History clonidine HCl 0.2 mg tablet 0.2 mg PO BID 07/02/23 07/21/23 History ergocalciferol (vitamin D2) 1,250 50,000 mcg PO WEEKLY 07/02/23 07/21/23 History mcg (50,000 unit) capsule pantoprazole 40 mg tablet,delayed 40 mg PO DAILY 07/02/23 07/21/23 History release sodium bicarbonate 650 mg tablet 650 mg PO BID 07/02/23 07/21/23 History sevelamer carbonate 800 mg tablet 2,400 mg PO TIDWM 07/09/23 07/21/23 History cefazolin 1 gram intravenous 1 g IV 3XW 07/21/2307/01
[2023-07-21 14:54] LABS: Immature Reticulocyte Fraction 8.6 % (3.0-15.9); Reticulocyte Hemoglobin Conten 35.4 pg (28.2-35.7); Reticulocyte Percent 3.57 % (0.7-4.3); Reticulocytes Absolute 0.09 M/mm3 (0.02-0.1)
[2023-07-21 15:05] LABS: Prothrombin Time 13.6 Seconds (11.1-14.7)
[2023-07-21 15:06] LABS: Partial Thromboplastin Time 32.4 SECONDS (22.3-36.8)
[2023-07-21 15:32] LABS: MRSA (PCR) NOT DETECTED (NOT DETECTE)
[2023-07-21] MEDS: chlordiazePOXIDE (*CRX) 25 MG CAPSULE PO ×2 (15:43→21:02)
[2023-07-21 15:52] LABS: Iron 45 ug/dL (49-181)
[2023-07-21 16:02] LABS: Percent Iron Saturation 23 % (20-50)
[2023-07-21 16:06] LABS: Magnesium 1.7 mg/dL (1.6-2.3); Triglycerides 48 mg/dL (<150)
[2023-07-21 16:25] LABS: Thyroid Stimulating Hormone Reflex 0.962 uIU/mL (0.465-4.68)
[2023-07-21] MEDS: SODIUM BICARBONATE TAB 650 MG TABLET PO (16:42)
[2023-07-21] MEDS: SEVELAMER CARBONATE 800 MG TABLET 2400 MG PO (16:42)
[2023-07-21 17:10] LABS: Folic Acid 18.2 ng/mL (2.76->20)
[2023-07-21 17:55] LABS: Glucose Point of Care 138 mg/dl (65-105)
[2023-07-21] MEDS: cloNIDine HCL 0.2 MG TABLET PO (20:15)
[2023-07-21] MEDS: PANTOPRAZOLE SODIUM IV 40 MG VIAL IV PUSH (20:15)
[2023-07-21] MEDS: HEPARIN SODIUM 5,000 UNITS/ML VIAL 5000 UNITS SUB-Q (20:15)
[2023-07-22] VITALS (27 sets, daily range): BP systolic 134–168; BP diastolic 71–96; PULSE 73–93; RESP 12–20; TEMP 36.2–37.1; O2SAT 100
[2023-07-22 00:27] LABS: Glucose Point of Care 83 mg/dl (65-105)
[2023-07-22 05:01] LABS: Hemoglobin 7.7 g/dL (14.0-18.0); Mean Corpuscular HGB Conc 30.8 g/dl (32-36); Mean Corpuscular Hemoglobin 32.1 pg (26-34); Mean Corpuscular Volume 104.2 fl (80-100); Mean Platelet Volume 8.7 fl (7.4-10.4); Platelet Count Result 351 k/mm3 (150-375); Red Cell Distribution Width 16.3 % (11.5-14.5); White Blood Count 5.7 K/mm3 (4.5-10.0)
[2023-07-22 05:12] LABS: Alanine Aminotransferase 7 U/L (6-50); Albumin Level 3.5 g/dL (3.5-5.1); Alkaline Phosphatase 91 U/L (38-126); Anion Gap 9 mmol/L (8-16); Aspartate Amino Transferase 24 U/L (17-59); Bilirubin,Total 0.5 mg/dL (0.2-1.3); Blood Urea Nitrogen 53 mg/dL (9-20); Calcium 8.9 mg/dL (8.4-10.2); Carbon Dioxide 29 mmol/L (22-30); Chloride 99 mmol/L (98-107); Estimated CRCL calculation 9 ml/min; Estimated Glomerular Filt Rate 8; Glucose 106 mg/dL (65-110); Sodium 137 mmol/L (137-145)
[2023-07-22] MEDS: chlordiazePOXIDE (*CRX) 25 MG CAPSULE PO ×3 (07:14→21:35)
[2023-07-22] MEDS: SEVELAMER CARBONATE 800 MG TABLET 2400 MG PO ×3 (08:13→18:26)
[2023-07-22] MEDS: ATORVASTATIN 40 MG TABLET PO (08:14)
[2023-07-22] MEDS: VITAMIN B CMPLX/VIT C/FOLIC AC 1 CAPSULE 1 CAP PO (08:14)
[2023-07-22] MEDS: THIAMINE HCL 100 MG TABLET PO (08:14)
[2023-07-22] MEDS: FOLIC ACID 1 MG TABLET PO (08:15)
[2023-07-22] MEDS: SODIUM BICARBONATE TAB 650 MG TABLET PO ×2 (08:15→18:26)
[2023-07-22] MEDS: allopurinoL 300 MG TABLET PO (08:15)
[2023-07-22] MEDS: cloNIDine HCL 0.2 MG TABLET PO ×2 (08:16→20:40)
[2023-07-22] MEDS: PANTOPRAZOLE SODIUM IV 40 MG VIAL IV PUSH ×2 (08:21→20:41)
[2023-07-22] MEDS: HEPARIN SODIUM 5,000 UNITS/ML VIAL 5000 UNITS SUB-Q ×2 (08:21→20:40)
[2023-07-22 12:31] LABS: Glucose Point of Care 109 mg/dl (65-105)
--- NOTE | 2023-07-22 15:07 | PM.IMPN ---
Progress Note: A&P Assessment and Plan (1) Abdominal pain: Code(s): R10.9 - Unspecified abdominal pain Status: Acute Assessment and Plan: Patient presents with abdominal pain. CT A/P showing no acute findings. CXR clear. UA noted and UCx sent. BCx NGTD LFTs normal. Lipase slightly elevated at 480 but no radiographic evidence of pancreatitis. Consider gastroenteritis given the complaints of diarrhea Suspect abd pain related to withdrawal. PPI started for possible alcoholic gastritis or PUD. Symptoms have resolved. (2) Alcohol withdrawal: Code(s): F10.939 - Alcohol use, unspecified with withdrawal, unspecified Status: Acute Assessment and Plan: Concern for alcohol withdrawal. CIWA was up to 16 but mostly 4-5 range. Continue thiamine and folate Continue scheduled Librium Ativan IV available as needed for higher CIWA scores (3) Chronic anemia: Code(s): D64.9 - Anemia, unspecified Status: Acute Assessment and Plan: Patient with chronic anemia with Hgb 8-9 range earleir this month but now in the 7 range. Having BRBPR today. Possibly hemorrhoidal. Iron low at 45 but TIBC 196 with TSat at 23%. Ferritin elevated at 1490. B12/folate normal. Continue PPI Monitor HH closely. GI consult if guaiac positive. (4) Acute hyperkalemia: Code(s): E87.5 - Hyperkalemia Status: Acute Assessment and Plan: Potassium 5.9 related to ESRD. Hyperkalemia treated approrpiately and repeat values better Plan for HD tomorrow. Continue HD to control hyperkalemia. Continue renal diet (5) End-stage renal disease on hemodialysis: Code(s): N18.6 - End stage renal disease; Z99.2 - Dependence on renal dialysis Status: Acute Assessment and Plan: Patient with ESRD on HD Nephrology consulted for HD schedule (6) Gastroesophageal reflux disease: Code(s): K21.9 - Gastro-esophageal reflux disease without esophagitis Status: Acute Assessment and Plan: PPI (7) MSSA bacteremia: Code(s): R78.81 - Bacteremia; B95.61 - Methicillin susceptible Staphylococcus aureus infection as the cause of diseases classified elsewhere Status: Acute Assessment and Plan: Continue cefazolin with dialysis for recent MSSA bacteremia Plan DVT Prophylaxis - Heparin Code status - full Subjective Date/time seen: 07/22/23 15:07 Interval history: 58-year-old male with end-stage renal disease on hemodialysis, hypertension, hyperlipidemia, gastroesophageal reflux disease, and alcohol abuse who presented to the emergency department via EMS from a dialysis center for evaluation of abdominal pain.? No further abdominal pain. No n/v. +BMs with streaky blood in stool (mostly on the toilet papaer). No hx of hemorrhoids. Colonoscopy was 9 years ago and was negative. No hx of gastric or duodenal ulcers. No Cp or SOB. Shakes are better today. Exam Narrative: AF 98.0 138/86 83 20 100% ra Gen - NARD Chest - CTA bilaterally, nml RR CV - RRR S1/S2. tele showing rare PVCs Abd - Soft, NT/ND, Positive BS Ext - No pedal edema. Thrill and bruit LUE fistula Neuro - Alert and oriented. Nonfocal exam. Psych - Nml mood and affect. no tremors Skin - Warm and dry, no diaphoresis Objective Data Vital Signs Vital Signs: Vital Signs - 24 hr 07/21/23 15:37 07/21/23 16:00 07/21/23 16:00 Temperature 98.5 F Pulse Rate 103 H 104 H Respiratory Rate 14 Blood Pressure 150/87 H Pulse Oximetry 100 Oxygen Delivery Room Air 07/21/23 18:00 07/21/23 19:45 07/21/23 20:00 Temperature 97.2 F L Pulse Rate 100 88 88 Respiratory Rate 16 Blood Pressure 180/95 H Pulse Oximetry 100 Oxygen Delivery 07/21/23 20:00 07/21/23 20:00 07/21/23 20:00 Temperature Pulse Rate 88 90 Respiratory Rate 16 Blood Pressure 180/95 H Pulse Oximetry 100 Oxygen Delivery Room Air 07/22/23 00:00 0
[2023-07-22] MEDS: SODIUM CHLORIDE 0.9% IV 1,000 ML 999 ML IV CONT (15:11)
--- NOTE | 2023-07-22 15:33 | PM.PNNEP ---
Progress Note: A&P Assessment and Plan (1) End stage renal disease: Code(s): N18.6 - End stage renal disease Status: Chronic Assessment and Plan: HD today transition back M/W/F dialysis schedule tomorrow follow electrolytes, volume status, and clearance follows with Dr. Hayes at [facility] (2) Acute hyperkalemia: Code(s): E87.5 - Hyperkalemia Status: Acute Assessment and Plan: as noted on admission s/p medical therapy with improvement noted follow repeat K+ levels (3) Abdominal pain: Code(s): R10.9 - Unspecified abdominal pain Status: Acute Assessment and Plan: resolved at this time related to alcohol consumption the eveninf before admission(?) CT scan of abd/pelvis negative supportive therapy (4) Bacteremia: Code(s): R78.81 - Bacteremia Status: Acute Assessment and Plan: as noted on last hospitalization cultures with MSSA receiving antibiotics with outpatient dialysis (for a total of 4 weeks) noted negative YUN and ultrasound of AV access (on last hospital stay) continue antibiotics here (Ancef) (5) Hypertension: Code(s): I10 - Essential (primary) hypertension Status: Chronic Assessment and Plan: fluctuating at this time resume home medications follow trend of hemodynamics (6) Anemia: Code(s): D64.9 - Anemia, unspecified Status: Chronic Assessment and Plan: due to ESRD Epogen with HD follow trend of H/H Will continue to follow. Subjective Date/time seen: 07/22/23 15:33 Interval history: Follow-up for end stage renal disease on hemodialysis. Tolerating dialysis treatment at the time of my visit (seen on HD at 3:20PM); no issue/events overnight or earlier this morning; abdominal pain appears to have resolved; requesting a reduction in dialysis treatment time since he is due for dialysis again tomorrow. Exam Narrative: General: WD/WN male in NAD Heart: normal S1 and S2; no rub Lungs: clear breath sounds Abdomen: soft, nontender, nondistended, positive bowel sounds Extremities: no cyanosis or clubbing; no edema Skin: warm and dry Objective Data Vital Signs Vital Signs: Vital Signs Temp Pulse Resp BP Pulse Ox O2 Del Method 07/22/23 15:11 98.8 F 73 18 154/92 H 07/22/23 14:03 83 07/22/23 08:00 83 07/22/23 11:54 98.0 F 82 20 138/86 100 07/22/23 08:00 97.4 F L 84 12 162/96 H 100 07/22/23 06:48 73 07/22/23 04:00 76 07/22/23 04:49 97.6 F 76 16 149/87 H 100 07/22/23 04:00 79 20 100 Room Air 07/22/23 04:00 167/91 H 07/22/23 02:00 79 07/22/23 00:00 76 07/22/23 00:27 97.2 F L 76 20 167/91 H 100 07/21/23 22:00 83 07/22/23 00:00 90 16 100 Room Air 07/21/23 20:00 90 07/21/23 20:00 180/95 H 07/21/23 20:00 88 16 100 Room Air 07/21/23 20:00 88 07/21/23 19:45 97.2 F L 88 16 180/95 H 100 Intake/Output Intake/Output: Intake & Output 07/19/23 07/20/23 07/21/23 07/22/23 23:59 23:59 23:59 23:59 Intake Total 120 2380 Output Total 275 650 Balance -155 1730 Meds/Results Medications: Active Medications Generic Name Dose Route Start Last Admin Trade Name Freq PRN Reason Stop Dose Admin Acetaminophen 650 mg 07/21/23 14:22 Acetaminophen 325 Mg Tablet PO Q6H PRN Mild Pain (1-3) or Fever Allopurinol 300 mg 07/22/23 09:00 07/22/23 08:15 Allopurinol 300 Mg Tablet PO 300 mg DAILY SHERRIE Administration Atorvastatin Calcium 40 mg 07/22/23 09:00 07/22/23 08:14 Atorvastatin 40 Mg Tablet PO 40 mg DAILY SHERRIE Administration Chlordiazepoxide HCl 25 mg 07/21/23 14:25 07/22/23 13:09 Chlordiazepoxide (*Crx) 25 Mg Capsule PO 25 mg Q8HR SHERRIE Administration Clonidine HCl 0.2 mg 07/21/23 21:00 07/22/23 08:16 Clonidine Hcl 0.2
--- NOTE | 2023-07-22 15:33 | P.PNNP_ITS ---
Progress Note: A&P Assessment and Plan (1) End stage renal disease: Code(s): N18.6 - End stage renal disease Status: Chronic Assessment and Plan: * HD today * transition back M/W/ dialysis schedule tomorrow * follow electrolytes, volume status, and clearance * follows with Dr. Hayes at [facility] (2) Acute hyperkalemia: Code(s): E87.5 - Hyperkalemia Status: Acute Assessment and Plan: * as noted on admission * s/p medical therapy with improvement noted * follow repeat K+ levels (3) Abdominal pain: Code(s): R10.9 - Unspecified abdominal pain Status: Acute Assessment and Plan: * resolved at this time * related to alcohol consumption the eveninf before admission(?) * CT scan of abd/pelvis negative * supportive therapy (4) Bacteremia: Code(s): R78.81 - Bacteremia Status: Acute Assessment and Plan: * as noted on last hospitalization * cultures with MSSA * receiving antibiotics with outpatient dialysis (for a total of 4 weeks) * noted negative YUN and ultrasound of AV access (on last hospital stay) * continue antibiotics here (Ancef) (5) Hypertension: Code(s): I10 - Essential (primary) hypertension Status: Chronic Assessment and Plan: * fluctuating at this time * resume home medications * follow trend of hemodynamics (6) Anemia: Code(s): D64.9 - Anemia, unspecified Status: Chronic Assessment and Plan: * due to ESRD * Epogen with HD * follow trend of H/H Will continue to follow. Subjective Date/time seen: 07/22/23 15:33 Interval history: Follow-up for end stage renal disease on hemodialysis. Tolerating dialysis treatment at the time of my visit (seen on HD at 3:20PM); no issue/events overnight or earlier this morning; abdominal pain appears to have resolved; requesting a reduction in dialysis treatment time since he is due for dialysis again tomorrow. Exam Narrative: General: WD/WN male in NAD Heart: normal S1 and S2; no rub Lungs: clear breath sounds Abdomen: soft, nontender, nondistended, positive bowel sounds Extremities: no cyanosis or clubbing; no edema Skin: warm and dry Objective Data Vital Signs Vital Signs: Vital Signs Temp Pulse Resp BP Pulse Ox O2 Del Method 07/22/23 15:11 98.8 F 73 18 154/92 H 07/22/23 14:03 83 07/22/23 08:00 83 07/22/23 11:54 98.0 F 82 20 138/86 100 07/22/23 08:00 97.4 F L 84 12 162/96 H 100 07/22/23 06:48 73 07/22/23 04:00 76 07/22/23 04:49 97.6 F 76 16 149/87 H 100 07/22/23 04:00 79 20 100 Room Air 07/22/23 04:00 167/91 H 07/22/23 02:00 79 07/22/23 00:00 76 07/22/23 00:27 97.2 F L 76 20 167/91 H 100 07/21/23 22:00 83 07/22/23 00:00 90 16 100 Room Air 07/21/23 20:00 90 07/21/23 20:00 180/95 H 07/21/23 20:00 88 16 100 Room Air 07/21/23 20:00 88 07/21/23 19:45 97.2 F L 88 16 180/95 H 100 Intake/Output Intake/Output: Intake & Output 07/19/23 07/20/23 07/21/23 07/22/23 23:59 23:59 23:59 23:59
[2023-07-22 16:04] LABS: Lipase 416 U/L (23-300)
[2023-07-22 16:45] LABS: IFOB Positive Control Positive; Immunochemical Fecal Occult Bl Negative (N)
[2023-07-22] MEDS: diphenhydrAMINE HCl CAP 25 MG CAPSULE PO ×2 (17:02→23:02)
[2023-07-22] MEDS: EPOETIN ALFA-EPBX 10,000 UNITS/ML VIAL 10000 UNITS IV PUSH (17:30)
[2023-07-22 18:25] LABS: Glucose Point of Care 107 mg/dl (65-105)
[2023-07-22] MEDS: ceFAZolin 2 GM/D5W 50 ML 2 GM/50 ML BAG IVPB (18:28)
[2023-07-23] VITALS (20 sets, daily range): BP systolic 137–159; BP diastolic 80–92; PULSE 72–90; RESP 16–18; TEMP 36.7–37; O2SAT 97–100
[2023-07-23 06:30] LABS: Basophils Percent Auto 0.5 % (0.2-1.2); Eosinophils Absolute Auto 0.2 K/mm3 (0-0.3); Eosinophils Percent Auto 3.4 % (0-4.4); Hematocrit 25.2 % (42.0-52.0); Hemoglobin 7.7 g/dL (14.0-18.0); Immature Granulocyte Absolute 0.02 K/mm3 (0.00-0.031); Immature Granulocyte Percent A 0.3 % (0-0.5); Lymphocytes Absolute Auto 1.59 K/mm3 (0.9-3.2); Lymphocytes Percent Auto 27.2 % (18.3-44.2); Mean Corpuscular HGB Conc 30.6 g/dl (32-36); Mean Corpuscular Hemoglobin 32.4 pg (26-34); Mean Corpuscular Volume 105.9 fl (80-100); Mean Platelet Volume 9.2 fl (7.4-10.4); Monocytes Absolute Auto 0.4 K/mm3 (0.1-0.6); Neutrophils Absolute Auto 3.7 K/mm3 (1.3-6.7); Neutrophils Percent Auto 62.6 % (45.5-73.1); Platelet Count Result 329 k/mm3 (150-375); Red Blood Count 2.38 M/mm3 (4.6-6.20); Red Cell Distribution Width 16.9 % (11.5-14.5); White Blood Count 5.9 K/mm3 (4.5-10.0)
[2023-07-23] MEDS: chlordiazePOXIDE (*CRX) 25 MG CAPSULE PO (06:30)
[2023-07-23 06:38] LABS: Albumin Level 3.3 g/dL (3.5-5.1); Anion Gap 7 mmol/L (8-16); Blood Urea Nitrogen 30 mg/dL (9-20); Carbon Dioxide 29 mmol/L (22-30); Chloride 101 mmol/L (98-107); Estimated CRCL calculation 14 ml/min; Estimated Glomerular Filt Rate 12; Glucose 93 mg/dL (65-110); Magnesium 1.8 mg/dL (1.6-2.3); Phosphorus 3.5 mg/dL (2.5-4.5); Sodium 137 mmol/L (137-145)
[2023-07-23 07:06] LABS: Anisocytosis 1+ (NORMAL); Macrocytosis 1+ (NORMAL); Platelet Estimate Adequate (Adequate); Schistocytes None Seen (NORMAL)
--- NOTE | 2023-07-23 08:43 | PM.IMPN ---
Progress Note: A&P Assessment and Plan (1) Abdominal pain: Code(s): R10.9 - Unspecified abdominal pain Status: Acute Assessment and Plan: Patient presents with abdominal pain. CT A/P showing no acute findings. CXR clear. UA noted and UCx sent. BCx NGTD LFTs normal. Lipase slightly elevated at 480 but no radiographic evidence of pancreatitis. Consider gastroenteritis given the complaints of diarrhea Suspect abd pain related to withdrawal. PPI started for possible alcoholic gastritis or PUD. Symptoms have resolved. (2) Alcohol withdrawal: Code(s): F10.939 - Alcohol use, unspecified with withdrawal, unspecified Status: Acute Assessment and Plan: Concern for alcohol withdrawal. CIWA was up to 16 but mostly 4-5 range. Continue thiamine and folate Continue scheduled Librium Ativan IV available as needed for higher CIWA scores (3) Chronic anemia: Code(s): D64.9 - Anemia, unspecified Status: Acute Assessment and Plan: Patient with chronic anemia with Hgb 8-9 range earleir this month but now in the 7 range. Having BRBPR today. Possibly hemorrhoidal. Iron low at 45 but TIBC 196 with TSat at 23%. Ferritin elevated at 1490. B12/folate normal. Continue PPI Monitor HH closely. GI consult if guaiac positive. (4) Acute hyperkalemia: Code(s): E87.5 - Hyperkalemia Status: Acute Assessment and Plan: Potassium 5.9 related to ESRD. Hyperkalemia treated approrpiately and repeat values better Plan for HD tomorrow. Continue HD to control hyperkalemia. Continue renal diet (5) End-stage renal disease on hemodialysis: Code(s): N18.6 - End stage renal disease; Z99.2 - Dependence on renal dialysis Status: Acute Assessment and Plan: Patient with ESRD on HD Nephrology consulted for HD schedule (6) Gastroesophageal reflux disease: Code(s): K21.9 - Gastro-esophageal reflux disease without esophagitis Status: Acute Assessment and Plan: PPI (7) MSSA bacteremia: Code(s): R78.81 - Bacteremia; B95.61 - Methicillin susceptible Staphylococcus aureus infection as the cause of diseases classified elsewhere Status: Acute Assessment and Plan: Continue cefazolin with dialysis for recent MSSA bacteremia Plan DVT Prophylaxis - Heparin Code status - full Subjective Date/time seen: 07/23/23 08:43 Interval history: 58-year-old male with end-stage renal disease on hemodialysis, hypertension, hyperlipidemia, gastroesophageal reflux disease, and alcohol abuse who presented to the emergency department via EMS from a dialysis center for evaluation of abdominal pain.? No further abdominal pain. No n/v. +BMs with streaky blood in stool (mostly on the toilet papaer). No hx of hemorrhoids. Colonoscopy was 9 years ago and was negative. No hx of gastric or duodenal ulcers. No Cp or SOB. Shakes are better today. Review of Systems Review of Systems: 12 point review of systems was assessed and was negative except as noted in the HPI Exam Narrative: AF 98.0 138/86 83 20 100% ra Gen - NARD Chest - CTA bilaterally, nml RR CV - RRR S1/S2. tele showing rare PVCs Abd - Soft, NT/ND, Positive BS Ext - No pedal edema. Thrill and bruit LUE fistula Neuro - Alert and oriented. Nonfocal exam. Psych - Nml mood and affect. no tremors Skin - Warm and dry, no diaphoresis Objective Data Vital Signs Vital Signs: Vital Signs - 24 hr 07/22/23 11:54 07/22/23 14:03 07/22/23 15:11 Temperature 98.0 F 98.8 F Pulse Rate 82 83 73 Respiratory Rate 20 18 Blood Pressure 138/86 154/92 H Pulse Oximetry 100 Oxygen Delivery 07/22/23 18:17 07/22/23 15:21 07/22/23 16:15 Temperature 98.6 F Pulse Rate 93 73 80 Respiratory Rate 20 Blood Pressure 145/91 H 146/92 H 168/94 H Pulse Oximetry 100 Oxygen Delivery 07/22/23 18:02 07/22/23 15:30 07/22/23 15:45 Temperat
[2023-07-23] MEDS: THIAMINE HCL 100 MG TABLET PO (09:14)
[2023-07-23] MEDS: SEVELAMER CARBONATE 800 MG TABLET 2400 MG PO ×2 (09:14→12:13)
[2023-07-23] MEDS: SODIUM BICARBONATE TAB 650 MG TABLET PO (09:14)
[2023-07-23] MEDS: allopurinoL 300 MG TABLET PO (09:14)
[2023-07-23] MEDS: FOLIC ACID 1 MG TABLET PO (09:14)
[2023-07-23] MEDS: ATORVASTATIN 40 MG TABLET PO (09:14)
[2023-07-23] MEDS: VITAMIN B CMPLX/VIT C/FOLIC AC 1 CAPSULE 1 CAP PO (09:15)
[2023-07-23] MEDS: PANTOPRAZOLE SODIUM IV 40 MG VIAL IV PUSH (09:18)
--- NOTE | 2023-07-23 09:56 | PM.DS ---
DS: Admitting Diagnosis Discharge Date 07/23/23 Admitting Diagnosis abdominal pain DS: Discharge Diagnosis Discharge Diagnosis (1) Abdominal pain: Code(s): R10.9 - Unspecified abdominal pain Status: Acute Assessment and Plan: Patient presents with abdominal pain. CT A/P showing no acute findings. CXR clear. UA noted and UCx sent. BCx NGTD LFTs normal. Lipase slightly elevated at 480 but no radiographic evidence of pancreatitis. Consider gastroenteritis given the complaints of diarrhea Suspect abd pain related to withdrawal. PPI started for possible alcoholic gastritis or PUD. Symptoms have resolved. (2) Alcohol withdrawal: Code(s): F10.939 - Alcohol use, unspecified with withdrawal, unspecified Status: Acute Assessment and Plan: Concern for alcohol withdrawal. CIWA was up to 16 but mostly 4-5 range. Continue thiamine and folate Continue scheduled Librium Ativan IV available as needed for higher CIWA scores (3) Chronic anemia: Code(s): D64.9 - Anemia, unspecified Status: Acute Assessment and Plan: Patient with chronic anemia with Hgb 8-9 range earleir this month but now in the 7 range. Having BRBPR today. Possibly hemorrhoidal. Iron low at 45 but TIBC 196 with TSat at 23%. Ferritin elevated at 1490. B12/folate normal. Continue PPI Monitor HH closely. GI consult if guaiac positive. (4) Acute hyperkalemia: Code(s): E87.5 - Hyperkalemia Status: Acute Assessment and Plan: Potassium 5.9 related to ESRD. Hyperkalemia treated approrpiately and repeat values better Plan for HD tomorrow. Continue HD to control hyperkalemia. Continue renal diet (5) End-stage renal disease on hemodialysis: Code(s): N18.6 - End stage renal disease; Z99.2 - Dependence on renal dialysis Status: Acute Assessment and Plan: Patient with ESRD on HD Nephrology consulted for HD schedule (6) Gastroesophageal reflux disease: Code(s): K21.9 - Gastro-esophageal reflux disease without esophagitis Status: Acute Assessment and Plan: PPI (7) MSSA bacteremia: Code(s): R78.81 - Bacteremia; B95.61 - Methicillin susceptible Staphylococcus aureus infection as the cause of diseases classified elsewhere Status: Acute Assessment and Plan: Continue cefazolin with dialysis for recent MSSA bacteremia Plan DVT Prophylaxis - Heparin Code status - full DS: Summary Hospital Course Hospital Course: 58-year-old male with end-stage renal disease on hemodialysis, hypertension, hyperlipidemia, gastroesophageal reflux disease, and alcohol abuse who presented to the emergency department via EMS from a dialysis center for evaluation of abdominal pain.? Patient presents with abdominal pain. CT A/P showing no acute findings. CXR clear. UA noted and UCx sent. BCx NGTD LFTs normal. Lipase slightly elevated at 480 but no radiographic evidence of pancreatitis. Consider gastroenteritis given the complaints of diarrhea Suspect abd pain related to withdrawal. PPI started for possible alcoholic gastritis or PUD. Symptoms have resolved. Librium weaned off, CIWA less than 5 consistently Cont ancef with HD until next Friday, last dose, aug 01. Please see above and med rec for details. Patient was discharged in stable condition with close outpatient follow-up. Time Spent with Patient Time attestation: Total time spent providing and/or coordinating discharge services: Exam Narrative: AF 98.0 138/86 83 20 100% ra Gen - NARD Chest - CTA bilaterally, nml RR CV - RRR S1/S2. tele showing rare PVCs Abd - Soft, NT/ND, Positive BS Ext - No pedal edema. Thrill and bruit LUE fistula Neuro - Alert and oriented. Nonfocal exam. Psych - Nml mood and affect. no tremors Skin - Warm and dry, no diaphoresis DS: Data Data Completed and Pending Labs on day of discharge: Labs from last 24 hours 0
[2023-07-23 12:13] LABS: Glucose Point of Care 77 mg/dl (65-105)
[2023-07-23] MEDS: diphenhydrAMINE HCl CAP 25 MG CAPSULE PO (13:03)
--- NOTE | 2023-07-23 13:50 | P.PNNP_ITS ---
Progress Note: A&P Assessment and Plan (1) End stage renal disease: Code(s): N18.6 - End stage renal disease Status: Chronic Assessment and Plan: * HD today * transition back M/W/F dialysis schedule today * follow electrolytes, volume status, and clearance * follows with Dr. Hayes at [facility] (2) Acute hyperkalemia: Code(s): E87.5 - Hyperkalemia Status: Acute Assessment and Plan: * as noted on admission * s/p medical therapy with improvement noted * follow repeat K+ levels (3) Abdominal pain: Code(s): R10.9 - Unspecified abdominal pain Status: Acute Assessment and Plan: * resolved at this time * related to alcohol consumption the eveninf before admission(?) * CT scan of abd/pelvis negative * supportive therapy (4) Bacteremia: Code(s): R78.81 - Bacteremia Status: Acute Assessment and Plan: * as noted on last hospitalization * cultures with MSSA * receiving antibiotics with outpatient dialysis (for a total of 4 weeks) * noted negative YUN and ultrasound of AV access (on last hospital stay) * continue antibiotics here (Ancef) (5) Hypertension: Code(s): I10 - Essential (primary) hypertension Status: Chronic Assessment and Plan: * fluctuating at this time * resume home medications * follow trend of hemodynamics (6) Anemia: Code(s): D64.9 - Anemia, unspecified Status: Chronic Assessment and Plan: * due to ESRD * Epogen with HD * follow trend of H/H Not opposed to discharge from renal perspective if patient is otherwise medica lly stable. Will continue to follow. Subjective Date/time seen: 07/23/23 13:50 Interval history: Follow-up for end stage renal disease on hemodialysis. Tolerating dialysis treatment at the time of my visit (seen on HD at 1:40PM); no issue/events overnight or earlier this morning; anxious for discharge and asking treatment time to be reduced to ensure he can catch the bus home. Exam Narrative: General: WD/WN male in NAD Heart: normal S1 and S2; no rub Lungs: clear breath sounds Abdomen: soft, nontender, nondistended, positive bowel sounds Extremities: no cyanosis or clubbing; no edema Skin: warm and intact Objective Data Vital Signs Vital Signs: Vital Signs Temp Pulse Resp BP Pulse Ox O2 Del Method 07/23/23 13:45 79 137/81 07/23/23 13:30 80 141/84 H 07/23/23 13:13 75 142/81 H 07/23/23 13:02 98.1 F 75 16 152/87 H 07/23/23 12:00 73 07/23/23 08:00 72 07/23/23 05:57 98.4 F 72 18 138/90 100 07/23/23 04:00 74 07/23/23 00:00 84 07/22/23 20:00 140/78 07/22/23 19:58 90 18 100 Room Air 07/22/23 19:32 97.4 F L 90 18 140/78 100 07/22/23 17:53 82 155/91 H 07/22/23 17:45 83 159/90 H 07/22/23 17:30 84 154/91 H 07/22/23 17:15 84 134/71 07/22/23 17:00 84 149/84 H 07/22/23 16:45 83 155/92 H 07/22/23 16:30 83 153/87 H 07/22/23 16:00 78 139/87 07/22/23 15:45 74 142/86 H 07/22/23 15:30 74 142/86 H 07/22/23 18:02 98.5 F 84 20 150/83 H 07/22/23 16:
--- NOTE | 2023-07-23 13:50 | PM.PNNEP ---
Progress Note: A&P Assessment and Plan (1) End stage renal disease: Code(s): N18.6 - End stage renal disease Status: Chronic Assessment and Plan: HD today transition back M/W/F dialysis schedule today follow electrolytes, volume status, and clearance follows with Dr. Hayes at [facility] (2) Acute hyperkalemia: Code(s): E87.5 - Hyperkalemia Status: Acute Assessment and Plan: as noted on admission s/p medical therapy with improvement noted follow repeat K+ levels (3) Abdominal pain: Code(s): R10.9 - Unspecified abdominal pain Status: Acute Assessment and Plan: resolved at this time related to alcohol consumption the eveninf before admission(?) CT scan of abd/pelvis negative supportive therapy (4) Bacteremia: Code(s): R78.81 - Bacteremia Status: Acute Assessment and Plan: as noted on last hospitalization cultures with MSSA receiving antibiotics with outpatient dialysis (for a total of 4 weeks) noted negative YUN and ultrasound of AV access (on last hospital stay) continue antibiotics here (Ancef) (5) Hypertension: Code(s): I10 - Essential (primary) hypertension Status: Chronic Assessment and Plan: fluctuating at this time resume home medications follow trend of hemodynamics (6) Anemia: Code(s): D64.9 - Anemia, unspecified Status: Chronic Assessment and Plan: due to ESRD Epogen with HD follow trend of H/H Not opposed to discharge from renal perspective if patient is otherwise medically stable. Will continue to follow. Subjective Date/time seen: 07/23/23 13:50 Interval history: Follow-up for end stage renal disease on hemodialysis. Tolerating dialysis treatment at the time of my visit (seen on HD at 1:40PM); no issue/events overnight or earlier this morning; anxious for discharge and asking treatment time to be reduced to ensure he can catch the bus home. Exam Narrative: General: WD/WN male in NAD Heart: normal S1 and S2; no rub Lungs: clear breath sounds Abdomen: soft, nontender, nondistended, positive bowel sounds Extremities: no cyanosis or clubbing; no edema Skin: warm and intact Objective Data Vital Signs Vital Signs: Vital Signs Temp Pulse Resp BP Pulse Ox O2 Del Method 07/23/23 13:45 79 137/81 07/23/23 13:30 80 141/84 H 07/23/23 13:13 75 142/81 H 07/23/23 13:02 98.1 F 75 16 152/87 H 07/23/23 12:00 73 07/23/23 08:00 72 07/23/23 05:57 98.4 F 72 18 138/90 100 07/23/23 04:00 74 07/23/23 00:00 84 07/22/23 20:00 140/78 07/22/23 19:58 90 18 100 Room Air 07/22/23 19:32 97.4 F L 90 18 140/78 100 07/22/23 17:53 82 155/91 H 07/22/23 17:45 83 159/90 H 07/22/23 17:30 84 154/91 H 07/22/23 17:15 84 134/71 07/22/23 17:00 84 149/84 H 07/22/23 16:45 83 155/92 H 07/22/23 16:30 83 153/87 H 07/22/23 16:00 78 139/87 07/22/23 15:45 74 142/86 H 07/22/23 15:30 74 142/86 H 07/22/23 18:02 98.5 F 84 20 150/83 H 07/22/23 16:15 80 168/94 H 07/22/23 15:21 73 146/92 H 07/22/23 18:17 98.6 F 93 20 145/91 H 100 07/22/23 15:11 98.8 F 73 18 154/92 H Intake/Output Intake/Output: Intake & Output 07/20/23 07/21/23 07/22/23 07/23/23 23:59 23:59 23:59 23:59 Intake Total 120 2620 780 Output Total 275 2650 Balance -155 -30 780 Meds/Results Medications: Active Medications Generic Name Dose Route Start Last Admin Trade Name Mae PRN Reason Stop Dose Admin Acetaminophen 650 mg 07/21/23 14:22 Acetaminophen 325 Mg Tablet PO Q6H PRN Mild Pain (1-3) or Fever Allopurinol 300 mg 07/22/23 09:00 07/23/23 09:14 Allopurinol 300 Mg Tablet PO 300 mg DAILY SHERRIE Administration Atorvastatin Calcium 40 mg
[2023-07-23] MEDS: EPOETIN ALFA-EPBX 10,000 UNITS/ML VIAL 10000 UNITS IV PUSH (14:41)
[2023-07-23] MEDS: SODIUM CHLORIDE 0.9% IV 1,000 ML 999 ML IV CONT (14:42)
--- NOTE | 2023-07-23 16:37 | PC.NURSE ---
Patient was able to discharge after dialysis. Patient did not have a ride but stated the bus is my normal transportation and that's how I'm getting home. Patient did not want us to call taxi and staff was unable to convince him to wait until he had a ride available. Patient was wheeled down to the main entrance and then caught a bus at the hospital bus station.
== END 2023-07-23 16:25 | disposition home or self-care (01) ==
LOC: ANHED 10:29 → ANHIMU 11:50 → ANH3MEDSUR 07-22 21:58
PROVIDERS: Emergency Medicine; Internal Medicine; Physician Assistant; Admitting Provider Hospitalist; Emergency Provider Emergency Medicine; PCP Internal Medicine Infectious Disease; Visit Provider Hospitalist
DX: R10.9 Unspecified abdominal pain (principal); I12.0 Hypertensive chronic kidney disease with stage 5 chronic kidney disease or end stage renal disease; N18.6 End stage renal disease; Z99.2 Dependence on renal dialysis; D63.1 Anemia in chronic kidney disease; E87.5 Hyperkalemia; R78.81 Bacteremia; B95.61 Methicillin susceptible Staphylococcus aureus infection as the cause of diseases classified elsewhere; R74.8 Abnormal levels of other serum enzymes; E78.5 Hyperlipidemia, unspecified; K21.9 Gastro-esophageal reflux disease without esophagitis; F10.939 Alcohol use, unspecified with withdrawal, unspecified; Y90.2 Blood alcohol level of 40-59 mg/100 ml; F12.90 Cannabis use, unspecified, uncomplicated; Z79.899 Other long term (current) drug therapy
CPT/HCPCS: 36415; 71045; 74176; 80048; 80053; 80069; 80307; 81001; 82274; 82607; 82728; 82746; 82948; 83540; 83550; 83690; 83735; 84443; 84478; 85025; 85027; 85046; 85610; 85730; 87040; 87086; 87641; 96367; 96372; 96374; 96375; 96376; 99285; A9270; C9113; G0257; G0378; J0690; J1170; J1644; J1815; J2060; J2405; J7030; Q5105

== ENCOUNTER 2023-10-16 08:53 | Outpatient (CLI) | payer MEDICARE, MEDICAID, SELFPAY ==
--- NOTE | ~2023-10-16 | CT_ITS ---
CT Scan of the Chest without Contrast: Clinical Indication: Lung nodules Technique: Contiguous sections were acquired throughout the chest without intravenous contrast. Dose reduction technique was used on this scan by utilizing automated exposure control and iterative recon struction technique. The dose-length product (DLP) was 120.73 mGy-cm. COMPARISON: 07/12/2023 Findings: There is no evidence of any significant mediastinal, hilar or axillary lymphadenopathy. The mediastin al soft tissues appear normal. There is no evidence of pleural or pericardial effusion. Stable 5 mm nodule along the left fissure. Other nodules/consolidation seen on prior exam are resolve d. Images through the upper abdomen reveal no abnormalities. Extensive DISH of the spine noted. Impression: Interval resolution of suspected inflammatory nodules/consolidation seen on prior exam (right middle lobe and left lower lobe). Probable chronic benign 5 mm nodule along the left fissure, unchanged. Reviewed, dictated and finalized at [facility]. Impression: Interval resolution of suspected inflammatory nodules/consolidation seen on maria isabel or exam (right middle lobe and left lower lobe). Probable chronic benign 5 mm nodule along the left fissure, unchanged.
== END 2023-10-16 08:54 | disposition home or self-care (01) ==
LOC: ANHIMG 08:55
PROVIDERS: PCP Internal Medicine Infectious Disease; Visit Provider Internal Medicine Infectious Disease
DX: R91.8 Other nonspecific abnormal finding of lung field (principal)
CPT/HCPCS: 71250

== ENCOUNTER 2025-04-15 12:44 | Emergency (ER) | payer MEDICARE, MEDICAID, SELFPAY ==
[2025-04-15 12:47] VITALS: BP 150/77; PULSE 87; RESP 16; TEMP 36.2; O2SAT 100
--- OUTSIDE RECORDS SUMMARY | 2025-04-15 12:58 | XMS_ITS | Continuity of Care Document ---
Author Organization [facility] Address [address] [place] [address] Insurance Providers Payer Plan Claims Address Claims Phone Policy Number Group Number Relation Employer Guarantor Name Guarantor Guarantor Address Guarantor Phone [employer] [address] [address], [place] [address] tel:[phone] Self [place]julian Hung[place] [address], [place] [address] [facility] [employer] [facility] MED[employer] RE ADV [facility] [employer] [facility] MEDIC ARE ADV [address] [address], [place] [address] tel:[phone] Self [place]julian Hung[place] [address], [place] [address] [facility] MEDICA RE [address] [place] [employer] MEDIC ARE [address] [address], [place] [address] tel:[phone] Self Harrisonjulian HungHerson [address], [place] [address] Problems Condition ICD9 code ICD10 code SNOMED code Start Date End Date S tatus Essential (primary) hypertension I10 Working End stage renal disease N18.6 Working Dependence on renal dialysis Z99.2 Working Pneumonia, unspecified organism J18.9 Final Anemia, unspecified D64.9 Nena l Essential (primary) hypertension I10 Final End stage renal disease N18.6 Final Abnormal findings on diagnostic imaging of other specified body structures R93.89 Final Alcohol use, unspecified with withdrawal, unspecified F10.939 Final Alcohol use, unspecified, uncomplicated F10.90 Final Other specified abnormal findings of blood chemistry R79.89 Final Bacteremia R78.81 Final Dependence on renal dialysis Z99.2 Final Alcohol use, unspecified with withdrawal, unspecified F10.939 Working Anemia, unspecified D64.9 Work ing End stage renal disease N18.6 Working Dependence on renal dialysis Z99.2 Working Bacteremia R78.81 Working Essential (primary) hypertension I10 Working Methicillin susceptible Staphylococcus aureus infection as the cause of diseases classified elsewhere B95.61 Working Alcohol use, unspecified with withdrawal, unspecified F10.939 Final Unspecified abdominal pain R10.9 Final Hyperkalemia E87.5 Final Anemia, unspecified D64.9 Nena l End stage renal disease N18.6 Final Dependence on renal dialysis Z99.2 Final Gastro-esophageal reflux disease without esophagitis K21.9 Final Bacteremia R78.81 Final Methicillin susceptible Staphylococcus aureus infection as the cause of diseases classified elsewhere B95.61 Final Essential (primary) hypertension I10 Final Results No Results Allergies, adverse reactions, alerts No known allergies and adverse reactions Medications No administered medications reported Vital Signs Date Vital Result Comment 09/15/2024 Inhaled Oxygen Concentration 21.0 % N Temperature 98.5 [degF] N Oxygen Saturation 97 % N Respiratory Rate 16 /min N Heart Rate 100 /min N Blood Pressure Systolic 118 mm[Hg] N Blood Pressure Diastolic 74 mm[Hg] N Body Height 71 [in_i] N Body Weight 191.4 [lb_av] N Body Mass Index 26.7 kg/m2 N Social History No smoking Hx information available Functional Status Category Condition Date Problem (Bowels: Continent) Bowels: Continent Problem (Feeding: Independent) Feeding: Independ ent 09/16/2024 Problem (Toilet use: Indepen dent (on and off, dressing, wiping)) Toilet use: Independent (on and off, dressing, wiping) 09/16/2024 Problem (Bathing: Independen t (or in shower)) Bathing: Independent (or in shower) 09/16/2024 Problem (Dressing: Independe nt (including buttons, zips, laces, etc.)) Dressing: Independent (including buttons, zips, laces, etc.) 09/16/2024 Problem (Grooming: Independe nt face/hair/teeth/ shaving (implements provided)) Grooming: Independent face/hair/teeth/ shaving (implements provided) 09/16/2024 Problem (Bladder: Continent) Bladder: Continent 09/16/2024 Problem (Stairs: Independent) Stairs: Independen t 09/16/2024 Problem (Mobility (on level surfaces): Independent (but may use any aid; for example, stick) >50 yards) Mobility (on level surfaces): Independent (but may use any aid; for example, stick) >50 yards 09/16/2024 Problem (Total score: 100) Total score: 100 08/29 Problem (Transfers (bed to c hair and back): Independent) Transfers (bed to chair and back): Independent 09/16/2024
--- OUTSIDE RECORDS SUMMARY | 2025-04-15 12:58 | XMS_ITS | Clinical Summary ---
Author Organization [facility] Address [address] [place] [address] Care Team Providers Care Plastic Mixer Name Role Phone Unavailable Primary Care Provider Unavailabl e Source Comments [facility],non-owned Affiliates and Associated Physician Practices is amultiple site organization consisting of ambulatory clinics and hospital sitesin [place], [place], [place] and [place]. This disclosure is being madepursuant to the Care Everywhere program and may not contain all information available regarding this patient. Last updated 18.[facility] Allergies No known active allergies Medications * Be aware that medications may not be up to date on this document. Alwaysverify current medications with the patient. allopurinol (Zyloprim) 300 MG tablet 3 Active atorvastatin (Lipitor) 40 MG tablet Take 1 (one) tablet by mouth once daily 3 Active B Jlphvtq-H-Qbifu Acid (Misti-Wendy) Take 1 (one) tablet by mouth once daily 2 Active calcitriol (Rocaltrol) 0.25 MCG capsule Take 1 (one) capsule by mouth 2 times daily Active cloNIDine (Catapres) 0.2 MG tablet Take 1 (one) tablet by mouth 2 times daily Active ergocalciferol (Drisdol) 1.25 MG (05743 UT) capsule Take 1 (one) capsule by mouth 1 Active loratadine (Claritin) 10 MG tablet Take 1 (one) tablet by mouth once daily Active pantoprazole EC (Protonix) 40 MG tablet Take 1 (one) tablet by mouth once daily 3 Active sevelamer carbonate (Renvela) 800 MG TAKE 5 TABLETS BY MOUTH ONCE DAILY WITH MEALS 3 Active sodium bicarbonate 325 MG tablet TAKE 2 TABLETS BY MOUTH TWICE DAILY DIRECTED 2 Active Family History Medical History Relation Name Comments Cancer Maternal Aunt Cancer Maternal Grandmother Cancer Maternal Uncle Cancer - Lung Mother mets to brain Renal Disease Nephew Relation Name Status Comments Father Maternal Aunt Maternal Grandmother Maternal Uncle Mother Nephew Alive Social History Tobacco Use Types Packs/Day Years Used Date Smoking Tobacco: Never Smokeless Tobacco: Never Alcohol Use Standard Drinks/Week Comments Yes 1 (1 standard drink = 0.6 oz pur e alcohol) wine 1 bottle every day. 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 Gender Identity Not on file Sexual Orientation Not on file Plan of Treatment Health Maintenance Due Date Last Done Comments COLOGUARD (AGES 45-75) - COLON CA SCREENING 1964 COLON MONITORING 1964 COLONOSCOPY - COLON CA SCREENING 1964 CT COLONOGRAPHY - COLON CA SCREENING 1965 Colorectal Cancer Screening 1964 FIT - COLON CA SCREENING 1964 FLEX SIG - COLON CA SCREENING 1964 HIV SCREENING 1979 HEPATITIS C SCREENING 05/13/1982 DTAP/TDAP/TD VACCINES (1 - Tdap) 1983 PNEUMOCOCCAL VACCINE 50+ (1 of 1 - PCV) 2014 ZOSTER VACCINE (1 of 2) 2014 DEPRESSION SCREENING 06/30/2024 MEDICARE AWV CALENDAR YEAR 2024 COVID-19 VACCINE ( - season) 2025 INFLUENZA VACCINE (#1) 2025 0, 05/14/2019, 04/17/2018, Additional history exists Respiratory Syncytial Virus (RSV) Vaccine Pt: or over 60 yrs (1 - 1-dose 75+ series) 2039 HEPATITIS B VACCINE Aged Out No longe r eligible based on patient's age to complete this topic HIB VACCINE Aged Out No longer eligi ble based on patient's age to complete this topic HPV VACCINE Aged Out No longer eligi ble based on patient's age to complete this topic MENINGOCOCCAL (Group B) VACCINE SHARED DECISION-MAKING Aged Out No longer eligible based on patient's age to complete this topic MENINGOCOCCAL GROUPS A/C/Y/W VACCINE Aged Out No longer eligible based on patient's age to complete this topic Insurance [address] MANAGED MEDICARE ADV [facility]
--- OUTSIDE RECORDS SUMMARY | 2025-04-15 12:58 | XMS_ITS | Encounter Summary ---
Author Organization [facility] Healthcare Address [address] [place] [address] Care Team Providers Care Account Coordinator Name Role Phone Maria Elena Martell MD Primary Care Provider Adama Mack MD Unavailable [phone] Reason for Visit * Reason Onset Date Comments Prior Auth for Fistulogram 04/13/2025 Prior Auth Not Required per [facility] automated system. Encounter Details Date Type Department Care Team (Late st Contact Info) Description 04/13/2025 [facility] [address] [place] [address] Alex Mack MD [address] [place] [address] [address] [place] [address] Prior Auth for Fistulogram (Prior Auth Not Required per [facility] automated system. ) Social History Tobacco Use Types Packs/Day Years Used Date Smoking Tobacco: Never Smokeless Tobacco: Never AUDIT-C Answer Date Recorded Q1: How often do you have a drink containing alcohol? 4 or more times a week 01/13/2024 Q2: How many drinks containi ng alcohol do you have on a typical day when you are drinking? 3 or 4 Q3: How often do you have si x or more drinks on one occasion? Less than monthly 01/13/2024 Personal Safety Answer Date Recorded Have you ever been in or are you currently in a harmful physical or emotional relationship or is someone making you feel afraid or unsafe? Denies 09/09/2023 Sex and Gender Information Value Date Recorded Sex Assigned at Not on file Legal Sex Male 10:12 AM LAB ANALYST Gender Identity Not on file Sexual Orientation Not on file documented as of this encounter Miscellaneous Notes * Telephone Encounter - Katina Corona RN - 04/14/2025 1:39 PM CDT Received telephone orders today from ARLENE Tovar for patient's procedure to be rescheduled. Dr. Mack will be in the OR on 04/19/25 and will be unable to do fistulogram that day. Procedure rescheduled with ДМИТРИЙ Benson for 05/05/25 @ 0800, patient arrival @ 0600. Follow-up scheduled for 05/24/25 @ 0930. I contacted patient and informed of new dates/times, questions answered, he voiced understanding and agreed. He stated this change actually works better for him. * Telephone Encounter - Katina Corona RN - 04/13/2025 1:43 PM CDT Contacted [facility] to obtain prior authorization for upcoming fistulogram scheduled on 04/19/25. Per automated system, CPT code 12341 with ICD-10 code does NOT require prior authorization. Last 4 digits of reference number [id number]. documented in this encounter Plan of Treatment Upcoming Encounters Date Type Department Care Team (Latest Contact Info) Description 05/05/2025 8:00 AM LAB ANALYST Hospital Encounter [facility] Cardiac Railway Patrol Officer [address] [place] [address] Alex Mack MD [address] [facility] [address] [address] ESRD (end stage renal disease) on dialysis (HCC) 05/05/2025 8:00 AM LAB ANALYST - 05/05/2025 8:46 AM LAB ANALYST Surgery [facility] Cardiac Railway Patrol Officer [address] [place] [address] Alex Mack MD [address] [facility] [address] [place] [address] Dialysis Circuit Angiogram documented as of this encounter Visit Diagnoses Not on filedocumented in this encounter Care Teams Account Coordinator Relationship Specialty Start [place] [address] [place] [id number] PCP - General Internal Medicine 09/09/23 Adama Mack MD [address] [facility] [address] [place] [address] Surgeon Surgery 09/09/23 documented as of this encounter
--- OUTSIDE RECORDS SUMMARY | 2025-04-15 12:58 | XMS_ITS | Encounter Summary ---
Author Organization [facility] Healthcare Address [address] [place] [address] Care Team Providers Care Pug Mill Operator Helper Name Role Phone Cuong Hayes MD Primary Care Provider [phone] Maria Elena Martell MD Primary Care Provider Adama Mack MD Unavailable [phone] Encounter Details Date Type Department Care Team (Late st Contact Info) Description 08/27/2023 [facility]phone [facility] at [facility] [address] [place] [address] Adama Mack MD [address] [facility] [address] [facility] [address] [place] [address] Social History Tobacco Use Types Packs/Day Years Used Date Smoking Tobacco: Never Smokeless Tobacco: Never AUDIT-C Answer Date Recorded Q1: How often do you have a drink containing alc ohol? 2-3 times a week 08/28/2023 Q2: How many drinks containi ng alcohol do you have on a typical day when you are drinking? 1 or 2 08/28/2023 Q3: How often do you have si x or more drinks on one occasion? Never 08/28/2023 Personal Safety Answer Date Recorded Getting School Help Needed Denies Sex and Gender Information Value Date Recorded Sex Assigned at Not on file Legal Sex Male 10:12 AM ALTERNATIVE DISPUTE RESOLUTION MEDIATOR Gender Identity Not on file Sexual Orientation Not on file documented as of this encounter Functional Status * AUDIT-C Score Answer Date of Assessment Author 3 08/28/2023 12:59 PM ALTERNATIVE DISPUTE RESOLUTION MEDIATOR Brett Jackson, RN * Question Answer Date of Assessment Author Q1: How often do you have a drink containing alcohol? 2-3 times a week 08/28/2023 12:59 PM ALTERNATIVE DISPUTE RESOLUTION MEDIATOR Brett Jackson, RN Q2: How many drinks containing alcohol do you have on a typical day when you are drinking? 1 or 2 08/28/2023 12:59 PM ALTERNATIVE DISPUTE RESOLUTION MEDIATOR Brett Jackson, RN Q3: How often do you have six or more drinks on one occasion? Never 08/28/2023 12:59 PM ALTERNATIVE DISPUTE RESOLUTION MEDIATOR Brett Jackson, ДМИТРИЙ documented as of this encounter Plan of Treatment Upcoming Encounters Date Type Department Care Team (Latest Contact Info) Description 05/05/2025 8:00 AM ALTERNATIVE DISPUTE RESOLUTION MEDIATOR Hospital Encounter [facility] Cardiac Database Software Technician [address] [place] [address] [id number] [address] [facility] [facility] [address] [place] [id number] ESRD (end stage renal disease) on dialysis (HCC) 05/05/2025 8:00 AM ALTERNATIVE DISPUTE RESOLUTION MEDIATOR - 05/05/2025 8:46 AM [facility] Surgery [facility] Cardiac Database Software Technician [address] [place] [phone] Alex Mack MD [address] [facility] [address] [place] [address] Dialysis Circuit Angiogram documented as of this encounter Visit Diagnoses Not on filedocumented in this encounter Care Teams Pug Mill Operator Helper Relationship Specialty Start Date End Date Cuong Hayes MD PCP - General Nephrology 05/09/21 09/08/23 [place] [address] [place] [address] PCP - General Internal Medicine 09/09/23 Adama Mack MD [address] [facility] [address] [place] [address] Surgeon Surgery 09/09/23 documented as of this encounter
--- OUTSIDE RECORDS SUMMARY | 2025-04-15 12:58 | XMS_ITS | Encounter Summary ---
Author Organization [facility] Healthcare Address [address] [facility] [place] [address] Care Team Providers Care Professor Of French Name Role Phone Maria Elena Martell MD Primary Care Provider Adama Mack MD Unavailable [phone] Encounter Details Date Type Department Care Team (Late st Contact Info) Description 01/07/2024 [facility]phone [facility] at [facility] [address] [place] [address] Adama Mack MD [facility] [place] [address] [place] [id number] [place] [address] Social History Tobacco Use Types Packs/Day Years Used Date Smoking Tobacco: Never Smokeless Tobacco: Never AUDIT-C Answer Date Recorded Q1: How often do you have a drink containing alcohol? 4 or more times a week 09/09/2023 Q2: How many drinks containi ng alcohol do you have on a typical day when you are drinking? 3 or 4 Q3: How often do you have si x or more drinks on one occasion? Never 09/09/2023 Personal Safety Answer Date Recorded Have you ever been in or are you currently in a harmful physical or emotional relationship or is someone making you feel afraid or unsafe? Denies 09/09/2023 Sex and Gender Information Value Date Recorded Sex Assigned at Not on file Legal Sex Male 10:12 AM MICA MINER Gender Identity Not on file Sexual Orientation Not on file documented as of this encounter Plan of Treatment Upcoming Encounters Date Type Department Care Team (Latest Contact Info) Description 05/05/2025 8:00 AM MICA MINER Hospital Encounter [facility] Cardiac Office Cashier [address] [place] [address] Alex Mack MD [address] [facility] [address] [place] [address] ESRD (end stage renal disease) on dialysis (HCC) 05/05/2025 8:00 AM MICA MINER - 05/05/2025 8:46 AM MICA MINER Surgery [facility] Cardiac Office Cashier [address] [place] [address] Alex Mack MD [address] [facility] [address] [place] [address] Dialysis Circuit Angiogram documented as of this encounter Visit Diagnoses Not on filedocumented in this encounter Care Teams Professor Of French Relationship Specialty Start [place] [address] [place] [phone] PCP - General Internal Medicine 09/09/23 Aadma Mack MD [address] [facility] [address] [place] [address] Surgeon Surgery 09/09/23 documented as of this encounter
--- OUTSIDE RECORDS SUMMARY | 2025-04-15 12:58 | XMS_ITS | Clinical Summary ---
Author Organization [facility] Address [address] [place] [address] Care Team Providers Care Energy Efficiency Finance Manager Name Role Phone Maria Elena Martell MD Primary Care Provider Adama Mack MD Unavailable [phone] Allergies No known active allergies Medications calcitRIOL (ROCALTROL) 0.25 mcg capsule Take 1 capsule (0.25 mcg total) by mouth 2 (two) times a day Active loratadine (CLARITIN) 10 mg tablet Take 1 tablet (10 mg total) by mouth daily Active sevelamer (RENVELA) 800 mg tablet Take 9 tablets (7,200 mg total) by mouth 3 (three) times a day with meals With meals and snacks Active atorvastatin (LIPITOR) 40 mg tablet Take 1 tablet (40 mg total) by mouth daily Active cloNIDine (CATAPRES) 0.2 mg tablet Take 1 tablet (0.2 mg total) by mouth 2 (two) times a day Active ergocalciferol (VITAMIN D) 50,000 unit capsule Take 1 capsule (50,000 Units total) by mouth Mondays Q 2 weeks now level was too high 1 Active sodium bicarbonate 650 mg tablet Take 1 tablet (650 mg total) by mouth 2 (two) times a day 1 Active allopurinoL (ZYLOPRIM) 300 mg tablet Take 1 tablet (300 mg total) by mouth daily [address] (PROTONIX) 40 mg EC tablet Take 1 tablet (40 mg total) by mouth daily 3 Active vitamin B complex-vitamin C-folic acid (Renal-Wendy) 0.8 mg tablet Take 1 tablet by mouth daily Taking until runs out 2 Active Cialis 5 mg tablet Take 1 tablet (5 mg total) by mouth daily as needed Hold for 4 days prior to surgery 09/04/2023 3 Active HYDROcodone-acet aminophen (NORCO) 5-325 mg per tabletIndication s:Pain Take 1-2 tablets by mouth every 4 (four) hours as needed for pain 20 tablet 4 Active Additional Information Patient not taking.Reported on 01/29/2024 Veltassa packet TAKE ONE PACKET OF POWDER MIXED IN LIQUID AND DRINK BY MOUTH IN THE MORNING 3 TIMES A WEEK ON NON DIALYSIS DAYS. 4 Active Active Problems Problem Noted Date Diagnosed Date ESRD (end stage renal disease) on dialysis 08/19 Assessment & Plan (04/12/2025 3:19 PM CDT): Prolonged bleeding with increased velocities at distal anastomosis. Will proceed with left upper extremity AV fistulogram with possible intervention. Risks of the procedure including not limited to bleeding, infection, nerve injury, graft compromise, communicated patient full understanding. He wished to proceed Assessment & Plan (11/16/2024 10:18 AM CDT): Impression: Patient denies any issues with dialysis utilizing a left brachial axillary AV graft. Duplex scan reveals elevated velocities to the proximal distal anastomosis however appear patent on images. Plan: Continue utilizing the graft for dialysis as per Nephrology. -Patient to follow-up in 3 months for re-evaluation with repeat duplex scan. Encouraged patient to make a sooner appointment if there is any complications dialysis. Assessment & Plan (08/10/2024 10:22 AM MESH CUTTER): Continue to dialyze well without any issues. Follow up in 3 months for routine surveillance with AV duplex Assessment & Plan (05/04/2024 9:05 AM MESH CUTTER): Impression: Patient has a left brachial axillary AV graft being utilized for dialysis without any issues. Audible bruit and palpable thrill noted on exam. Av duplex reveals patent stents and patent AV graft. Plan: Continue utilizing AV graft for dialysis as per Nephrology. - Patient to follow-up in 3 months for re-evaluation with repeat AV duplex scan. Encouraged patient make a sooner appointment if there is any issues with dialysis. Assessment & Plan (10/07/2023 8:28 AM CDT): Impression: Status post revision of left brachial axillary AV graft with Accu Seal. Audible bruit and palpable thrill noted on exam. No complications with dialysis. Superficial surgical dehiscence with serosanguineous drainage noted at the antecubital incision and axillary incision. Patient denies any fever, chills. Plan: Recommend daily dressing changes with triple antibiotic ointment and Band- Aid. -we will have patient follow-up in 1 week with an AV scan. for wound check. Encouraged patient to make a sooner appointment if ulceration worsens, if he develops yellow or green drainage, or a fever greater than 101 F. patient voices understanding. Assessment & Plan (09/10/2023 1:51 PM CDT): Patient underwent a revision of his left upper extremity AV graft with interposition Accu Seal yesterday 09/09/2023. Presented to dialysis today with an apparent loss of bruit and thrill was sent to the access center. Dialysis center unfortunately was trying to cannulate the wrong graft. The new Accu Seal graft is patent with a palpable thrill and audible bruit throughout the graft. The graft was marked at bedside and patient was sent back to the dialysis center to receive dialysis. Otherwise he can follow-up as scheduled for a postoperative visit in 2 weeks. Postoperative dressings are intact. Assessment & Plan (08/19/2023 4:31 PM MESH CUTTER): Impression: Patient has a left brachial axillary AV graft being utilized for dialysis without complications. Patient has a small superficial ulceration noted over AV graft that has been present for over 1 month. Av duplex reveals a patent AV graft with aneurysmal sites. Plan: Discussed patient and plan of care with Dr. Jourdan Mack. Recommend revision left upper extremity AV graft. Risks of the procedure communicate with the patient to include bleeding, infection, injury, requiring further surgery, limb loss and . Patient voices understanding of these risks and wishes to proceed. -continue utilizing AV graft for dialysis as per nephrology until scheduled procedure. Mixed hyperlipidemia 04/16/2021 Assessment & Plan (11/16/2024 10:18 AM CDT): Impression: Chronic and stable. Plan: Continue Lipitor Assessment & Plan (08/10/2024 10:21 AM MESH CUTTER): Continue Lipitor Assessment & Plan (05/04/2024 9:03 AM MESH CUTTER): Impression: Chronic stable. Plan: Continue Lipitor Assessment & Plan (08/19/2023 4:32 PM MESH CUTTER): Impression: Chronic stable. Plan: Continue Lipitor Assessment & Plan (02/04/2023 12:40 PM CDT): Impression: Chronic stable. Plan: Continue Lipitor Assessment & Plan (11/05/2022 2:28 PM CDT): Lipitor Assessment & Plan (04/16/2021 2:47 PM CDT): Continue Lipitor. Primary hypertension 04/16/2021 Assessment & Plan (11/16/2024 10:18 AM CDT): Impression: Chronic and stable. Plan: Continue clonidine, Assessment & Plan (08/10/2024 10:22 AM MESH CUTTER): Continue clonidine Assessment & Plan (05/04/2024 9:03 AM MESH CUTTER): Impression: Chronic and stable. Plan: Continue Catapres Assessment & Plan (08/19/2023 4:32 PM MESH CUTTER): Impression: Chronic and stable. Plan: Continue clonidine Assessment & Plan (02/04/2023 12:41 PM CDT): Impression: Chronic stable. Plan: Continue clonidine Assessment & Plan (11/05/2022 2:28 PM CDT): Clonidine Assessment & Plan (04/16/2021 2:47 PM CDT): Assessment/plan: Continue losartan. Resolved Problems Problem Noted Date Diagnosed Date Resolved Date End stage renal disease 04/16/2021 11/0 10/2023 Assessment & Plan (02/04/2023 12:47 PM CDT): Impression: Patient is being dialyzed through a left brachial axillary AV graft without any complications. AV scan reveals a patent AV graft. Eschar is noted to his AV graft where frequent cannulation occurs. Plan: Continue utilizing left upper extremity AV graft for dialysis as per Nephrology. - Do not recommend cannulation to the sites of eschar. Advised patient to advise camera technician to avoid these areas to prevent further skin breakdown that could potentially cause a graft infection. Patient voices understanding. -patient to follow-up in 3 months for re-evaluation with repeat AV scan. Assessment & Plan (11/05/2022 2:30 PM CDT): Seen today for a overdue routine follow-up of a left upper extremity brachial axillary graft. Good bruit and thrill on exam. Patient denies any issues with dialysis. 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 Plan: Follow-up in 3 months for routine surveillance with AV duplex Assessment & Plan (04/16/2021 2:47 PM CDT): Assessment/plan: I discussed at length the process of dialysis including access with a fistula, graph, or catheter. We will start with vein mapping in bilateral upper extremities. He will follow-up in 1-2 weeks. Encounters Date Type Department Care Team Description 04/13/2025 [facility] [address] [place] [address] Kathleen Mack MD Dependence on renal dialysis (Primary Dx); End stage renal disease; Other specified complication of vascular prosthetic devices, implants and grafts, initial encounter 04/13/2025 Telephone [facility] Dialysis Access Center at [address] [place] [id number] Kathleen Mack MD Prior Auth for Fistulogram (Prior Auth Not Required per [facility] automated system. ) 04/12/2025 7:31 AM CDT - 04/12/2025 11:59 PM CDT Hospital Encounter [facility] Dialysis Access Center at [address] [place] [id number] ESRD (end stage renal disease) on dialysis (HCC) (Primary Dx); Mixed hyperlipidemia Discharge Disposition: Discharge to home or self care 04/12/2025 7:31 AM CDT - 04/12/2025 11:59 PM CDT Hospital Encounter [facility] [address] [place] [address] [place] [id number] ESRD (end stage renal disease) on dialysis (HCC); Other specified complication of vascular prosthetic devices, implants and grafts, initial encounter Discharge Disposition: Discharge to home or self care from Last 3 Months Immunizations Immunization Administration Dates Next Due Influenza, Quadrivalent, Spl it, Intramuscular 04/24/2020,05/14/2019,04/17/2018,04/18,04/12/2016 Influenza, Trivalent, IM (MDV) 04/14/2015 Tdap 11/20/2012 Surgical History Surgery Date Site/Laterality Comments APPENDECTOMY KIDNEY SURGERY Right RIGHT KIDNEY REMOVED TUNNELED LINE PLACEMENT > 5 YEARS 05/16/2021 N/A R permacath - Dr. Goddard (removed 09/27/21 - Dr. Christopher) COLON SURGERY 06/30/2003 - 06/29/2004 bowel resection, open FEMUR FRACTURE SURGERY as a child, pin in place ARTERIOVENOUS GRAFT PLACEMENT 08/23/2021 Left LUE brachial axillary AVG creation - Dr. Christopher AV FISTULA REPAIR 09/09/2023 Left LUE AVG - revision with AccuSeal - Dr. Adama Mack AV FISTULA REPAIR 01/13/2024 Left LUE AVG - DCB subclavian vein, angioplasty & stent axillary vein - Dr. Adama Mack Medical History Medical History Date Comments Metabolic bone disease Allergic rhinitis Anemia r/t CKD, receive s Iron at dialysis Gout Teeth missing Chipped tooth Neuropathy numbness to hand s ESRD (end stage renal disease) H D on MWF at [facility] with R chest Perma Cath, sees Dr. Hayes. still makes urine Renal osteodystrophy Hypertension Family History Medical History Relation Name Comments Cancer Father Stroke Father Cancer Mother Relation Name Status Comments Father Mother Social History Tobacco Use Types Packs/Day Years [...] on file Legal Sex Male 10:12 AM MESH CUTTER Gender Identity Not on file Sexual Orientation Not on file Obstetrics History Last Filed Vital Signs Vital Sign Reading Time Taken Comments Blood Pressure 155/96 04/12/2025 8:36 AM CDT Pulse 73 04/12/2025 8:36 AM CDT Temperature 36.6 C (97.9 F) 04/12/2025 8:36 AM CDT Respiratory Rate 29 01/13/2024 1:00 PM CDT Oxygen Saturation 100% 04/12/2025 8:36 AM CDT Inhaled Oxygen Concentration - - Weight 87.3 kg (192 lb 7.4 oz) 11/16/2024 8:35 A M CDT Height 182.9 cm (6') 11/16/2024 8:35 AM CDT Body Mass Index 26.1 11/16/2024 8:35 AM CDT Plan of Treatment Upcoming Encounters Date Type Department Care Team (Latest Contact Info) Description 05/05/2025 8:00 AM MESH CUTTER Hospital Encounter [facility] [employer] [address] [place] [address] [place] [address] [place] [address] [address] [place] [address] ESRD (end stage renal disease) on dialysis (HCC) 05/05/2025 8:00 AM MESH CUTTER - 05/05/2025 8:46 AM MESH CUTTER Surgery [facility] [employer] [facility] [address] [place] [address] Kathleen Mack MD [address] [facility] [address] [place] [address] Dialysis Circuit Angiogram Health Maintenance Due Date Last Done Comments Colon Cancer Screening-Colonoscopy 1965 Depression Screening 1965 Hepatitis C Screening 1965 Prostate Cancer Screening-PSA 1965 Regular Well Visit/Exam 18-64 1982 Zoster Vaccine (1 of 2) 2014 Covid-19 Vaccine (4 - season) 2025 05/26/2021, 11/23/2020, 11/02/2020 Influenza Vaccine (#1) 2025 , 04/09/2023, 04/18/2022, Additional history exists DTaP/Tdap/Td Vaccine (3 - Td or Tdap) 01/22/2033 01/22/2023, 11/20/2012 Pneumococcal vaccine <65 Aged Out 07/23/2021, 05/01 No longer eligible based on patient's age to complete this topic Hepatitis B Screening Completed 10/17/2021 , 10/17/2021, 08/15/2021, Additional history exists Medical Devices Implanted Type Area Pelletizer Tender Device Identifier Shelf Expiration Date Model / Serial / Lot [employer] [id number] 4-7mm 45cm Stretch Peripheral Standard Soil Technician Graft Vascular - [id number] - [id number] Implanted:Qty: 1 on 08/23/2021 by Yasmani Christopher MD at [facility] Graft Left: Arm [employer] [id number] 03/11/2026 [id number] / [id number] / [employer] Gretna Acuseal 4-7mm 45cm Taper Graft Vascular Sterile [id number] - [id number] - [id number] Implanted:Qty: 1 on 09/09/2023 by Adama Mack MD at [facility] Graft Left: Arm [employer] [id number] 12/02/2025 [id number] / [id number] / Pin Pin Left: Femur [employer] [id number] Duramax Vascpak Safesheath D-Pro 15.5fr 28cm Kit Catheter - [id number] Implanted:Qty: 1 on 05/16/2021 at [facility] Angio Dynamics 07/30/2023 [id number] / / [id number] Bard Peripheral Vascular Covera 8mm 8fr 40mm 80cm Cover Helical Strut Thumbwheel [id number] - [id number] Implanted:Qty: 1 on 01/13/2024 by Adama Mack MD at [facility] Bard Peripheral Vascular 12/27/2024 [id number] / [id number] Procedures Procedure Name Priority Date/Time Associated Diagnosis Comments US HEMODIALYSIS ACCESS Schedule Routine, Read Routine (OP Routine) 04/12/2025 8:45 AM CDT ESRD (end stage renal disease) on dialysis (HCC) Other specified complication of vascular prosthetic devices, implants and grafts, initial encounter from Last 3 Months Results * US Hemodialysis Access (04/12/2025 8:45 AM CDT) Anatomical Region Laterality Modality Vascular N/A Ultrasound 04/12/2025 8:02 AM CDT Narrative 04/13/2025 3:28 PM CDT Hemodialysis Access Duplex Report Patient Name: HARRISON LANDON : 1965 (59y 10m) Sex: M Study Date: 04/12/2025 08:02:05 AM Spice Cleaner: LORI RICE Provider: KATHLEEN MACK Provider: KATHLEEN MACK PROCEDURES: Vascular Report: Color Duplex ultrasound with velocity measurements was performed of the left upper extremity access graft. A non-invasive vascular imaging study of the left upper extremity dialysis access and stent was performed using B-mode ultrasound, color flow, and spectral Doppler. INDICATIONS: Dialysis graft complication. HISTORY: S/P DCBA LT SCV;BA/STENT LT AX V 01/13/2024 S/P REV. LT AVG WITH INTERPOSITION ACUSEAL GRAFT 09/09/2023 S/P LT BRACH-AX AVG 08/23/2021. COMPARISONS: The previous exam was completed on 11/16/2024. ACCESS GRAFT: Vessel Velocity Rt Mid Graft cm/sec Lt Location LT Brach-Ax AVG Lt [place] Artery 273.00 cm/sec Lt Arterial Anast 530.00 cm/sec Lt Prx Graft 612.00 cm/sec Lt Prx-Mid Graft 297.00 cm/sec Lt Mid Graft 228.00 cm/sec Lt Dst Graft 424.00 cm/sec Lt Venous Anast 234.00 cm/sec Lt [place] Vein Ax v 209 SCV 72 cm/sec Lt Mid Graft VF 1603.00 mL/min STENT MEASUREMENTS: Left Velocity Location distal AVG and AX V Lt Stent Prx PSV 392.00 cm/sec Lt Stent Mid PSV 237.00 cm/sec Lt Stent Dst PSV 191.00 cm/sec Lt Stent Dst [place] PSV 200.00 cm/sec FINDINGS: Study Quality: The study quality is adequate. Graft: Dilatation noted at the axillary 2.7cm x 3.0cm. The arteriovenous graft is patent. Increased velocities at the proximal and distal anastamosis of the Acuseal graft. Stent: The stent is located in the distal arteriovenous graft and axillary vein. Patent upper extremity stent with no evidence of stenosis. Incidental Findings: Pseudoaneurysm mid arteriovenous graft. Pseudoaneurysm measures .5cm x .6cm. CONCLUSIONS: 1. Patent left brachial artery to axillary vein graft. Stent in the axillary vein with evidence of InStent stenosis. 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 Electronically Signed By: Kathleen Mack MD 04/13/2025 2:28:29 PM CDT Procedure Note Kathleen Mack MD - 04/13/2025 Hemodialysis Access Duplex Report Patient Name: HARRISON LANDON : 1965 (59y 10m) Sex: M Study Date: 04/12/2025 08:02:05 AM Spice Cleaner: LORI RICE Provider: KATHLEEN MACK Ref Provider: KATHLEEN MACK PROCEDURES: Vascular Report: Color Duplex ultrasound with velocity measurements wasperformed of the left upper extremity access graft. A non-invasive vascular imaging studyof the left upper extremity dialysis access and stent was performed using B-modeultrasound, color flow, and spectral Doppler. INDICATIONS: Dialysis graft complication. HISTORY: S/P DCBA LT SCV;BA/STENT LT AX V 01/13/2024 S/P REV. LT AVG WITH INTERPOSITION ACUSEAL GRAFT 09/09/2023 S/P LT BRACH-AX AVG 08/23/2021. COMPARISONS: The previous exam was completed on 11/16/2024. ACCESS GRAFT: Vessel Velocity Rt Mid Graft cm/sec Lt Location LT Brach-Ax AVG Lt [place] Artery 273.00 cm/sec Lt Arterial Anast 530.00 cm/sec Lt Prx Graft 612.00 cm/sec Lt Prx-Mid Graft 297.00 cm/sec Lt Mid Graft 228.00 cm/sec Lt Dst Graft 424.00 cm/sec Lt Venous Anast 234.00 cm/sec Lt [place] Vein Ax v 209 SCV 72 cm/sec Lt Mid Graft VF 1603.00 mL/min STENT MEASUREMENTS: Left Velocity Location distal AVG and AX V Lt Stent Prx PSV 392.00 cm/sec Lt Stent Mid PSV 237.00 cm/sec Lt Stent Dst PSV 191.00 cm/sec Lt Stent Dst [place] PSV 200.00 cm/sec FINDINGS: Study Quality: The study quality is adequate. Graft: Dilatation noted at the axillary 2.7cm x 3.0cm. The arteriovenousgraft is patent. Increased velocities at the proximal and distal anastamosis of the Acusealgraft. Stent: The stent is located in the distal arteriovenous graft and axillaryvein. Patent upper extremity stent with no evidence of stenosis. Incidental Findings: Pseudoaneurysm mid arteriovenous graft.Pseudoaneurysm measures .5cm x .6cm. CONCLUSIONS: 1. Patent left brachial artery to axillary vein graft. Stent in theaxillary vein with evidence of InStent stenosis. Pseudoaneurysms in the midportion of thegraft. Electronically Signed By: Kathleen Mack MD 04/13/2025 2:28:29 PM CDT Kathleen Mack MD [facility] PROCEDURES Final Result from Last 3 Months Insurance [id number] MEDICARE [facility] MEDICARE Address: [address] [address] [place] [address] IDPA IDPA [facility] MEDICARE AD[facility]ANTAGE [facility] MEDICARE Address: [address] [address] [place] [address] [facility] Advance Directives For more information, please contact: [phone] * Full Code (Latest Code Status on File) Date Activated Date Inactivated Comments 05/16/2021 9:43 PM 05/19/2021 11:18 PM Care Teams Energy Efficiency Finance Manager Relationship Specialty Start Date End Date Maria Elena Martell MD [address] [address] PCP - General Internal Medicine 09/09/23 Adama Mack MD [address] [facility] [address] [place] [address] Surgeon Surgery 09/09/23
--- NOTE | 2025-04-15 14:18 | ED.GENADULT ---
HPI - General Adult General Chief complaint: Epistaxis Stated complaint: nose bleed Time Seen by Provider: 04/15/25 13:54 History of Present Illness HPI narrative: 59-year-old male presents emergency department to have his nasal packing removed. Patient did have the packing placed last night at approximately 8:30 p.m. at [place]. Patient was not instructed when to have follow-up. Patient presented to the emergency department today hoping to get the packing removed. Patient states bleeding has resolved. I did communicate that if we remove the packing now it is possible that the bleeding would resolve and he would need additional packing replaced. Patient declined to have the packing removed. I did state if the patient is unable to secure follow-up after 48 hours that he would need to be started on antibiotics. Patient declined antibiotics and stated he would return to the emergency department tomorrow to have the nasal packing removed. Patient does feel that the bleeding has resolved. Patient has no external epistaxis from the right naris and no posterior bleeding into the posterior pharynx. Patient is on blood thinners and does do dialysis. Related Data Home Medications ?Medication ?Instructions ?Recorded ?Confirmed ?Last Taken ?Type allopurinol 300 mg tablet 300 mg PO DAILY 07/02/23 07/21/23 07/21/23 03:30 History atorvastatin 40 mg tablet 40 mg PO DAILY 07/02/23 07/21/23 07/21/23 03:30 History clonidine HCl 0.2 mg tablet 0.2 mg PO BID 07/02/23 07/21/23 07/20/23 21:00 History ergocalciferol (vitamin D2) 1,250 50,000 mcg PO WEEKLY 07/02/23 07/21/23 07/14/23 History mcg (50,000 unit) capsule pantoprazole 40 mg tablet,delayed 40 mg PO DAILY 07/02/23 07/21/23 07/21/23 03:30 History release sodium bicarbonate 650 mg tablet 650 mg PO BID 07/02/23 07/21/23 07/21/23 03:30 History sevelamer carbonate 800 mg tablet 2,400 mg PO TIDWM 07/09/23 07/21/23 07/21/23 03:30 History cefazolin 1 gram intravenous 1 g IV 3XW 07/21/23 07/21/23 07/18/23 09:00 History solution vitamin B complex-vitamin C-folic 1 tablet PO DAILY 07/21/23 07/21/23 07/20/23 History acid 0.8 mg tablet Allergies Allergy/AdvReac Type Severity Reaction Status Date / Time No Known Allergies Allergy Verified 04/15/25 13:58 Review of Systems Review of Systems: All systems reviewed & are unremarkable except as noted in HPI and below PMFSH Past Medical History Medical History Chronic alcohol use Chronic anemia End-stage renal disease on hemodialysis Gastroesophageal reflux disease Hyperlipidemia Hypertension Surgical History Surgical History History of arteriovenous graft Social History Social History Social History: Surrogate medical decision maker: guido Abdalla. Code status: Full code. Smoking status: Never smoker Second hand tobacco smoke exposure: No Alcohol intake: current Drinks per week: 14 Substance use: current Substance use type: marijuana Last use: 07/20/23 Do You Feel Safe in your Home?: Yes Lack of Transportation: No Lack of Food: Never True Current Housing: I Have Housing Concerned About Future Housing: No Difficulty Paying Gas/Electric Bills: No Difficulty Paying for Meds: No Currently Unemployed: No Education: Grade School Difficulty w/ Childcare or Family Care: No Spiritual care concerns: No Exam Narrative: APPEARANCE: Well appearing, no pain, no distress, well-nourished. HEAD: normocephalic, atraumatic. EYES: PERRLA/EOMI, conjunctivae clear. NOSE: Nasal packing and right naris with no active bleeding EARS:TMS clear with good light reflex. THROAT: Pharynx clear, no exudate. No active bleeding into posterior pharynx NECK: Supple. No adenopathy, no masses. RESPIRATORY: Airway patent, respirations nonlabored. Clear to auscultation bilaterally, no rales, rhonchi, wheezing. CARDIOVASCULAR: Regular rate and rhythm without murmurs rubs or gallops. ABDOMINAL: Soft, nontender, nondistended, normal bowel sounds MUSCULOSKELETAL: Moves all extremities. Strength/ROM intact, No edema, No calf tenderness. NEURO: Alert. Cranial nerves II through XII intact. Grossly intact SKIN: Warm, dry. Normal Color Course Vital Signs Vital signs: Vital Signs Temperature 97.2 F L 04/15/25 12:47 Pulse Rate 87 04/15/25 12:47 Respiratory Rate 16 04/15/25 12:47 Blood Pressure 150/77 H 04/15/25 12:47 Pulse Oximetry 100 04/15/25 12:47 Temperature 97.2 F L 04/15/25 12:47 Pulse Rate 87 04/15/25 12:47 Respiratory Rate 16 04/15/25 12:47 Blood Pressure 150/77 H 04/15/25 12:47 Pulse Oximetry 100 04/15/25 12:47 Medical Decision Making MDM Narrative Medical decision making narrative: 59-year-old male presenting emergency department for evaluation for removal of his nasal packing. Patient did change his mind and does not want the packing removed. Patient will return to the emergency department tomorrow at of the packing removed. Patient also declined any antibiotics if he is unable to get the packing removed. Patient was well-appearing at time of discharge. Differential Diagnosis Differential Diagnosis: Epistaxis Vital Signs Vital Signs: Vital Signs Temperature 97.2 F L 04/15/25 12:47 Pulse Rate 87 04/15/25 12:47 Respiratory Rate 16 04/15/25 12:47 Blood Pressure 150/77 H 04/15/25 12:47 Pulse Oximetry 100 04/15/25 12:47 Temperature 97.2 F L 04/15/25 12:47 Pulse Rate 87 04/15/25 12:47 Respiratory Rate 16 04/15/25 12:47 Blood Pressure 150/77 H 04/15/25 12:47 Pulse Oximetry 100 04/15/25 12:47 Discharge Plan Discharge Clinical Impression: Epistaxis Patient Disposition: Home Condition: Stable Instructions: Antibiotic Form, Nosebleed (ED) Additional Instructions: Your nasal packing will need to be removed within 2 days initial placement. Patient Language: Luxembourger Prescriptions: No Action atorvastatin 40 mg tablet 40 mg PO DAILY clonidine HCl 0.2 mg tablet 0.2 mg PO BID sodium bicarbonate 650 mg tablet 650 mg PO BID pantoprazole 40 mg tablet,delayed release (DR/EC) 40 mg PO DAILY allopurinol 300 mg tablet 300 mg PO DAILY ergocalciferol (vitamin D2) 1,250 mcg (50,000 unit) capsule 50,000 mcg PO WEEKLY Patient Comments: Takes on Mondays sevelamer carbonate 800 mg tablet 2,400 mg PO TIDWM cefazolin 1 gram recon soln 1 g IV 3XW Rx Instructions: Friday 2gm, friday 2 gm, friday 3 gm with dialysis stop date: 08/08/2023 B complex-vitamin C-folic acid 0.8 mg Tablet 1 tablet PO DAILY thiamine HCl (vitamin B1) [Vitamin B-1] 100 mg Tablet 100 mg PO QAM 30 Days Qty: 30 0RF folic acid 1 mg Tablet 1 mg PO DAILY 30 Days Qty: 30 0RF Follow-up/Referrals: Jasbir,Cheo Arredondo [Primary Care Provider]
--- OUTSIDE RECORDS SUMMARY | 2025-04-15 14:27 | XMS_ITS | Encounter Summary ---
Author Organization [facility] Healthcare Address [address] [place] [address] Care Team Providers Care Senior Medical Director Name Role Phone Cuong Hayes MD Primary Care Provider [phone] Maria Elena Martell MD Primary Care Provider Adama Mack MD Unavailable [phone] Encounter Details Date Type Department Care Team (Late st Contact Info) Description 08/27/2023 Telephone [facility] at [facility] [address] [facility] [place] [address] Adama Mack MD [address] [facility] [address] [facility] [address] [place] [address] Social History Tobacco Use Types Packs/Day Years [...] on file Legal Sex Male 10:12 AM SLOT SHIFT MANAGER Gender Identity Not on file Sexual Orientation Not on file documented as of this encounter Functional Status * AUDIT-C Score Answer Date of Assessment Author 3 08/28/2023 12:59 PM SLOT SHIFT MANAGER Brett Jackson, RN * Question Answer Date of Assessment Author Q1: How often do you have a drink containing alcohol? 2-3 times a week 08/28/2023 12:59 PM SLOT SHIFT MANAGER Brett Jackson, RN Q2: How many drinks containing alcohol do you have on a typical day when you are drinking? 1 or 2 08/28/2023 12:59 PM SLOT SHIFT MANAGER Brett Jackson, RN Q3: How often do you have six or more drinks on one occasion? Never 08/28/2023 12:59 PM SLOT SHIFT MANAGER Brett aJckson, ДМИТРИЙ documented as of this encounter Plan of Treatment Upcoming Encounters Date Type Department Care Team (Latest Contact Info) Description 05/05/2025 8:00 AM SLOT SHIFT MANAGER Hospital Encounter [facility] Cardiac Sword Swallower [address] [place] [address] Alex Mack MD [facility] [address] [place] [address] ESRD (end stage renal disease) on dialysis (HCC) 05/05/2025 8:00 AM SLOT SHIFT MANAGER - 05/05/2025 8:46 AM [facility] Surgery [facility] Cardiac Sword Swallower [address] [place] [address] Alex Mack MD [address] [facility] [address] [place] [address] Dialysis Circuit Angiogram documented as of this encounter Visit Diagnoses Not on filedocumented in this encounter Care Teams Senior Medical Director Relationship Specialty Start Date End Date Cuong Hayes MD PCP - General Nephrology 05/09/21 09/08/23 [place] [address] [place] [address] PCP - General Internal Medicine 09/09/23 Adama Mack MD [address] [facility] [address] [place] [place] [address] Surgeon Surgery 09/09/23 documented as of this encounter
--- OUTSIDE RECORDS SUMMARY | 2025-04-15 14:27 | XMS_ITS | Encounter Summary ---
Author Organization [facility] Healthcare Address [address] [place] [address] Care Team Providers Care Screwhead Stoner And Polisher Name Role Phone Maria Elena Martell MD Primary Care Provider Adama Mack MD Unavailable [phone] Reason for Visit * Reason Onset Date Comments Prior Auth for Fistulogram 04/13/2025 Prior Auth Not Required per [facility] automated system. Encounter Details Date Type Department Care Team (Late st Contact Info) Description 04/13/2025 [facility]phone [facility] at [facility] [address] [facility] [address] [place] [address] Alex Mack MD [address] [place] [address] [address] [place] [address] Prior Auth for Fistulogram (Prior Auth Not Required per [facility] automated system. ) Social History Tobacco Use [...] on file Legal Sex Male 10:[address] ENGINEER Gender Identity Not on file Sexual Orientation [...] RN - 04/13/2025 1:43 PM CDT Contacted [facility] to obtain prior authorization for upcoming fistulogram scheduled on 04/19/25. Per automated system, CPT code 18817 with ICD-10 code does NOT require prior authorization. Last 4 digits of reference number [phone]. documented in this encounter Plan of Treatment Upcoming Encounters Date Type Department Care Team (Latest Contact Info) Description 05/05/2025 8:[address]IGN ENGINEER Hospital Encounter [facility] Cardiac Cattle Dealer [address] [place] [address] Alex Mack MD [address] [facility] [address] [address] ESRD (end stage renal disease) on dialysis (HCC) 05/05/2025 8:[address] ENGINEER - 05/05/2025 8:[address] DESIGN ENGINEER Surgery [facility] Cardiac Cattle Dealer [address] [place] [address] Alex Mack MD [address] [facility] [address] [place] [address] Dialysis Circuit Angiogram documented as of this encounter Visit Diagnoses Not on filedocumented in this encounter Care Teams Screwhead Stoner And Polisher Relationship Specialty Start [place] [address] [place] [address] PCP - General Internal Medicine 09/09/23 Adama Mack MD [address] [facility] [address] [place] [address] Surgeon Surgery 09/09/23 documented as of this encounter
--- OUTSIDE RECORDS SUMMARY | 2025-04-15 14:27 | XMS_ITS | Encounter Summary ---
Author Organization [facility] Healthcare Address [address] [facility] [place] [address] Care Team Providers Care Fireworks Assembly Supervisor Name Role Phone Maria Elena Martell MD Primary Care Provider Adama Mack MD Unavailable [phone] Encounter Details Date Type Department Care Team (Late st Contact Info) Description 01/07/2024 [facility]phone [facility] at [facility] [address] [facility] [address] [place] [address] Adama Mack MD [facility] [place] [address] [place] [address] [place] [address] Social History Tobacco Use Types Packs/Day Years [...] on file Legal Sex Male 10:12 AM SAFETY PIN ASSEMBLING MACHINE OPERATOR Gender Identity Not on file Sexual Orientation Not on file documented as of this encounter Plan of Treatment Upcoming Encounters Date Type Department Care Team (Latest Contact Info) Description 05/05/2025 8:00 AM SAFETY PIN ASSEMBLING MACHINE OPERATOR Hospital Encounter [facility] Cardiac Linotype Operator [address] [place] [address] Alex Mack MD [address] [facility] [address] [place] [address] ESRD (end stage renal disease) on dialysis (HCC) 05/05/2025 8:00 AM SAFETY PIN ASSEMBLING MACHINE OPERATOR - 05/05/2025 8:46 AM SAFETY PIN ASSEMBLING MACHINE OPERATOR Surgery [facility] Cardiac Linotype Operator [address] [place] [address] Alex Mack MD [address] [facility] [address] [place] [address] Dialysis Circuit Angiogram documented as of this encounter Visit Diagnoses Not on filedocumented in this encounter Care Teams Fireworks Assembly Supervisor Relationship Specialty Start [place] [address] [place] [address] PCP - General Internal Medicine 09/09/23 Adama Mack MD [address] [facility] [address] [place] [place] [address] Surgeon Surgery 09/09/23 documented as of this encounter
--- OUTSIDE RECORDS SUMMARY | 2025-04-15 14:27 | XMS_ITS | Clinical Summary ---
Author Organization [facility] Address [address] [place] [address] Care Team Providers Care Bleacher Lard Name Role Phone Maria Elena Martell MD Primary Care Provider Adama Mack MD Unavailable [phone] Allergies No known active allergies Medications calcitRIOL [...] dialysis. Assessment & Plan (08/10/2024 10:22 AM EXCEL SPECIALIST): Continue to dialyze well without any issues. Follow up in 3 months for routine surveillance with AV duplex Assessment & Plan (05/04/2024 9:05 AM EXCEL SPECIALIST): Impression: Patient has a left brachial axillary [...] intact. Assessment & Plan (08/19/2023 4:31 PM EXCEL SPECIALIST): Impression: Patient has a left brachial axillary [...] Lipitor Assessment & Plan (08/10/2024 10:21 AM EXCEL SPECIALIST): Continue Lipitor Assessment & Plan (05/04/2024 9:03 AM EXCEL SPECIALIST): Impression: Chronic stable. Plan: Continue Lipitor Assessment & Plan (08/19/2023 4:32 PM EXCEL SPECIALIST): Impression: Chronic stable. Plan: Continue Lipitor Assessment & Plan (02/04/2023 12:40 PM CDT): Impression: Chronic stable. Plan: Continue Lipitor Assessment & Plan (11/05/2022 2:28 PM CDT): Lipitor Assessment & Plan (04/16/2021 2:47 PM CDT): Continue Lipitor. Primary hypertension 04/16/2021 Assessment & Plan (11/16/2024 10:18 AM CDT): Impression: Chronic and stable. Plan: Continue clonidine, Assessment & Plan (08/10/2024 10:22 AM EXCEL SPECIALIST): Continue clonidine Assessment & Plan (05/04/2024 9:03 AM EXCEL SPECIALIST): Impression: Chronic and stable. Plan: Continue Catapres Assessment & Plan (08/19/2023 4:32 PM EXCEL SPECIALIST): Impression: Chronic and stable. Plan: Continue clonidine [...] sites of eschar. Advised patient to advise ammonia refrigeration technician to avoid these areas to prevent [...] Department Care Team Description 04/13/2025 [facility] at [address] [place] [address] Kathleen Mack MD Dependence on renal dialysis (Primary Dx); End stage renal disease; Other specified complication of vascular prosthetic devices, implants and grafts, initial encounter 04/13/2025 Telephone [facility] Dialysis Access Center at [address] [place] [address] Kathleen Mack MD Prior Auth for Fistulogram (Prior Auth Not Required per [facility] automated system. ) 04/12/2025 7:31 AM CDT - 04/12/2025 11:59 PM CDT Hospital Encounter [facility] Dialysis Access Center at [address] [place] [address] ESRD (end stage renal disease) on dialysis (HCC) (Primary Dx); Mixed hyperlipidemia Discharge Disposition: Discharge to home or self care 04/12/2025 7:31 AM CDT - 04/12/2025 11:59 PM CDT Hospital Encounter [facility] Office Building [address] [place] [address] [place] [address] ESRD (end stage renal disease) on dialysis [...] & stent axillary vein - Dr. Adama aMck Medical History Medical History Date Comments Metabolic bone disease Allergic rhinitis Anemia r/t CKD, receive s Iron at dialysis Gout Teeth missing Chipped tooth Neuropathy numbness to hand s ESRD (end stage renal disease) H D on MWF at [facility] with R chest Perma Cath, sees [...] on file Legal Sex Male 10:12 AM EXCEL SPECIALIST Gender Identity Not on file Sexual Orientation [...] (Latest Contact Info) Description 05/05/2025 8:00 AM EXCEL SPECIALIST Hospital Encounter [facility] Cardiac Ict Help Desk Technician [address] [place] [address] [place] [address] [place] [address] [address] [place] [address] ESRD (end stage renal disease) on dialysis (HCC) 05/05/2025 8:00 AM EXCEL SPECIALIST - 05/05/2025 8:46 AM EXCEL SPECIALIST Surgery [facility] Cardiac Ict Help Desk Technician [address] [place] [address] Kathleen Mack MD [address] [facility] [address] [place] [address] Dialysis Circuit Angiogram Health Maintenance Due Date [...] history exists Medical Devices Implanted Type Area Senior Insight Manager Device Identifier Shelf Expiration Date Model / Serial / Lot [employer] [id number] 4-7mm 45cm Stretch Peripheral Standard Training Lead Graft Vascular - [id number] - [id number] Implanted:Qty: 1 on 08/23/2021 by Yasmani Christopher MD at [facility] Graft Left: Arm [employer] [id number] 03/11/2026 [id number] / [id number] / [employer] Oaks Acuseal 4-7mm 45cm Taper Graft Vascular Sterile [id number] - [id number] - [id number] Implanted:Qty: 1 on 09/09/2023 by Adama Mack MD at [facility] Graft Left: Arm [employer] [id number] 12/02/2025 [id number] / [id number] / Pin Pin Left: Femur Angio Dynamics [id number] Duramax Vascpak Safesheath D-Pro 15.5fr 28cm Kit Catheter - [id number] Implanted:Qty: 1 on 05/16/2021 at [facility] Angio Dynamics 07/30/2023 [id number] / / [id number] Bard Peripheral Vascular Covera 8mm 8fr 40mm 80cm Cover Helical Strut Thumbwheel [id number] - [id number] Implanted:Qty: 1 on 01/13/2024 by Adama Mack MD at [facility] Bard Peripheral Vascular 12/27/2024 [id number] / / [id number] Procedures Procedure Name Priority Date/Time Associated Diagnosis [...] Sex: M Study Date: 04/12/2025 08:02:05 AM Timber Spotter: LORI RICE Provider: KATHLEEN MACK Provider: KATHLEEN [...] cm/sec Lt Location LT Brach-Ax AVG Lt [place] Artery 273.00 cm/sec Lt Arterial Anast 530.00 cm/sec Lt Prx Graft 612.00 cm/sec Lt Prx-Mid Graft 297.00 cm/sec Lt Mid Graft 228.00 cm/sec Lt Dst Graft 424.00 cm/sec Lt Venous Anast 234.00 cm/sec Lt [place] Vein Ax v 209 SCV 72 cm/sec Lt Mid Graft VF 1603.00 mL/min STENT MEASUREMENTS: Left Velocity Location distal AVG and AX V Lt Stent Prx PSV 392.00 cm/sec Lt Stent Mid PSV 237.00 cm/sec Lt Stent Dst PSV 191.00 cm/sec Lt Stent Dst [place] PSV 200.00 cm/sec FINDINGS: Study Quality: The [...] Sex: M Study Date: 04/12/2025 08:02:05 AM Timber Spotter: LORI RICE Provider: KATHLEEN MACK Ref Provider: [...] cm/sec Lt Location LT Brach-Ax AVG Lt [place] Artery 273.00 cm/sec Lt Arterial Anast 530.00 cm/sec Lt Prx Graft 612.00 cm/sec Lt Prx-Mid Graft 297.00 cm/sec Lt Mid Graft 228.00 cm/sec Lt Dst Graft 424.00 cm/sec Lt Venous Anast 234.00 cm/sec Lt [place] Vein Ax v 209 SCV 72 cm/sec Lt Mid Graft VF 1603.00 mL/min STENT MEASUREMENTS: Left Velocity Location distal AVG and AX V Lt Stent Prx PSV 392.00 cm/sec Lt Stent Mid PSV 237.00 cm/sec Lt Stent Dst PSV 191.00 cm/sec Lt Stent Dst [place] PSV 200.00 cm/sec FINDINGS: Study Quality: The [...] 04/13/2025 2:28:29 PM CDT Kathleen Mack MD [facility] PROCEDURES Final Result from Last 3 Months Insurance [id number] MEDICARE ADVANTAGE IDPA IDPA [facility] MEDICARE ADVANTAGE [facility] Advance Directives For more information, please contact: [phone] * Full Code (Latest Code Status on File) Date Activated Date Inactivated Comments 05/16/2021 9:43 PM 05/19/2021 11:18 PM Care Teams Bleacher Lard Relationship Specialty Start Date End Date Maria Elena Martell MD [address] [address] PCP - General Internal Medicine 09/09/23 Adama Mack MD [address] [facility] [address] [place] [address] [place] [address] Surgeon Surgery 09/09/23
--- OUTSIDE RECORDS SUMMARY | 2025-04-15 14:27 | XMS_ITS | Clinical Summary ---
Author Organization [facility] Address [address] [facility] [place] [address] Care Team Providers Care Hyperbaric Tech Name Role Phone Unavailable Primary Care Provider Unavailabl e Source Comments [facility],non-owned Affiliates and Associated Physician Practices is amultiple site organization consisting of ambulatory clinics and hospital sitesin [place], [place], [place] and [place]. This disclosure is being madepursuant to the Care Everywhere program and may not contain all information available regarding this patient. Last updated 18.[facility] Allergies No known active allergies Medications * Be aware that medications may not be up to date on this document. Alwaysverify current medications with the patient. allopurinol (Zyloprim) 300 MG tablet 3 Active atorvastatin (Lipitor) 40 MG tablet Take 1 (one) tablet by mouth once daily 3 Active B Pukdlmu-C-Hyblw Acid (Misti-Wendy) Take 1 (one) tablet by mouth once daily 2 Active calcitriol (Rocaltrol) 0.25 MCG capsule Take 1 (one) capsule by mouth 2 times daily Active cloNIDine (Catapres) 0.2 MG tablet Take 1 (one) tablet by mouth 2 times daily Active ergocalciferol (Drisdol) 1.25 MG (33329 UT) capsule Take 1 (one) capsule by [...] on file Legal Sex Male 2:59 PM OCEAN FREIGHT AGENT Gender Identity Not on file Sexual Orientation [...] topic Insurance [id number] MANAGED MEDICARE ADV [facility]LY [facility]
== END 2025-04-15 14:51 | disposition home or self-care (01) ==
LOC: ANHED 14:25
PROVIDERS: Emergency Provider Emergency Medicine; PCP Internal Medicine Infectious Disease
DX: R04.0 Epistaxis (principal); I12.0 Hypertensive chronic kidney disease with stage 5 chronic kidney disease or end stage renal disease; N18.6 End stage renal disease; Z99.2 Dependence on renal dialysis; E78.5 Hyperlipidemia, unspecified; K21.9 Gastro-esophageal reflux disease without esophagitis; D64.9 Anemia, unspecified
CPT/HCPCS: 99281

== ENCOUNTER 2025-04-16 09:41 | Emergency (ER) | payer MEDICARE, MEDICAID, SELFPAY ==
--- NOTE | 2025-04-16 09:42 | ED.GENADULT ---
HPI - General Adult General Chief complaint: Recheck/Abnormal Lab/Rx Stated complaint: requesting rhino rocket removal Time Seen by Provider: 04/16/25 09:42 History of Present Illness HPI narrative: 59-year-old male presents to the emergency department for evaluation for removal for right naris nasal packing. Patient had this rhino rocket placed evening at 8:00 p.m.. Patient was evaluated emergency department yesterday and declined to have it removed at that time. Patient return to the emergency department today for removal. Patient had no active bleeding from the naris and no posterior bleeding. Related Data Home Medications ?Medication ?Instructions ?Recorded ?Confirmed ?Last Taken ?Type allopurinol 300 mg tablet 300 mg PO DAILY 07/02/23 07/21/23 07/21/23 03:30 History atorvastatin 40 mg tablet 40 mg PO DAILY 07/02/23 07/21/23 07/21/23 03:30 History clonidine HCl 0.2 mg tablet 0.2 mg PO BID 07/02/23 07/21/23 07/20/23 21:00 History ergocalciferol (vitamin D2) 1,250 50,000 mcg PO WEEKLY 07/02/23 07/21/23 07/14/23 History mcg (50,000 unit) capsule pantoprazole 40 mg tablet,delayed 40 mg PO DAILY 07/02/23 07/21/23 07/21/23 03:30 History release sodium bicarbonate 650 mg tablet 650 mg PO BID 07/02/23 07/21/23 07/21/23 03:30 History sevelamer carbonate 800 mg tablet 2,400 mg PO TIDWM 07/09/23 07/21/23 07/21/23 03:30 History cefazolin 1 gram intravenous 1 g IV 3XW 07/21/23 07/21/23 07/18/23 09:00 History solution vitamin B complex-vitamin C-folic 1 tablet PO DAILY 07/21/23 07/21/23 07/20/23 History acid 0.8 mg tablet Allergies Allergy/AdvReac Type Severity Reaction Status Date / Time No Known Allergies Allergy Verified 04/16/25 09:49 Review of Systems Review of Systems: All systems reviewed & are unremarkable except as noted in HPI and below PMFSH Past Medical History Medical History Chronic alcohol use Chronic anemia End-stage renal disease on hemodialysis Gastroesophageal reflux disease Hyperlipidemia Hypertension Surgical History Surgical History History of arteriovenous graft Social History Social History Social History: Surrogate medical decision maker: Noemy Darrick, niece. Code status: Full code. Smoking status: Never smoker Second hand tobacco smoke exposure: No Alcohol intake: current Drinks per week: 14 Substance use: current Substance use type: marijuana Last use: 07/20/23 Do You Feel Safe in your Home?: Yes Lack of Transportation: No Lack of Food: Never True Current Housing: I Have Housing Concerned About Future Housing: No Difficulty Paying Gas/Electric Bills: No Difficulty Paying for Meds: No Currently Unemployed: No Education: Grade School Difficulty w/ Childcare or Family Care: No Spiritual care concerns: No Exam Narrative: APPEARANCE: Well appearing, no pain, no distress, well-nourished. HEAD: normocephalic, atraumatic. EYES: PERRLA/EOMI, conjunctivae clear. NOSE: Nares was clear after removal of the nasal packing the right EARS:TMS clear with good light reflex. THROAT: Pharynx clear, no exudate. NECK: Supple. No adenopathy, no masses. RESPIRATORY: Airway patent, respirations nonlabored. Clear to auscultation bilaterally, no rales, rhonchi, wheezing. CARDIOVASCULAR: Regular rate and rhythm without murmurs rubs or gallops. ABDOMINAL: Soft, nontender, nondistended, normal bowel sounds MUSCULOSKELETAL: Moves all extremities. Strength/ROM intact, No edema, No calf tenderness. NEURO: Alert. Cranial nerves II through XII intact. Good gait. Good coordination SKIN: Warm, dry. Normal Color Course Vital Signs Vital signs: Vital Signs Temperature 97.9 F 04/16/25 09:45 Pulse Rate 68 04/16/25 09:45 Respiratory Rate 16 04/16/25 09:45 Blood Pressure 158/92 H 04/16/25 09:45 Pulse Oximetry 100 04/16/25 09:45 Oxygen Delivery Room Air 04/16/25 09:45 Temperature 97.9 F 04/16/25 09:45 Pulse Rate 68 04/16/25 09:45 Respiratory Rate 16 04/16/25 09:45 Blood Pressure 158/92 H 04/16/25 09:45 Pulse Oximetry 100 04/16/25 09:45 Oxygen Delivery Room Air 04/16/25 09:45 Medical Decision Making MDM Narrative Medical decision making narrative: Nasal packing was removed without difficulty and patient was observed in emergency department and patient had no rebleeding. Vital Signs Vital Signs: Vital Signs Temperature 97.9 F 04/16/25 09:45 Pulse Rate 68 04/16/25 09:45 Respiratory Rate 16 04/16/25 09:45 Blood Pressure 158/92 H 04/16/25 09:45 Pulse Oximetry 100 04/16/25 09:45 Oxygen Delivery Room Air 04/16/25 09:45 Temperature 97.9 F 04/16/25 09:45 Pulse Rate 68 04/16/25 09:45 Respiratory Rate 16 04/16/25 09:45 Blood Pressure 158/92 H 04/16/25 09:45 Pulse Oximetry 100 04/16/25 09:45 Oxygen Delivery Room Air 04/16/25 09:45 Discharge Plan Discharge Clinical Impression: Encounter for removal of nasal packing Patient Disposition: Home Condition: Stable Instructions: Antibiotic Form, Nosebleed (ED) Additional Instructions: Continue to have close follow-up with ENT. Have close follow-up with your primary care physician. If you have any worsening symptoms then please call or return to the emergency department. Patient Language: Citizen Of [place] Prescriptions: No Action atorvastatin 40 mg tablet 40 mg PO DAILY clonidine HCl 0.2 mg tablet 0.2 mg PO BID sodium bicarbonate 650 mg tablet 650 mg PO BID pantoprazole 40 mg tablet,delayed release (DR/EC) 40 mg PO DAILY allopurinol 300 mg tablet 300 mg PO DAILY ergocalciferol (vitamin D2) 1,250 mcg (50,000 unit) capsule 50,000 mcg PO WEEKLY Patient Comments: Takes on Mondays sevelamer carbonate 800 mg tablet 2,400 mg PO TIDWM cefazolin 1 gram recon soln 1 g IV 3XW Rx Instructions: Friday 2gm, friday 2 gm, friday 3 gm with dialysis stop date: 08/08/2023 B complex-vitamin C-folic acid 0.8 mg Tablet 1 tablet PO DAILY thiamine HCl (vitamin B1) [Vitamin B-1] 100 mg Tablet 100 mg PO QAM 30 Days Qty: 30 0RF folic acid 1 mg Tablet 1 mg PO DAILY 30 Days Qty: 30 0RF Follow-up/Referrals: Jasbir,Naresh Arredondo. [Primary Care Provider]
--- OUTSIDE RECORDS SUMMARY | 2025-04-16 09:44 | XMS_ITS | Encounter Summary ---
Author Organization [facility] Healthcare Address [address] [place] [address] Care Team Providers Care Sales Support Assistant Name Role Phone Maria Elena Martell MD Primary Care Provider Adama Mack MD Unavailable [phone] Encounter Details Date Type Department Care Team (Late st Contact Info) Description 01/07/2024 Telephone [facility] at [facility] [address] [place] [address] Adama Mack MD [id number] [place] [address] Social History Tobacco Use Types Packs/Day Years [...] on file Legal Sex Male 10:12 AM KILNMAN Gender Identity Not on file Sexual Orientation Not on file documented as of this encounter Plan of Treatment Upcoming Encounters Date Type Department Care Team (Latest Contact Info) Description 05/05/2025 8:00 AM KILNMAN Hospital Encounter [facility] Cardiac Yarder Puncher [address] [place] [address] Alex Mack MD [address] [facility] [address] [place] [address] ESRD (end stage renal disease) on dialysis (HCC) 05/05/2025 8:00 AM KILNMAN - 05/05/2025 8:46 AM KILNMAN Surgery [facility] Cardiac Yarder Puncher [address] [place] [address] Alex Mack MD [address] [facility] [facility] [address] [facility] [place] [address] Dialysis Circuit Angiogram documented as of this encounter Visit Diagnoses Not on filedocumented in this encounter Care Teams Sales Support Assistant Relationship Specialty Start [place] [address] [place] [address] PCP - General Internal Medicine 09/09/23 Adama Mack MD [address] [facility] [address] [facility] [address] [place] [address] Surgeon Surgery 09/09/23 documented as of this encounter
--- OUTSIDE RECORDS SUMMARY | 2025-04-16 09:44 | XMS_ITS | Clinical Summary ---
Author Organization [facility] Address [address] [facility] [place] [address] Care Team Providers Care Fast Food Services Manager Name Role Phone Unavailable Primary Care Provider Unavailabl e Source Comments [facility],non-owned Affiliates and Associated Physician Practices is amultiple site organization consisting of ambulatory clinics and hospital sitesin [place], [place], [place] and [place]. This disclosure is being madepursuant to the Care Everywhere program and may not contain all information available regarding this patient. Last updated 18.[facility] Allergies No known active allergies Medications * Be aware that medications may not be up to date on this document. Alwaysverify current medications with the patient. allopurinol (Zyloprim) 300 MG tablet 3 Active atorvastatin (Lipitor) 40 MG tablet Take 1 (one) tablet by mouth once daily 3 Active B Uunyhla-F-Pbise Acid (Misti-Wendy) Take 1 (one) tablet by mouth once daily 2 Active calcitriol (Rocaltrol) 0.25 MCG capsule Take 1 (one) capsule by mouth 2 times daily Active cloNIDine (Catapres) 0.2 MG tablet Take 1 (one) tablet by mouth 2 times daily Active ergocalciferol (Drisdol) 1.25 MG (01344 UT) capsule Take 1 (one) capsule by [...] on file Legal Sex Male 2:59 PM SCHOOL PRINCIPAL Gender Identity Not on file Sexual Orientation [...] topic Insurance 2000 [id number] MANAGED MEDICARE ADV [facility]MERLY [facility]
--- OUTSIDE RECORDS SUMMARY | 2025-04-16 09:44 | XMS_ITS | Clinical Summary ---
Author Organization [facility] Address [address] [place] [address] Care Team Providers Care Clinical Director Name Role Phone Maria Elena Martell MD Primary Care Provider Adama Mack MD Unavailable [phone] Allergies No known active allergies Medications calcitRIOL [...] dialysis. Assessment & Plan (08/10/2024 10:22 AM SECURITIES UNDERWRITER): Continue to dialyze well without any issues. Follow up in 3 months for routine surveillance with AV duplex Assessment & Plan (05/04/2024 9:05 AM SECURITIES UNDERWRITER): Impression: Patient has a left brachial axillary [...] intact. Assessment & Plan (08/19/2023 4:31 PM SECURITIES UNDERWRITER): Impression: Patient has a left brachial axillary [...] Lipitor Assessment & Plan (08/10/2024 10:21 AM SECURITIES UNDERWRITER): Continue Lipitor Assessment & Plan (05/04/2024 9:03 AM SECURITIES UNDERWRITER): Impression: Chronic stable. Plan: Continue Lipitor Assessment & Plan (08/19/2023 4:32 PM SECURITIES UNDERWRITER): Impression: Chronic stable. Plan: Continue Lipitor Assessment & Plan (02/04/2023 12:40 PM CDT): Impression: Chronic stable. Plan: Continue Lipitor Assessment & Plan (11/05/2022 2:28 PM CDT): Lipitor Assessment & Plan (04/16/2021 2:47 PM CDT): Continue Lipitor. Primary hypertension 04/16/2021 Assessment & Plan (11/16/2024 10:18 AM CDT): Impression: Chronic and stable. Plan: Continue clonidine, Assessment & Plan (08/10/2024 10:22 AM SECURITIES UNDERWRITER): Continue clonidine Assessment & Plan (05/04/2024 9:03 AM SECURITIES UNDERWRITER): Impression: Chronic and stable. Plan: Continue Catapres Assessment & Plan (08/19/2023 4:32 PM SECURITIES UNDERWRITER): Impression: Chronic and stable. Plan: Continue clonidine [...] sites of eschar. Advised patient to advise trailer technician to avoid these areas to prevent [...] Department Care Team Description 04/13/2025 [facility] [address] [place] [address] Kathleen Mack MD Dependence on renal dialysis (Primary Dx); End stage renal disease; Other specified complication of vascular prosthetic devices, implants and grafts, initial encounter 04/13/2025 Telephone [facility] Dialysis Access Center at [address] [place] [address] Kathleen Mack MD Prior Auth for Fistulogram (Prior Auth Not Required per [facility] automated system. ) 04/12/2025 7:31 AM CDT - 04/12/2025 11:59 PM CDT Hospital Encounter [facility] Dialysis Access Center at [address] [place] [address] ESRD (end stage renal disease) on dialysis (HCC) (Primary Dx); Mixed hyperlipidemia Discharge Disposition: Discharge to home or self care 04/12/2025 7:31 AM CDT - 04/12/2025 11:59 PM CDT Hospital Encounter [facility] [address] [place] [address] [place] [address] ESRD (end stage renal disease) on dialysis [...] on file Legal Sex Male 10:12 AM SECURITIES UNDERWRITER Gender Identity Not on file Sexual Orientation [...] (Latest Contact Info) Description 05/05/2025 8:00 AM SECURITIES UNDERWRITER Hospital Encounter [facility] Cardiac Office Sweeper [address] [place] [address] [place] [address] [place] [address] [address] [place] [address] ESRD (end stage renal disease) on dialysis (HCC) 05/05/2025 8:00 AM SECURITIES UNDERWRITER - 05/05/2025 8:46 AM SECURITIES UNDERWRITER Surgery [facility] Cardiac Office Sweeper [address] [place] [address] Kathleen Mack MD [address] [place] [address] Dialysis Circuit Angiogram Health Maintenance Due Date [...] history exists Medical Devices Implanted Type Area Mining Machinery Assembler Device Identifier Shelf Expiration Date Model / Serial / Lot Wl [employer] [id number] 4-7mm 45cm Stretch Peripheral Standard Human Resources Operations Manager Graft Vascular - [id number] - [id number] Implanted:Qty: 1 on 08/23/2021 by Yasmani Christopher MD at [facility] Graft Left: Arm Wl [employer] [id number] 03/11/2026 [id number] / [id number] / [employer] Piermont Acuseal 4-7mm 45cm Taper Graft Vascular Sterile [id number] - [id number] - [id number] Implanted:Qty: 1 on 09/09/2023 by Adama Mack MD at [facility] Graft Left: Arm Wl [employer] [id number] 12/02/2025 [id number] / [id number] / Pin Pin Left: Femur Angio Dynamics [id number] Duramax Vascpak Safesheath D-Pro 15.5fr 28cm Kit Catheter - [id number] Implanted:Qty: 1 on 05/16/2021 at [facility] Angio Dynamics 07/30/2023 [id number] / / [id number] Bard Peripheral Vascular Covera 8mm 8fr 40mm 80cm Cover Helical Strut Thumbwheel [id number] - [id number] Implanted:Qty: 1 on 01/13/2024 by Adama Mack MD at [facility] Bard Peripheral Vascular 12/27/2024 [id number] / / [id number] Procedures Procedure Name Priority Date/Time Associated Diagnosis [...] Sex: M Study Date: 04/12/2025 08:02:05 AM Application Design Engineer: LORI RICE Provider: KATHLEEN MACK Provider: KATHLEEN [...] cm/sec Lt Location LT Brach-Ax AVG Lt Ramona Artery 273.00 cm/sec Lt Arterial Anast 530.00 cm/sec Lt Prx Graft 612.00 cm/sec Lt Prx-Mid Graft 297.00 cm/sec Lt Mid Graft 228.00 cm/sec Lt Dst Graft 424.00 cm/sec Lt Venous Anast 234.00 cm/sec Lt Ramona Vein Ax v 209 SCV 72 cm/sec Lt Mid Graft VF 1603.00 mL/min STENT MEASUREMENTS: Left Velocity Location distal AVG and AX V Lt Stent Prx PSV 392.00 cm/sec Lt Stent Mid PSV 237.00 cm/sec Lt Stent Dst PSV 191.00 cm/sec Lt Stent Dst Ramona PSV 200.00 cm/sec FINDINGS: Study Quality: The [...] Sex: M Study Date: 04/12/2025 08:02:05 AM Application Design Engineer: LORI RICE Provider: KATHLEEN MACK Ref Provider: [...] cm/sec Lt Location LT Brach-Ax AVG Lt Ramona Artery 273.00 cm/sec Lt Arterial Anast 530.00 cm/sec Lt Prx Graft 612.00 cm/sec Lt Prx-Mid Graft 297.00 cm/sec Lt Mid Graft 228.00 cm/sec Lt Dst Graft 424.00 cm/sec Lt Venous Anast 234.00 cm/sec Lt Ramona Vein Ax v 209 SCV 72 cm/sec Lt Mid Graft VF 1603.00 mL/min STENT MEASUREMENTS: Left Velocity Location distal AVG and AX V Lt Stent Prx PSV 392.00 cm/sec Lt Stent Mid PSV 237.00 cm/sec Lt Stent Dst PSV 191.00 cm/sec Lt Stent Dst Ramona PSV 200.00 cm/sec FINDINGS: Study Quality: The [...] 04/13/2025 2:28:29 PM CDT Kathleen Mack MD [facility] PROCEDURES Final Result from Last 3 Months Insurance 2000 [id number] MEDICARE ADVANTAGE IDPA IDPA [facility] MEDICARE ADVANTAGE [facility] Advance Directives For more information, please contact: [phone] * Full Code (Latest Code Status on File) Date Activated Date Inactivated Comments 05/16/2021 9:43 PM 05/19/2021 11:18 PM Care Teams Clinical Director Relationship Specialty Start Date End Date Maria Elena Martell MD [address] [address] PCP - General Internal Medicine 09/09/23 Adama Mack MD [address] [place] [address] Surgeon Surgery 09/09/23
--- OUTSIDE RECORDS SUMMARY | 2025-04-16 09:44 | XMS_ITS | Encounter Summary ---
Author Organization [facility] Healthcare Address [address] [place] [address] Care Team Providers Care Carbon Brush Maker Name Role Phone Cuong Hayes MD Primary Care Provider [phone] Maria Elena Martell MD Primary Care Provider Adama Mack MD Unavailable [phone] Encounter Details Date Type Department Care Team (Late st Contact Info) Description 08/27/2023 Telephone [facility] at [facility] [address] [place] [address] Adama Mack MD [address] [facility] [address] [facility] [address] [place] [address] Social History Tobacco Use Types Packs/Day Years [...] on file Legal Sex Male 10:12 AM NAVAL AIRCREWMAN HELICOPTER Gender Identity Not on file Sexual Orientation Not on file documented as of this encounter Functional Status * AUDIT-C Score Answer Date of Assessment Author 3 08/28/2023 12:59 PM NAVAL AIRCREWMAN HELICOPTER Brett Jackson, RN * Question Answer Date of Assessment Author Q1: How often do you have a drink containing alcohol? 2-3 times a week 08/28/2023 12:59 PM NAVAL AIRCREWMAN HELICOPTER Brett Jackson, RN Q2: How many drinks containing alcohol do you have on a typical day when you are drinking? 1 or 2 08/28/2023 12:59 PM NAVAL AIRCREWMAN HELICOPTER Brett Jackson, RN Q3: How often do you have six or more drinks on one occasion? Never 08/28/2023 12:59 PM NAVAL AIRCREWMAN HELICOPTER Brett Jackson, ДМИТРИЙ documented as of this encounter Plan of Treatment Upcoming Encounters Date Type Department Care Team (Latest Contact Info) Description 05/05/2025 8:00 AM NAVAL AIRCREWMAN HELICOPTER Hospital Encounter [facility] Cardiac Centrifugal Screen Tender [address] [place] [address] Alex Mack MD [facility] [address] [place] [address] ESRD (end stage renal disease) on dialysis (HCC) 05/05/2025 8:00 AM NAVAL AIRCREWMAN HELICOPTER - 05/05/2025 8:46 AM [facility] Surgery [facility] Cardiac Centrifugal Screen Tender [address] [place] [address] Alex Mack MD [address] [facility] [address] [place] [address] Dialysis Circuit Angiogram documented as of this encounter Visit Diagnoses Not on filedocumented in this encounter Care Teams Carbon Brush Maker Relationship Specialty Start Date End Date Cuong Hayes MD PCP - General Nephrology 05/09/21 09/08/23 [place] [address] [place] [address] PCP - General Internal Medicine 09/09/23 Adama Mack MD [address] [facility] [address] [place] [address] Surgeon Surgery 09/09/23 documented as of this encounter
[2025-04-16 09:45] VITALS: BP 158/92; PULSE 68; RESP 16; TEMP 36.6; O2SAT 100
--- OUTSIDE RECORDS SUMMARY | 2025-04-16 10:04 | XMS_ITS | Clinical Summary ---
Author Organization [facility] Address [address] [facility] [place] [address] Care Team Providers Care Solar Sales Associate Name Role Phone Unavailable Primary Care Provider Unavailabl e Source Comments [facility],non-owned Affiliates and Associated Physician Practices is amultiple site organization consisting of ambulatory clinics and hospital sitesin [place], [place], [place] and [place]. This disclosure is being madepursuant to the Care Everywhere program and may not contain all information available regarding this patient. Last updated 18.[facility] Allergies No known active allergies Medications * Be aware that medications may not be up to date on this document. Alwaysverify current medications with the patient. allopurinol (Zyloprim) 300 MG tablet 3 Active atorvastatin (Lipitor) 40 MG tablet Take 1 (one) tablet by mouth once daily 3 Active B Bznvllp-K-Slhbg Acid (Misti-Wendy) Take 1 (one) tablet by mouth once daily 2 Active calcitriol (Rocaltrol) 0.25 MCG capsule Take 1 (one) capsule by mouth 2 times daily Active cloNIDine (Catapres) 0.2 MG tablet Take 1 (one) tablet by mouth 2 times daily Active ergocalciferol (Drisdol) 1.25 MG (39031 UT) capsule Take 1 (one) capsule by [...] on file Legal Sex Male 2:59 PM PLANT OPERATOR HELPER Gender Identity Not on file Sexual Orientation [...] topic Insurance 2000 Ji [id number] MANAGED MEDICARE ADV [facility]LY [facility]
--- OUTSIDE RECORDS SUMMARY | 2025-04-16 10:04 | XMS_ITS | Encounter Summary ---
Author Organization [facility] Healthcare Address [address] [facility] [place] [address] Care Team Providers Care Laboratory Sampler Name Role Phone Maria Elena Martell MD Primary Care Provider Adama Mack MD Unavailable [phone] Encounter Details Date Type Department Care Team (Late st Contact Info) Description 01/07/2024 Telephone [facility] at [facility] [address] [facility] [address] [place] [address] Adama Mack MD [facility] [place] [address] Social History Tobacco Use Types Packs/Day Years [...] on file Legal Sex Male 10:12 AM BUTTER PRINTER Gender Identity Not on file Sexual Orientation Not on file documented as of this encounter Plan of Treatment Upcoming Encounters Date Type Department Care Team (Latest Contact Info) Description 05/05/2025 8:00 AM BUTTER PRINTER Hospital Encounter [facility] Cardiac Sharepoint Administrator [address] [place] [address] Alex Mack MD [address] [facility] [address] [place] [address] ESRD (end stage renal disease) on dialysis (HCC) 05/05/2025 8:00 AM BUTTER PRINTER - 05/05/2025 8:46 AM BUTTER PRINTER Surgery [facility] Cardiac Sharepoint Administrator [address] [place] [address] Alex Mack MD [address] [facility] [address] [place] [address] Dialysis Circuit Angiogram documented as of this encounter Visit Diagnoses Not on filedocumented in this encounter Care Teams Laboratory Sampler Relationship Specialty Start [place] [address] [place] [address] PCP - General Internal Medicine 09/09/23 Adama Mack MD [address] [facility] [address] [place] [address] Surgeon Surgery 09/09/23 documented as of this encounter
--- OUTSIDE RECORDS SUMMARY | 2025-04-16 10:04 | XMS_ITS | Encounter Summary ---
Author Organization [facility] Healthcare Address [address] [place] [address] Care Team Providers Care Linoleum Tile Layer Name Role Phone Cuong Hayes MD Primary Care Provider [phone] Maria Elena Martell MD Primary Care Provider Adama Mack MD Unavailable [phone] Encounter Details Date Type Department Care Team (Late st Contact Info) Description 08/27/2023 Telephone [facility] at [facility] [address] [place] [address] Adama Mack MD [address] [facility] [address] [facility] [address] [place] [address] Social History Tobacco Use Types Packs/Day Years [...] on file Legal Sex Male 10:12 AM TRANSLATOR DEAF Gender Identity Not on file Sexual Orientation Not on file documented as of this encounter Functional Status * AUDIT-C Score Answer Date of Assessment Author 3 08/28/2023 12:59 PM TRANSLATOR DEAF Brett Jackson, RN * Question Answer Date of Assessment Author Q1: How often do you have a drink containing alcohol? 2-3 times a week 08/28/2023 12:59 PM TRANSLATOR DEAF Brett Jackson, RN Q2: How many drinks containing alcohol do you have on a typical day when you are drinking? 1 or 2 08/28/2023 12:59 PM TRANSLATOR DEAF Brett Jackson, RN Q3: How often do you have six or more drinks on one occasion? Never 08/28/2023 12:59 PM TRANSLATOR DEAF Brett Jackson, ДМИТРИЙ documented as of this encounter Plan of Treatment Upcoming Encounters Date Type Department Care Team (Latest Contact Info) Description 05/05/2025 8:00 AM TRANSLATOR DEAF Hospital Encounter [facility] Cardiac Dobie Worker [address] [place] [address] Alex Mack MD [facility] [address] [place] [phone] ESRD (end stage renal disease) on dialysis (HCC) 05/05/2025 8:00 AM TRANSLATOR DEAF - 05/05/2025 8:46 AM [facility] Surgery [facility] Cardiac Dobie Worker [address] [place] [address] Alex Mack MD [address] [facility] [address] [place] [address] [facility] Angiogram documented as of this encounter Visit Diagnoses Not on filedocumented in this encounter Care Teams Linoleum Tile Layer Relationship Specialty Start Date End Date Cuong Hayes MD PCP - General Nephrology 05/09/21 09/08/23 [place] [address] [place] [id number] PCP - General Internal Medicine 09/09/23 Adama Mack MD [address] [facility] [address] [place] [address] Surgeon Surgery 09/09/23 documented as of this encounter
--- OUTSIDE RECORDS SUMMARY | 2025-04-16 10:04 | XMS_ITS | Clinical Summary ---
Author Organization [facility] Address [address] [place] [address] Care Team Providers Care Sign Hanger Name Role Phone Maria Elena Martell MD Primary Care Provider Adama Mack MD Unavailable [phone] Allergies No known active allergies Medications [...] dialysis. Assessment & Plan (08/10/2024 10:22 AM EXTERIOR WORK HELPER): Continue to dialyze well without any issues. Follow up in 3 months for routine surveillance with AV duplex Assessment & Plan (05/04/2024 9:05 AM EXTERIOR WORK HELPER): Impression: Patient has a left brachial axillary [...] intact. Assessment & Plan (08/19/2023 4:31 PM EXTERIOR WORK HELPER): Impression: Patient has a left brachial axillary [...] Lipitor Assessment & Plan (08/10/2024 10:21 AM EXTERIOR WORK HELPER): Continue Lipitor Assessment & Plan (05/04/2024 9:03 AM EXTERIOR WORK HELPER): Impression: Chronic stable. Plan: Continue Lipitor Assessment & Plan (08/19/2023 4:32 PM EXTERIOR WORK HELPER): Impression: Chronic stable. Plan: Continue Lipitor Assessment & Plan (02/04/2023 12:40 PM CDT): Impression: Chronic stable. Plan: Continue Lipitor Assessment & Plan (11/05/2022 2:28 PM CDT): Lipitor Assessment & Plan (04/16/2021 2:47 PM CDT): Continue Lipitor. Primary hypertension 04/16/2021 Assessment & Plan (11/16/2024 10:18 AM CDT): Impression: Chronic and stable. Plan: Continue clonidine, Assessment & Plan (08/10/2024 10:22 AM EXTERIOR WORK HELPER): Continue clonidine Assessment & Plan (05/04/2024 9:03 AM EXTERIOR WORK HELPER): Impression: Chronic and stable. Plan: Continue Catapres Assessment & Plan (08/19/2023 4:32 PM EXTERIOR WORK HELPER): Impression: Chronic and stable. Plan: Continue clonidine [...] sites of eschar. Advised patient to advise microbiology quality control technician to avoid these areas to prevent [...] Department Care Team Description 04/13/2025 [facility] [address] [place] [address] Kathleen Mack MD Dependence on renal dialysis (Primary Dx); End stage renal disease; Other specified complication of vascular prosthetic devices, implants and grafts, initial encounter 04/13/2025 Telephone [facility] Dialysis Access Center at [address] [place] [address] Kathleen Mack MD Prior Auth for Fistulogram (Prior Auth Not Required per [facility] automated system. ) 04/12/2025 7:31 AM CDT - 04/12/2025 11:59 PM CDT Hospital Encounter [facility] Dialysis Access Center at [address] [place] [address] ESRD (end stage renal disease) on dialysis (HCC) (Primary Dx); Mixed hyperlipidemia Discharge Disposition: Discharge to home or self care 04/12/2025 7:31 AM CDT - 04/12/2025 11:59 PM CDT Hospital Encounter [facility] [address] [place] [address] [place] [address] ESRD (end stage renal disease) on dialysis [...] renal disease) H D on MWF at [facility] with R chest Perma Cath, sees Dr. [...] on file Legal Sex Male 10:12 AM EXTERIOR WORK HELPER Gender Identity Not on file Sexual [...] (Latest Contact Info) Description 05/05/2025 8:00 AM EXTERIOR WORK HELPER Hospital Encounter [facility] Cardiac Specimen Preparation Assistant [address] [place] [address] [place] [address] [place] [address] [address] [place] [address] ESRD (end stage renal disease) on dialysis (HCC) 05/05/2025 8:00 AM EXTERIOR WORK HELPER - 05/05/2025 8:46 AM EXTERIOR WORK HELPER Surgery [facility] Cardiac Specimen Preparation Assistant [address] [place] [address] Kathleen Mack MD [address] [facility] [address] [place] [address] Dialysis Circuit Angiogram Health Maintenance Due Date [...] history exists Medical Devices Implanted Type Area Tool Operator Device Identifier Shelf Expiration Date Model / Serial / Lot [employer] [id number] 4-7mm 45cm Stretch Peripheral Standard Electric Relay Tester Graft Vascular - [id number] - [id number] Implanted:Qty: 1 on 08/23/2021 by Yasmani Christopher MD at [facility] Graft Left: Arm [employer] [id number] 03/11/2026 [id number] / [id number] / [employer] Eastman Acuseal 4-7mm 45cm Taper Graft Vascular Sterile [id number] - [id number] - [id number] Implanted:Qty: 1 on 09/09/2023 by Adama Mack MD at [facility] Graft Left: Arm [employer] [id number] 12/02/2025 [id number] / [id number] / Pin Pin Left: Femur Ang[employer] [id number] Duramax Vascpak Safesheath D-Pro 15.5fr 28cm Kit Catheter - [id number] Implanted:Qty: 1 on 05/16/2021 at [facility] Ang[employer] Dynamics 07/30/2023 [id number] / / [id number] Bard Peripheral Vascular Covera 8mm 8fr 40mm 80cm Cover Helical Strut Thumbwheel [id number] - [id number] Implanted:Qty: 1 on 01/13/2024 by Adama Mack MD at [facility] Bard Peripheral Vascular 12/27/2024 [id number] / [id number] Procedures Procedure Name Priority Date/Time Associated Diagnosis [...] Sex: M Study Date: 04/12/2025 08:02:05 AM Treasury Consultant: LORI RICE Provider: KATHLEEN MACK Provider: KATHLEEN [...] cm/sec Lt Location LT Brach-Ax AVG Lt [place] Artery 273.00 cm/sec Lt Arterial Anast 530.00 cm/sec Lt Prx Graft 612.00 cm/sec Lt Prx-Mid Graft 297.00 cm/sec Lt Mid Graft 228.00 cm/sec Lt Dst Graft 424.00 cm/sec Lt Venous Anast 234.00 cm/sec Lt [place] Vein Ax v 209 SCV 72 cm/sec Lt Mid Graft VF 1603.00 mL/min STENT MEASUREMENTS: Left Velocity Location distal AVG and AX V Lt Stent Prx PSV 392.00 cm/sec Lt Stent Mid PSV 237.00 cm/sec Lt Stent Dst PSV 191.00 cm/sec Lt Stent Dst [place] PSV 200.00 cm/sec FINDINGS: Study Quality: The [...] Sex: M Study Date: 04/12/2025 08:02:05 AM Treasury Consultant: LORI RICE Provider: KATHLEEN MACK Ref Provider: [...] cm/sec Lt Location LT Brach-Ax AVG Lt [place] Artery 273.00 cm/sec Lt Arterial Anast 530.00 cm/sec Lt Prx Graft 612.00 cm/sec Lt Prx-Mid Graft 297.00 cm/sec Lt Mid Graft 228.00 cm/sec Lt Dst Graft 424.00 cm/sec Lt Venous Anast 234.00 cm/sec Lt [place] Vein Ax v 209 SCV 72 cm/sec Lt Mid Graft VF 1603.00 mL/min STENT MEASUREMENTS: Left Velocity Location distal AVG and AX V Lt Stent Prx PSV 392.00 cm/sec Lt Stent Mid PSV 237.00 cm/sec Lt Stent Dst PSV 191.00 cm/sec Lt Stent Dst [place] PSV 200.00 cm/sec FINDINGS: Study Quality: The [...] 04/13/2025 2:28:29 PM CDT Kathleen Mack MD [facility] PROCEDURES Final Result from Last 3 Months Insurance [id number] MEDICARE ADVANTAGE IDPA IDPA [facility] MEDICARE ADVANTAGE [facility] Advance Directives For more information, please contact: [phone] * Full Code (Latest Code Status on File) Date Activated Date Inactivated Comments 05/16/2021 9:43 PM 05/19/2021 11:18 PM Care Teams Sign Hanger Relationship Specialty Start Date End Date Maria Elena Martell MD [address] [address] PCP - General Internal Medicine 09/09/23 Adama Mack MD [address] [facility] [address] [place] [address] Surgeon Surgery 09/09/23
== END 2025-04-16 10:11 | disposition home or self-care (01) ==
LOC: ANHED 10:01
PROVIDERS: Emergency Provider Emergency Medicine; PCP Internal Medicine Infectious Disease
DX: Z48.00 Encounter for change or removal of nonsurgical wound dressing (principal); N18.6 End stage renal disease; Z99.2 Dependence on renal dialysis; D64.9 Anemia, unspecified; E78.5 Hyperlipidemia, unspecified; K21.9 Gastro-esophageal reflux disease without esophagitis; Z79.899 Other long term (current) drug therapy
CPT/HCPCS: 99282